=== PATIENT | female | born 1955 | race Asian ===

== ENCOUNTER 2016-12-22 18:27 | Inpatient (IN) | payer OTHER ==
[~2016-12-22] VITALS: Ht 160 cm; Wt 63.5 kg
[2016-12-22 19:30] VITALS: BP 118/65
[2016-12-22] MEDS ORDERED: PIP/TAZO PER PHARMACY MC PRN (20:45)
[2016-12-22] MEDS: IV NORMAL SALINE 1000ML BAG 1,000 ML IV SCH (20:45)
[2016-12-22] MEDS ORDERED: ONDANSETRON PF 4 MG/2 ML VIAL. IV PRN (20:45)
--- NOTE | 2016-12-22 22:56 | PDOC1 ---
History and Physical Date of Admission Date of Admission DATE: 12/22/16 TIME: 22:51 Identification/Chief Complaint Chief Complaint abdominal pain Problems: Source Source: Chart review, Patient History of Present Illness History of Present Illness pt was transferred from [facility]. presented there with acute abdominal pain and malaise. She is traveling here from [place] to visit her son, speaks Ma[place], and the son was avail to translate. Acute pain and nausea, mid epigastric pain, he reports pain to have been 10.10 at other hospital, but she is calm and relaxed now and was trying to sleep when I discussed her care. Past Medical History Cardiovascular: HTN GI: No pertinent hx Hepatobiliary: No pertinent hx Psych: No pertinent hx Rheumatologic: No pertinent hx Family History Family History: Family History Unknown Social History Smoke: No ALCOHOL: none Drugs: None Current Medications Current Medications Current Medications Sodium Chloride 1,000 ml @ 100 mls/hr Q10H IV ; Start 12/22/16 at 20:45 Morphine Sulfate 4 mg PRN Q2HR PRN IV PAIN; Start 12/22/16 at 20:45 Ondansetron HCl (Zofran) 4 mg PRN Q8HRS PRN IV NAUSEA/VOMITING; Start at 20:45 Piperacillin Sod/ Tazobactam Sod (Zosyn Per Pharmacy) 1 each PRN DAILY PRN MC SEE COMMENTS; Start 12/22/16 at 20:45 Piperacillin Sod/ Tazobactam Sod (Zosyn) 3.375 gm Q6HRS IVP ; Start 12/23/16 at 00:00 Simvastatin (Zocor) 20 mg HS PO ; Start 12/23/16 at 21:00 Hydrochlorothiazide (Hydrodiuril) 25 mg DAILY PO ; Start 12/23/16 at 09:00 Amlodipine Besylate (Norvasc) 10 mg DAILY PO ; Start 12/23/16 at 09:00 Carvedilol (Coreg) 12.5 mg BIDWMEALS PO ; Start 12/23/16 at 08:00 Allergies Allergies: Coded Allergies: No Known Drug Allergies (Unverified , 12/22/16) ROS Review of System unable due to language barrier Physical Exam General: Alert, Cooperative, mild distress HEENT: EOMI, Mucous membr. moist/pink Lungs: Normal air movement Heart: no gallops, no murmurs Abdomen: Soft, Other (tender epigastrum) Extremities: No edema, Normal pulses Skin: No rashes, No breakdown Neuro: Sensation intact Psych/Mental Status: Mood NL Vitals Vitals Vital Signs Date Time Temp Pulse Resp B/P (MAP) Pulse Ox O2 Delivery O2 Flow Rate FiO2 12/22/16 19:30 99.7 74 16 118/65 (82) 98 Nasal Cannula 2.0 99.7 VTE Prophylaxis Ordered VTE Prophylaxis Devices: Yes VTE Pharmacological Prophylaxi: No Assessment/Plan Assessment/Plan acute abd pain, acute cholecystitis with choledochalithiasis seen on CT scan at outside hospital, IV zosyn started, will contine and make NPO and consult Surgery acute transaminitis, AST 894, ALT 1313, will repeat in AM, consult GI Bili 2.3 WBC 12. 6, leukocytosis only, no other sign of sepsis here. htn at baseline, mult agents, cont as able, hold for hypotension IV fluid 100/jht hypokalemia 3.1, treated at [facility], repeat in AM admit ORIN FINE MD Dec 22, 2016 22:56
[2016-12-22 22:58] VITALS: BP 124/66
[2016-12-23] VITALS (10 sets, daily range): BP systolic 101–120; BP diastolic 36–70
[2016-12-23] MEDS: PIPERACILLIN/TAZO IV Push 3.375 GM VIAL. IVP SCH ×5 (00:03→23:47)
[2016-12-23 05:37] LABS: INR 1.1 (0.8-1.1); PROTHROMBIN TIME PATIENT 13.3 SEC (11.7-14.0)
[2016-12-23 05:44] LABS: BASO % 0 % (0-3); EOS % 0 % (0-3); HEMATOCRIT 35.2 % (36.0-47.0); HEMOGLOBIN 12.2 g/dL (12.0-15.5); LYMPH # 0.6 x10^3/uL (1.0-4.8); LYMPH % 5 % (24-48); MEAN CORPUSCULAR HEMOGLOBIN 32 pg (25-35); MEAN CORPUSCULAR HGB CONC 35 g/dL (31-37); MEAN CORPUSCULAR VOLUME 91 fL (79-100); MONO % 5 % (0-9); NEUT % 90 % (31-73); PLATELET COUNT 178 x10^3/uL (140-400); RED BLOOD COUNT 3.86 x10^6/uL (3.50-5.40); RED CELL DISTRIBUTION WIDTH 12.9 % (11.5-14.5)
[2016-12-23 06:02] LABS: ALBUMIN 2.9 g/dL (3.4-5.0); ALBUMIN/GLOBULIN RATIO 0.7 (1.0-1.7); CALCIUM 8.7 mg/dL (8.5-10.1); CREATININE 0.7 mg/dL (0.6-1.0); GFR 84.5; TOTAL BILIRUBIN 3.8 mg/dL (0.2-1.0); TOTAL PROTEIN 6.9 g/dL (6.4-8.2)
[2016-12-23 06:05] LABS: POTASSIUM 2.6 mmol/L (3.5-5.1)
[2016-12-23] MEDS: IV NORMAL SALINE 1000ML BAG 1,000 ML IV SCH (06:45)
[2016-12-23] MEDS: CARVEDILOL 12.5 MG TABLET. PO SCH ×2 (08:00→18:36)
--- NOTE | 2016-12-23 08:39 | PDOC2 ---
GI CONSULT Reason For Consult: Choledocholithiasis HPI: HPI: 61 y/o female transferred from [facility]. History from chart and via phone w/ son who translates. 4-5 epigastric pain radiating to back, worse yesterday. Denies n/v, diarrhea, fever. Found w/ elevated LFTs and abnormal imaging w/ distended GB w/ sludge and probable calculi, intrahepatic and extra hepatic bile dilatation, and choledocholithiasis (CBD 14mm w/ 9mm density, probable stone). Labs below, bili worse. Lipase WNL @ [facility]. PMH: PMH: HTN, HLD FH: Family History: No pertinent hx Social History: Smoke: No ALCOHOL: none Drugs: None ROS: GEN: Denies fevers, chills, sweats HEENT: Denies blurred vision, sore throat CV: Denies chest pain RESP: Denies shortness of air, cough GI: Per HPI : Denies hematuria, dysuria ENDO: Denies weight changes NEURO: Denies confusion, dizziness MSK: Denies weakness, joint pain/swelling SKIN: Denies jaundice, pruritus Vitals: Vitals: Vital Signs Date Time Temp Pulse Resp B/P (MAP) Pulse Ox O2 Delivery O2 Flow Rate FiO2 12/23/16 03:08 98.5 74 18 120/60 (80) 98 Nasal Cannula 2.0 98.5 Labs: Labs: Laboratory Tests Test 12/23/16 04:04 White Blood Count 13.0 x10^3/uL (4.0-11.0) Red Blood Count 3.86 x10^6/uL (3.50-5.40) Hemoglobin 12.2 g/dL (12.0-15.5) Hematocrit 35.2 % (36.0-47.0) Mean Corpuscular Volume 91 fL (79-100) Mean Corpuscular Hemoglobin 32 pg (25-35) Mean Corpuscular Hemoglobin Concent 35 g/dL (31-37) Red Cell Distribution Width 12.9 % (11.5-14.5) Platelet Count 178 x10^3/uL (140-400) Neutrophils (%) (Auto) 90 % (31-73) Lymphocytes (%) (Auto) 5 % (24-48) Monocytes (%) (Auto) 5 % (0-9) Eosinophils (%) (Auto) 0 % (0-3) Basophils (%) (Auto) 0 % (0-3) Neutrophils # (Auto) 11.7 x10^3uL (1.8-7.7) Lymphocytes # (Auto) 0.6 x10^3/uL (1.0-4.8) Monocytes # (Auto) 0.6 x10^3/uL (0.0-1.1) Eosinophils # (Auto) 0.0 x10^3/uL (0.0-0.7) Basophils # (Auto) 0.0 x10^3/uL (0.0-0.2) Prothrombin Time 13.3 SEC (11.7-14.0) Prothromb Time International Ratio 1.1 (0.8-1.1) Sodium Level 140 mmol/L (136-145) Potassium Level 2.6 mmol/L (3.5-5.1) Chloride Level 102 mmol/L (98-107) Carbon Dioxide Level 29 mmol/L (21-32) Anion Gap 9 (6-14) Blood Urea Nitrogen 14 mg/dL (7-20) Creatinine 0.7 mg/dL (0.6-1.0) Estimated GFR (Cockcroft-Gault) 84.5 BUN/Creatinine Ratio 20 (6-20) Glucose Level 132 mg/dL (70-99) Calcium Level 8.7 mg/dL (8.5-10.1) Magnesium Level 2.0 mg/dL (1.8-2.4) Total Bilirubin 3.8 mg/dL (0.2-1.0) Aspartate Amino Transf (AST/SGOT) 652 U/L (15-37) Alanine Aminotransferase (ALT/SGPT) 1226 U/L (14-59) Alkaline Phosphatase 366 U/L (46-116) Total Protein 6.9 g/dL (6.4-8.2) Albumin 2.9 g/dL (3.4-5.0) Albumin/Globulin Ratio 0.7 (1.0-1.7) Allergies: Coded Allergies: No Known Drug Allergies (Unverified , 12/22/16) Medications: Current Medications Medications (Trade) Dose Ordered Sig/Justin Route PRN Reason Start Time Stop Time Status Last Admin Dose Admin Sodium Chloride 1,000 ml @ 100 mls/hr Q10H IV 12/22/16 20:45 12/22/16 20:45 Piperacillin Sod/ Tazobactam Sod (Zosyn) 3.375 gm Q6HRS IVP 12/23/16 00:00 12/23/16 06:26 Potassium Chloride/Dextrose/ Sod Cl 1,000 ml @ 100 mls/hr BID IV 12/23/16 09:00 12/23/16 06:26 Imaging: Imaging: Per [facility] recs PE: GEN: NAD HEENT: Atraumatic, PERRL LUNGS: CTAB HEART: RRR ABD: NABS, epigastric tenderness EXTREMITY: No edema SKIN: ?jaundice NEURO/PSYCH: A & O 3 A/P: A/P: Upper abd pain, n/v Elevated LFTs Dilated CBD, probable choledocholithiasis GB sludge/stones Leukocytosis - on IV atbx Hypokalemia - has replacement ordered -- Need to correct K+ before ERCP - ?increase rate, defer to primary/anesthesia. D/w primary, RN, and GI lab. Discussed procedure w/ son via phone. JAIME WARREN Dec 23, 2016 08:39
[2016-12-23] MEDS ORDERED: amLODIPine BESYLATE 10 MG TABLET PO SCH (09:00)
[2016-12-23] MEDS ORDERED: POTASSIUM CL 40MEQ D5-0.45NACL 1,000 ML IV PRN (09:00)
[2016-12-23] MEDS ORDERED: hydroCHLOROthiazide 25 MG TABLET PO SCH (09:00)
[2016-12-23] MEDS ORDERED: POTASSIUM CL 40MEQ D5-0.45NACL 1,000 ML IV SCH (09:00)
[2016-12-23 09:05] LABS: PLT ESTIMATE ADEQUATE (ADEQUATE)
[2016-12-23] MEDS ORDERED: POTASSIUM CHLORIDE 40 MEQ in IV NORMAL SALINE 500ML BAG 500 ML IV ONE (11:00)
--- NOTE | 2016-12-23 11:09 | PDOC2 ---
KEVINJEROME Sunshine NURSE LEADER 12/23/16 1109: CONSULT Date of Consult Date of Consult DATE: 12/23/16 TIME: 11:04 Reason for Consult Reason for Consult: cholecystitis Referring Physician Referring Physician: Dr Romo Identification/Chief Complaint Chief Complaint abdominal pain Problems: Source Source: Caregiver, Chart review, Patient History of Present Illness Reason for Visit: Patient son interprets for patient. 4 day history of upper abdominal pain. Tried some Vicky Conner---did not help. yesterday worsening pain with radiation to back. Seen in ER at , choledocholithiasis--GI evaluated, plans for ERCP today Past Medical History Cardiovascular: HTN GI: No pertinent hx Hepatobiliary: No pertinent hx Psych: No pertinent hx Rheumatologic: No pertinent hx Past Surgical History Past Surgical History: No pertinent history Family History Family History: Family History Unknown Social History No ALCOHOL: none Drugs: None Current Medications Current Medications Current Medications Sodium Chloride 1,000 ml @ 100 mls/hr Q10H IV Last administered on 12/22/16 20:45; Start 12/22/16 at 20:45; Stop 12/23/16 at 08:51; Status DC Morphine Sulfate 4 mg PRN Q2HR PRN IV PAIN; Start 12/22/16 at 20:45 Ondansetron HCl (Zofran) 4 mg PRN Q8HRS PRN IV NAUSEA/VOMITING; Start at 20:45 Piperacillin Sod/ Tazobactam Sod (Zosyn Per Pharmacy) 1 each PRN DAILY PRN MC SEE COMMENTS; Start 12/22/16 at 20:45 Piperacillin Sod/ Tazobactam Sod (Zosyn) 3.375 gm Q6HRS IVP Last administered on 12/23/16 06:26; Start 12/23/16 at 00:00 Simvastatin (Zocor) 20 mg HS PO ; Start 12/23/16 at 21:00 Hydrochlorothiazide (Hydrodiuril) 25 mg DAILY PO ; Start 12/23/16 at 09:00 Amlodipine Besylate (Norvasc) 10 mg DAILY PO ; Start 12/23/16 at 09:00 Carvedilol (Coreg) 12.5 mg BIDWMEALS PO ; Start 12/23/16 at 08:00 Potassium Chloride/Dextrose/ Sod Cl 1,000 ml @ 100 mls/hr BID IV Last administered on 12/23/16t 06:26; Start 12/23/16 at 09:00; Stop 12/23/16 at 09 :00; Status DC Potassium Chloride/Dextrose/ Sod Cl 1,000 ml @ 250 mls/hr CONT PRN IV SEE I/O RECORD; Start 12/23/16 at 09:00 Potassium Chloride 40 meq/ Sodium Chloride 520 ml @ 130 mls/hr 1X ONCE IV ; Start 12/23/16 at 11:00; Stop 12/23/16 at 14:59 Allergies Allergies: Coded Allergies: No Known Drug Allergies (Unverified , 12/22/16) ROS General: No: Chills, Other (fevers) PSYCHOLOGICAL ROS: No: Anxiety, Depression Eyes: No Blurry vision, No Double vision Hematological and Lymphatic: No: Bleeding Problems, Blood Clots Respiratory: No: Cough, Shortness of breath Cardiovascular: No Chest Pain, No Palpitations Gastrointestinal: Yes Other (see hpi) Genitourinary: No Dysuria, No Hematuria Musculoskeletal: Yes Muscle Pain (back), No Joint Pain Neurological: No Impaired Coord/balance, No Seizures Skin: No Pruritus, No Rash Physical Exam General: Alert, Oriented X3, Cooperative, No acute distress HEENT: PERRLA, Mucous membr. moist/pink, Other (jaundice) Lungs: Clear to auscultation, Normal air movement Heart: Regular rate, Normal S1, Normal S2, No murmurs Abdomen: Soft, Other (ND, upper abdominal TTP) Extremities: No clubbing, No cyanosis Skin: No rashes, No breakdown Neuro: Normal gait, Normal speech Psych/Mental Status: Mental status NL, Mood NL MUSCULOSKELETAL: No deformity, No swelling Vitals VITALS Vital Signs Date Time Temp Pulse Resp B/P (MAP) Pulse Ox O2 Delivery O2 Flow Rate FiO2 12/23/16 09:43 Nasal Cannula 2.0 12/23/16 07:00 98.8 66 18 119/66 (83) 98 98.8 Labs Labs Laboratory Tests Test 12/23/16 04:04 White Blood Count 13.0 x10^3/uL (4.0-11.0) Red Blood Count 3.86 x10^6/uL (3.50-5.40) Hemoglobin 12.2 g/dL (12.0-15.5) Hematocrit 35.2 % (36.0-47.0) Mean Corpuscular Volume 91 fL (79-100) Mean Corpuscular Hemoglobin 32 pg (25-35) Mean Corpuscular Hemoglobin Concent 35 g/dL (31-37) Red Cell Distribution Width 12.9 % (11.5-14.5) Platelet Count 178 x10^3/uL (140-400) Neutrophils (%) (Auto) 90 % (31-73) Lymphocytes (%) (Auto) 5 % (24-48) Monocytes (%) (Auto) 5 % (0-9) Eosinophils (%) (Auto) 0 % (0-3) Basophils (%) (Auto) 0 % (0-3) Neutrophils # (Auto) 11.7 x10^3uL (1.8-7.7) Lymphocytes # (Auto) 0.6 x10^3/uL (1.0-4.8) Monocytes # (Auto) 0.6 x10^3/uL (0.0-1.1) Eosinophils # (Auto) 0.0 x10^3/uL (0.0-0.7) Basophils # (Auto) 0.0 x10^3/uL (0.0-0.2) Segmented Neutrophils % 86 % (35-66) Band Neutrophils % 11 % (0-9) Lymphocytes % 2 % (24-48) Monocytes % 1 % (0-10) Platelet Estimate Adequate (ADEQUATE) Prothrombin Time 13.3 SEC (11.7-14.0) Prothromb Time International Ratio 1.1 (0.8-1.1) Sodium Level 140 mmol/L (136-145) Potassium Level 2.6 mmol/L (3.5-5.1) Chloride Level 102 mmol/L (98-107) Carbon Dioxide Level 29 mmol/L (21-32) Anion Gap 9 (6-14) Blood Urea Nitrogen 14 mg/dL (7-20) Creatinine 0.7 mg/dL (0.6-1.0) Estimated GFR (Cockcroft-Gault) 84.5 BUN/Creatinine Ratio 20 (6-20) Glucose Level 132 mg/dL (70-99) Calcium Level 8.7 mg/dL (8.5-10.1) Magnesium Level 2.0 mg/dL (1.8-2.4) Total Bilirubin 3.8 mg/dL (0.2-1.0) Aspartate Amino Transf (AST/SGOT) 652 U/L (15-37) Alanine Aminotransferase (ALT/SGPT) 1226 U/L (14-59) Alkaline Phosphatase 366 U/L (46-116) Total Protein 6.9 g/dL (6.4-8.2) Albumin 2.9 g/dL (3.4-5.0) Albumin/Globulin Ratio 0.7 (1.0-1.7) Laboratory Tests Test 12/23/16 04:04 White Blood Count 13.0 x10^3/uL (4.0-11.0) Red Blood Count 3.86 x10^6/uL (3.50-5.40) Hemoglobin 12.2 g/dL (12.0-15.5) Hematocrit 35.2 % (36.0-47.0) Mean Corpuscular Volume 91 fL (79-100) Mean Corpuscular Hemoglobin 32 pg (25-35) Mean Corpuscular Hemoglobin Concent 35 g/dL (31-37) Red Cell Distribution Width 12.9 % (11.5-14.5) Platelet Count 178 x10^3/uL (140-400) Neutrophils (%) (Auto) 90 % (31-73) Lymphocytes (%) (Auto) 5 % (24-48) Monocytes (%) (Auto) 5 % (0-9) Eosinophils (%) (Auto) 0 % (0-3) Basophils (%) (Auto) 0 % (0-3) Neutrophils # (Auto) 11.7 x10^3uL (1.8-7.7) Lymphocytes # (Auto) 0.6 x10^3/uL (1.0-4.8) Monocytes # (Auto) 0.6 x10^3/uL (0.0-1.1) Eosinophils # (Auto) 0.0 x10^3/uL (0.0-0.7) Basophils # (Auto) 0.0 x10^3/uL (0.0-0.2) Segmented Neutrophils % 86 % (35-66) Band Neutrophils % 11 % (0-9) Lymphocytes % 2 % (24-48) Monocytes % 1 % (0-10) Platelet Estimate Adequate (ADEQUATE) Prothrombin Time 13.3 SEC (11.7-14.0) Prothromb Time International Ratio 1.1 (0.8-1.1) Sodium Level 140 mmol/L (136-145) Potassium Level 2.6 mmol/L (3.5-5.1) Chloride Level 102 mmol/L (98-107) Carbon Dioxide Level 29 mmol/L (21-32) Anion Gap 9 (6-14) Blood Urea Nitrogen 14 mg/dL (7-20) Creatinine 0.7 mg/dL (0.6-1.0) Estimated GFR (Cockcroft-Gault) 84.5 BUN/Creatinine Ratio 20 (6-20) Glucose Level 132 mg/dL (70-99) Calcium Level 8.7 mg/dL (8.5-10.1) Magnesium Level 2.0 mg/dL (1.8-2.4) Total Bilirubin 3.8 mg/dL (0.2-1.0) Aspartate Amino Transf (AST/SGOT) 652 U/L (15-37) Alanine Aminotransferase (ALT/SGPT) 1226 U/L (14-59) Alkaline Phosphatase 366 U/L (46-116) Total Protein 6.9 g/dL (6.4-8.2) Albumin 2.9 g/dL (3.4-5.0) Albumin/Globulin Ratio 0.7 (1.0-1.7) Assessment/Plan Assessment/Plan choledocholithiasis hypokalemia--replacement per [facility] plans for ERCP on abx will follow, will need lap lexii at some point YOLANDE MEDELLIN MD 12/23/16 1207: CONSULT Allergies Allergies: Coded Allergies: No Known Drug Allergies (Unverified , 12/22/16) Assessment/Plan Assessment/Plan Patient seen and examined by me. Resting comfortably in bed. Mild TTP RUQ. U/S reviewed. Planned for ERCP today will need L/S Lexii after. Agree with Kevin's assessment and plan. JEROME PACHECO APRN Dec 23, 2016 11:09 YOLANDE MEDELLIN MD Dec 23, 2016 12:07
--- NOTE | 2016-12-23 14:53 | PDOC ---
PROGRESS NOTES Chief Complaint Chief Complaint acute abd pain, acute cholecystitis with choledochalithiasis seen on CT scan at outside hospital acute transaminitis, AST 894, ALT 1313 , Bili 2.3 sepsis HTN hypoKalemia plan: fu with sx, gi, zosyn cover for possible cholangitis ERCP today need sx chyna sometime pain control npo cont only coreg for HTN dvt, gi ppx labs tmr replete k History of Present Illness History of Present Illness ROS: no fever, chills, sob, chest pain Worsening LFT pain is slightly better WBC higher too Vitals Vitals Vital Signs Date Time Temp Pulse Resp B/P (MAP) Pulse Ox O2 Delivery O2 Flow Rate FiO2 12/23/16 11:00 100.2 71 18 120/56 (77) 97 Nasal Cannula 2.0 100.2 Physical Exam General: Alert, Oriented X3, Cooperative, No acute distress Heart: Regular rate, Normal S1, Normal S2, No murmurs Lungs: Clear Abdomen: Normal bowel sounds, Soft, Other (ND, upper abdominal TTP) Extremities: No clubbing, No cyanosis Skin: No rashes, No breakdown Labs LABS Laboratory Tests Test 12/23/16 04:04 12/23/16 13:05 White Blood Count 13.0 x10^3/uL (4.0-11.0) Red Blood Count 3.86 x10^6/uL (3.50-5.40) Hemoglobin 12.2 g/dL (12.0-15.5) Hematocrit 35.2 % (36.0-47.0) Mean Corpuscular Volume 91 fL (79-100) Mean Corpuscular Hemoglobin 32 pg (25-35) Mean Corpuscular Hemoglobin Concent 35 g/dL (31-37) Red Cell Distribution Width 12.9 % (11.5-14.5) Platelet Count 178 x10^3/uL (140-400) Neutrophils (%) (Auto) 90 % (31-73) Lymphocytes (%) (Auto) 5 % (24-48) Monocytes (%) (Auto) 5 % (0-9) Eosinophils (%) (Auto) 0 % (0-3) Basophils (%) (Auto) 0 % (0-3) Neutrophils # (Auto) 11.7 x10^3uL (1.8-7.7) Lymphocytes # (Auto) 0.6 x10^3/uL (1.0-4.8) Monocytes # (Auto) 0.6 x10^3/uL (0.0-1.1) Eosinophils # (Auto) 0.0 x10^3/uL (0.0-0.7) Basophils # (Auto) 0.0 x10^3/uL (0.0-0.2) Segmented Neutrophils % 86 % (35-66) Band Neutrophils % 11 % (0-9) Lymphocytes % 2 % (24-48) Monocytes % 1 % (0-10) Platelet Estimate Adequate (ADEQUATE) Prothrombin Time 13.3 SEC (11.7-14.0) Prothromb Time International Ratio 1.1 (0.8-1.1) Sodium Level 140 mmol/L (136-145) Potassium Level 2.6 mmol/L (3.5-5.1) 3.5 mmol/L (3.5-5.1) Chloride Level 102 mmol/L (98-107) Carbon Dioxide Level 29 mmol/L (21-32) Anion Gap 9 (6-14) Blood Urea Nitrogen 14 mg/dL (7-20) Creatinine 0.7 mg/dL (0.6-1.0) Estimated GFR (Cockcroft-Gault) 84.5 BUN/Creatinine Ratio 20 (6-20) Glucose Level 132 mg/dL (70-99) Calcium Level 8.7 mg/dL (8.5-10.1) Magnesium Level 2.0 mg/dL (1.8-2.4) Total Bilirubin 3.8 mg/dL (0.2-1.0) Aspartate Amino Transf (AST/SGOT) 652 U/L (15-37) Alanine Aminotransferase (ALT/SGPT) 1226 U/L (14-59) Alkaline Phosphatase 366 U/L (46-116) Total Protein 6.9 g/dL (6.4-8.2) Albumin 2.9 g/dL (3.4-5.0) Albumin/Globulin Ratio 0.7 (1.0-1.7) Comment Review of Relevant I have reviewed the following items les (where applicable) has been applied. Labs Laboratory Tests Test 12/23/16 04:04 12/23/16 13:05 White Blood Count 13.0 x10^3/uL (4.0-11.0) Red Blood Count 3.86 x10^6/uL (3.50-5.40) Hemoglobin 12.2 g/dL (12.0-15.5) Hematocrit 35.2 % (36.0-47.0) Mean Corpuscular Volume 91 fL (79-100) Mean Corpuscular Hemoglobin 32 pg (25-35) Mean Corpuscular Hemoglobin Concent 35 g/dL (31-37) Red Cell Distribution Width 12.9 % (11.5-14.5) Platelet Count 178 x10^3/uL (140-400) Neutrophils (%) (Auto) 90 % (31-73) Lymphocytes (%) (Auto) 5 % (24-48) Monocytes (%) (Auto) 5 % (0-9) Eosinophils (%) (Auto) 0 % (0-3) Basophils (%) (Auto) 0 % (0-3) Neutrophils # (Auto) 11.7 x10^3uL (1.8-7.7) Lymphocytes # (Auto) 0.6 x10^3/uL (1.0-4.8) Monocytes # (Auto) 0.6 x10^3/uL (0.0-1.1) Eosinophils # (Auto) 0.0 x10^3/uL (0.0-0.7) Basophils # (Auto) 0.0 x10^3/uL (0.0-0.2) Segmented Neutrophils % 86 % (35-66) Band Neutrophils % 11 % (0-9) Lymphocytes % 2 % (24-48) Monocytes % 1 % (0-10) Platelet Estimate Adequate (ADEQUATE) Prothrombin Time 13.3 SEC (11.7-14.0) Prothromb Time International Ratio 1.1 (0.8-1.1) Sodium Level 140 mmol/L (136-145) Potassium Level 2.6 mmol/L (3.5-5.1) 3.5 mmol/L (3.5-5.1) Chloride Level 102 mmol/L (98-107) Carbon Dioxide Level 29 mmol/L (21-32) Anion Gap 9 (6-14) Blood Urea Nitrogen 14 mg/dL (7-20) Creatinine 0.7 mg/dL (0.6-1.0) Estimated GFR (Cockcroft-Gault) 84.5 BUN/Creatinine Ratio 20 (6-20) Glucose Level 132 mg/dL (70-99) Calcium Level 8.7 mg/dL (8.5-10.1) Magnesium Level 2.0 mg/dL (1.8-2.4) Total Bilirubin 3.8 mg/dL (0.2-1.0) Aspartate Amino Transf (AST/SGOT) 652 U/L (15-37) Alanine Aminotransferase (ALT/SGPT) 1226 U/L (14-59) Alkaline Phosphatase 366 U/L (46-116) Total Protein 6.9 g/dL (6.4-8.2) Albumin 2.9 g/dL (3.4-5.0) Albumin/Globulin Ratio 0.7 (1.0-1.7) Laboratory Tests Test 12/23/16 04:04 12/23/16 13:05 White Blood Count 13.0 x10^3/uL (4.0-11.0) Red Blood Count 3.86 x10^6/uL (3.50-5.40) Hemoglobin 12.2 g/dL (12.0-15.5) Hematocrit 35.2 % (36.0-47.0) Mean Corpuscular Volume 91 fL (79-100) Mean Corpuscular Hemoglobin 32 pg (25-35) Mean Corpuscular Hemoglobin Concent 35 g/dL (31-37) Red Cell Distribution Width 12.9 % (11.5-14.5) Platelet Count 178 x10^3/uL (140-400) Neutrophils (%) (Auto) 90 % (31-73) Lymphocytes (%) (Auto) 5 % (24-48) Monocytes (%) (Auto) 5 % (0-9) Eosinophils (%) (Auto) 0 % (0-3) Basophils (%) (Auto) 0 % (0-3) Neutrophils # (Auto) 11.7 x10^3uL (1.8-7.7) Lymphocytes # (Auto) 0.6 x10^3/uL (1.0-4.8) Monocytes # (Auto) 0.6 x10^3/uL (0.0-1.1) Eosinophils # (Auto) 0.0 x10^3/uL (0.0-0.7) Basophils # (Auto) 0.0 x10^3/uL (0.0-0.2) Segmented Neutrophils % 86 % (35-66) Band Neutrophils % 11 % (0-9) Lymphocytes % 2 % (24-48) Monocytes % 1 % (0-10) Platelet Estimate Adequate (ADEQUATE) Prothrombin Time 13.3 SEC (11.7-14.0) Prothromb Time International Ratio 1.1 (0.8-1.1) Sodium Level 140 mmol/L (136-145) Potassium Level 2.6 mmol/L (3.5-5.1) 3.5 mmol/L (3.5-5.1) Chloride Level 102 mmol/L (98-107) Carbon Dioxide Level 29 mmol/L (21-32) Anion Gap 9 (6-14) Blood Urea Nitrogen 14 mg/dL (7-20) Creatinine 0.7 mg/dL (0.6-1.0) Estimated GFR (Cockcroft-Gault) 84.5 BUN/Creatinine Ratio 20 (6-20) Glucose Level 132 mg/dL (70-99) Calcium Level 8.7 mg/dL (8.5-10.1) Magnesium Level 2.0 mg/dL (1.8-2.4) Total Bilirubin 3.8 mg/dL (0.2-1.0) Aspartate Amino Transf (AST/SGOT) 652 U/L (15-37) Alanine Aminotransferase (ALT/SGPT) 1226 U/L (14-59) Alkaline Phosphatase 366 U/L (46-116) Total Protein 6.9 g/dL (6.4-8.2) Albumin 2.9 g/dL (3.4-5.0) Albumin/Globulin Ratio 0.7 (1.0-1.7) Medications Current Medications Sodium Chloride 1,000 ml @ 100 mls/hr Q10H IV Last administered on 12/22/16t 20:45; Start 12/22/16 at 20:45; Stop 12/23/16 at 08:51; Status DC Morphine Sulfate 4 mg PRN Q2HR PRN IV PAIN; Start 12/22/16 at 20:45 Ondansetron HCl (Zofran) 4 mg PRN Q8HRS PRN IV NAUSEA/VOMITING; Start at 20:45 Piperacillin Sod/ Tazobactam Sod (Zosyn Per Pharmacy) 1 each PRN DAILY PRN MC SEE COMMENTS; Start 12/22/16 at 20:45 Piperacillin Sod/ Tazobactam Sod (Zosyn) 3.375 gm Q6HRS IVP Last administered on 12/23/16 11:20; Start 12/23/16 at 00:00 Simvastatin (Zocor) 20 mg HS PO ; Start 12/23/16 at 21:00 Hydrochlorothiazide (Hydrodiuril) 25 mg DAILY PO ; Start 12/23/16 at 09:00 Amlodipine Besylate (Norvasc) 10 mg DAILY PO ; Start 12/23/16 at 09:00 Carvedilol (Coreg) 12.5 mg BIDWMEALS PO ; Start 12/23/16 at 08:00 Potassium Chloride/Dextrose/ Sod Cl 1,000 ml @ 100 mls/hr BID IV Last administered on 12/23/16 06:26; Start 12/23/16 at 09:00; Stop 12/23/16 at 09 :00; Status DC Potassium Chloride/Dextrose/ Sod Cl 1,000 ml @ 250 mls/hr CONT PRN IV SEE I/O RECORD; Start 12/23/16 at 09:00 Potassium Chloride 40 meq/ Sodium Chloride 520 ml @ 130 mls/hr 1X ONCE IV Last administered on 12/23/16 11:19; Start 12/23/16 at 11:00; Stop 12/23/16 at 14:59 Vitals/I & O Vital Sign - Last 24 Hours 12/22/16 12/22/16 12/22/16 12/23/16 19:30 19:35 22:58 03:08 Temp 99.7 98.6 98.5 99.7 98.6 98.5 Pulse 74 76 74 Resp 16 18 18 B/P (MAP) 118/65 (82) 124/66 (85) 120/60 (80) Pulse Ox 98 98 98 O2 Delivery Nasal Cannula Nasal Cannula Nasal Cannula Nasal Cannula O2 Flow Rate 2.0 2.0 2.0 2.0 12/23/16 12/23/16 12/23/16 07:00 09:43 11:00 Temp 98.8 100.2 98.8 100.2 Pulse 66 71 Resp 18 18 B/P (MAP) 119/66 (83) 120/56 (77) Pulse Ox 98 97 O2 Delivery Nasal Cannula Nasal Cannula Nasal Cannula O2 Flow Rate 2.0 2.0 2.0 Intake and Output 12/22/16 12/22/16 12/23/16 14:59 22:59 06:59 Intake Total 0 ml Balance 0 ml JAMIE LEMUS MD Dec 23, 2016 14:53
[2016-12-23] MEDS ORDERED: ONDANSETRON PF 4 MG/2 ML VIAL. IV PRN (15:00)
[2016-12-23] MEDS ORDERED: ACETAMINOPHEN 325 MG TABLET. PO PRN (15:00)
[2016-12-23] MEDS ORDERED: DOCUSATE SODIUM 100 MG CAPSULE. PO PRN (15:00)
[2016-12-23] MEDS ORDERED: hydrALAZINE 20 MG/ML VIAL. IVP PRN (15:00)
[2016-12-23] MEDS ORDERED: MORPHINE SULFATE 2 MG/ML DISP.SYRIN. IV PRN (15:00)
[2016-12-23] MEDS ORDERED: traMADol 50 MG TABLET PO PRN (15:00)
[2016-12-23] MEDS ORDERED: IOHEXOL 300 MG/ML 100ML VIAL. ONE (16:19)
[2016-12-23] MEDS ORDERED: LIDOCAINE 2% PF Vial for OR 5 ML VIAL. ONE (16:37)
--- NOTE | 2016-12-23 17:22 | PDOC4 ---
PROCEDURE Procedure ERCP/ES/balloon stone extraction. Indication: choledocholithiasis Meds: GETA per anesthesia. Findings: E not seen. G and D normal. Bulging papilla with purulent drainage. Small periampulary tic. Cannulated, on cholangiogram to bifurcation, 2 8-10 mm stones. ES done, generous. --One stone exited spontaneously. -second stone extracted with balloon. Occlusion cholangiogram after with no further stones seen. Tiana. well. IMP: choledocholithiasis, resolved. cholangitis REC; Clears ok tonight. Continue antibiotics. chyna when feasible. Thanks. MANUELITO PENDLETON MD Dec 23, 2016 17:22
--- NOTE | 2016-12-23 17:55 | RAD ---
Indication: Status post ERCP. TECHNIQUE: Fluoroscopy images of the biliary tree and CBD status post and removal of 2 stones. Total fluoroscopy time of 2 minutes 7 seconds with 3 images. COMPARISON: None FINDINGS: CBD is diffusely dilated . The central intrahepatic biliary ducts show no abnormality. There is claw sign as suggested by contrast around the focal lucency in the distal CBD. This likely represents air. However distal CBD stone is not ruled out. Correlate with ERCP report. IMPRESSION: As above. Electronically signed by: Wade Winston DO (12/23/2016 5:52 PM) [facility]
[2016-12-23] MEDS: FAMOTIDINE 20 MG/2 ML VIAL IVP SCH (20:42)
[2016-12-23] MEDS: SIMVASTATIN 20 MG TABLET PO SCH (20:42)
[2016-12-24] VITALS (10 sets, daily range): BP systolic 99–126; BP diastolic 47–68
[2016-12-24] MEDS: POTASSIUM CL 40MEQ D5-0.45NACL 1,000 ML IV SCH ×3 (01:53→23:52)
[2016-12-24] MEDS: PIPERACILLIN/TAZO IV Push 3.375 GM VIAL. IVP SCH ×4 (05:37→23:51)
[2016-12-24 05:58] LABS: BASO % 0 % (0-3); EOS % 1 % (0-3); HEMATOCRIT 33.3 % (36.0-47.0); HEMOGLOBIN 11.6 g/dL (12.0-15.5); LYMPH # 0.8 x10^3/uL (1.0-4.8); LYMPH % 9 % (24-48); MEAN CORPUSCULAR HEMOGLOBIN 32 pg (25-35); MEAN CORPUSCULAR HGB CONC 35 g/dL (31-37); MEAN CORPUSCULAR VOLUME 91 fL (79-100); MONO % 5 % (0-9); NEUT % 85 % (31-73); PLATELET COUNT 143 x10^3/uL (140-400); RED BLOOD COUNT 3.67 x10^6/uL (3.50-5.40); WHITE BLOOD COUNT 8.5 x10^3/uL (4.0-11.0)
[2016-12-24 06:22] LABS: ALBUMIN 2.4 g/dL (3.4-5.0); ALBUMIN/GLOBULIN RATIO 0.6 (1.0-1.7); CALCIUM 8.4 mg/dL (8.5-10.1); CREATININE 0.7 mg/dL (0.6-1.0); GFR 84.5; POTASSIUM 3.4 mmol/L (3.5-5.1); TOTAL BILIRUBIN 4.7 mg/dL (0.2-1.0); TOTAL PROTEIN 6.4 g/dL (6.4-8.2)
[2016-12-24] MEDS ORDERED: IV RINGERS,LACTATED 1000ML 1,000 ML IV SCH (07:29)
[2016-12-24] MEDS ORDERED: MORPHINE SULFATE 2 MG/ML DISP.SYRIN. IV PRN (07:30)
[2016-12-24] MEDS ORDERED: LIDOCAINE 1% PF 2 ML VIAL. ID PRN (07:30)
[2016-12-24] MEDS ORDERED: HYDROmorphone 2 MG/ML VIAL IV PRN (07:30)
[2016-12-24] MEDS ORDERED: fentaNYL PF VIAL 100 MCG/2 ML VIAL IV PRN ×2 (07:30)
[2016-12-24] MEDS ORDERED: PROCHLORPERAZINE 10 MG/2 ML VIAL. IV PRN (07:30)
--- NOTE | 2016-12-24 08:15 | PDOC ---
JEROME PACHECO [employer] 12/24/16 0815: SURGICAL PROGRESS NOTE Subjective some RUQ pain still no emesis Vital Signs Vital Signs Date Time Temp Pulse Resp B/P (MAP) Pulse Ox O2 Delivery O2 Flow Rate FiO2 12/24/16 03:35 99.3 70 16 103/59 (74) 97 Room Air 99.3 12/23/16 23:16 2.0 I&O Intake and Output 12/24/16 07:00 Intake Total 200 ml Balance 200 ml Intake Oral 200 ml # Voids 2 General: Alert, Oriented X3, Cooperative, No acute distress HEENT: Other (jaundice) Abdomen: Soft, Other (RUQ TTP) Labs Laboratory Tests Test 12/23/16 04:04 12/23/16 13:05 12/24/16 05:00 White Blood Count 13.0 x10^3/uL (4.0-11.0) 8.5 x10^3/uL (4.0-11.0) Red Blood Count 3.86 x10^6/uL (3.50-5.40) 3.67 x10^6/uL (3.50-5.40) Hemoglobin 12.2 g/dL (12.0-15.5) 11.6 g/dL (12.0-15.5) Hematocrit 35.2 % (36.0-47.0) 33.3 % (36.0-47.0) Mean Corpuscular Volume 91 fL (79-100) 91 fL (79-100) Mean Corpuscular Hemoglobin 32 pg (25-35) 32 pg (25-35) Mean Corpuscular Hemoglobin Concent 35 g/dL (31-37) 35 g/dL (31-37) Red Cell Distribution Width 12.9 % (11.5-14.5) 13.0 % (11.5-14.5) Platelet Count 178 x10^3/uL (140-400) 143 x10^3/uL (140-400) Neutrophils (%) (Auto) 90 % (31-73) 85 % (31-73) Lymphocytes (%) (Auto) 5 % (24-48) 9 % (24-48) Monocytes (%) (Auto) 5 % (0-9) 5 % (0-9) Eosinophils (%) (Auto) 0 % (0-3) 1 % (0-3) Basophils (%) (Auto) 0 % (0-3) 0 % (0-3) Neutrophils # (Auto) 11.7 x10^3uL (1.8-7.7) 7.2 x10^3uL (1.8-7.7) Lymphocytes # (Auto) 0.6 x10^3/uL (1.0-4.8) 0.8 x10^3/uL (1.0-4.8) Monocytes # (Auto) 0.6 x10^3/uL (0.0-1.1) 0.4 x10^3/uL (0.0-1.1) Eosinophils # (Auto) 0.0 x10^3/uL (0.0-0.7) 0.1 x10^3/uL (0.0-0.7) Basophils # (Auto) 0.0 x10^3/uL (0.0-0.2) 0.0 x10^3/uL (0.0-0.2) Segmented Neutrophils % 86 % (35-66) Band Neutrophils % 11 % (0-9) Lymphocytes % 2 % (24-48) Monocytes % 1 % (0-10) Platelet Estimate Adequate (ADEQUATE) Prothrombin Time 13.3 SEC (11.7-14.0) Prothromb Time International Ratio 1.1 (0.8-1.1) Sodium Level 140 mmol/L (136-145) 139 mmol/L (136-145) Potassium Level 2.6 mmol/L (3.5-5.1) 3.5 mmol/L (3.5-5.1) 3.4 mmol/L (3.5-5.1) Chloride Level 102 mmol/L (98-107) 104 mmol/L (98-107) Carbon Dioxide Level 29 mmol/L (21-32) 28 mmol/L (21-32) Anion Gap 9 (6-14) 7 (6-14) Blood Urea Nitrogen 14 mg/dL (7-20) 12 mg/dL (7-20) Creatinine 0.7 mg/dL (0.6-1.0) 0.7 mg/dL (0.6-1.0) Estimated GFR (Cockcroft-Gault) 84.5 84.5 BUN/Creatinine Ratio 20 (6-20) 17 (6-20) Glucose Level 132 mg/dL (70-99) 117 mg/dL (70-99) Calcium Level 8.7 mg/dL (8.5-10.1) 8.4 mg/dL (8.5-10.1) Magnesium Level 2.0 mg/dL (1.8-2.4) Total Bilirubin 3.8 mg/dL (0.2-1.0) 4.7 mg/dL (0.2-1.0) Aspartate Amino Transf (AST/SGOT) 652 U/L (15-37) 215 U/L (15-37) Alanine Aminotransferase (ALT/SGPT) 1226 U/L (14-59) 691 U/L (14-59) Alkaline Phosphatase 366 U/L (46-116) 381 U/L (46-116) Total Protein 6.9 g/dL (6.4-8.2) 6.4 g/dL (6.4-8.2) Albumin 2.9 g/dL (3.4-5.0) 2.4 g/dL (3.4-5.0) Albumin/Globulin Ratio 0.7 (1.0-1.7) 0.6 (1.0-1.7) Laboratory Tests Test 12/23/16 13:05 12/24/16 05:00 Potassium Level 3.5 mmol/L (3.5-5.1) 3.4 mmol/L (3.5-5.1) White Blood Count 8.5 x10^3/uL (4.0-11.0) Red Blood Count 3.67 x10^6/uL (3.50-5.40) Hemoglobin 11.6 g/dL (12.0-15.5) Hematocrit 33.3 % (36.0-47.0) Mean Corpuscular Volume 91 fL (79-100) Mean Corpuscular Hemoglobin 32 pg (25-35) Mean Corpuscular Hemoglobin Concent 35 g/dL (31-37) Red Cell Distribution Width 13.0 % (11.5-14.5) Platelet Count 143 x10^3/uL (140-400) Neutrophils (%) (Auto) 85 % (31-73) Lymphocytes (%) (Auto) 9 % (24-48) Monocytes (%) (Auto) 5 % (0-9) Eosinophils (%) (Auto) 1 % (0-3) Basophils (%) (Auto) 0 % (0-3) Neutrophils # (Auto) 7.2 x10^3uL (1.8-7.7) Lymphocytes # (Auto) 0.8 x10^3/uL (1.0-4.8) Monocytes # (Auto) 0.4 x10^3/uL (0.0-1.1) Eosinophils # (Auto) 0.1 x10^3/uL (0.0-0.7) Basophils # (Auto) 0.0 x10^3/uL (0.0-0.2) Sodium Level 139 mmol/L (136-145) Chloride Level 104 mmol/L (98-107) Carbon Dioxide Level 28 mmol/L (21-32) Anion Gap 7 (6-14) Blood Urea Nitrogen 12 mg/dL (7-20) Creatinine 0.7 mg/dL (0.6-1.0) Estimated GFR (Cockcroft-Gault) 84.5 BUN/Creatinine Ratio 17 (6-20) Glucose Level 117 mg/dL (70-99) Calcium Level 8.4 mg/dL (8.5-10.1) Total Bilirubin 4.7 mg/dL (0.2-1.0) Aspartate Amino Transf (AST/SGOT) 215 U/L (15-37) Alanine Aminotransferase (ALT/SGPT) 691 U/L (14-59) Alkaline Phosphatase 381 U/L (46-116) Total Protein 6.4 g/dL (6.4-8.2) Albumin 2.4 g/dL (3.4-5.0) Albumin/Globulin Ratio 0.6 (1.0-1.7) Assessment/Plan cholecystitis, cholangitis, choledocholithiasis s/p ERCP plans for lap chyna today continue abx Problems: TYRELL LUKE MD 12/24/16 1101: SURGICAL PROGRESS NOTE Assessment/Plan Pt seen and examined. Agree with Ms. Kevin's note Pt with c/o RUQ pain, but otherwise improved TTP RUQ d/w pt and pt's son WBC improved and duct has been cleared. LFTS still up TO OR for lap chyna with grams R/B/A d/w pt and pt's son. Risks, including, but not limited to: bleeding, infection, damage to surrounding structures, risk of anesthesia, risk of open Will proceed today, as opposed to waiting, as earlier cholecystectomy associated with fewer complications. They appear to understand, their questions are answered and they agree to proceed. Problems: JEROME PACHECO APRN Dec 24, 2016 08:15 TYRELL LUKE MD Dec 24, 2016 11:01
[2016-12-24] MEDS: CARVEDILOL 12.5 MG TABLET. PO SCH ×2 (08:39→16:26)
[2016-12-24] MEDS ORDERED: ENOXAPARIN 40 MG/0.4 ML SYRINGE. SQ SCH (09:00)
[2016-12-24] MEDS ORDERED: SURGICEL HEMOSTAT 2X3 EACH. ONE (10:26)
[2016-12-24] MEDS ORDERED: BISACODYL 10 MG SUPP.RECT. ONE (10:26)
[2016-12-24] MEDS ORDERED: HEPARIN for IV BOLUS 10,000 UNIT/10 ML VIAL. ONE (10:26)
[2016-12-24] MEDS ORDERED: BUPIVAC MPF-EPI 0.5%-1:200000 30 ML VIAL. ONE (10:26)
[2016-12-24] MEDS ORDERED: IOHEXOL 300 MG/ML 50 ML VIAL. ONE (10:26)
--- NOTE | 2016-12-24 11:16 | PDOC ---
PROGRESS NOTES Chief Complaint Chief Complaint acute abd pain, acute cholecystitis with choledochalithiasis seen on CT scan at outside hospital acute transaminitis, AST and ALT both elevated, bili up a litte sepsis, zosyn to cover for possible cholangitis HTN hypoKalemia History of Present Illness History of Present Illness ROS: no fever, chills, sob, chest pain Worsening LFT to chyna today Vitals Vitals Vital Signs Date Time Temp Pulse Resp B/P (MAP) Pulse Ox O2 Delivery O2 Flow Rate FiO2 12/24/16 08:39 62 110/62 12/24/16 07:00 99.9 16 95 Nasal Cannula 2.0 99.9 Physical Exam General: Alert, Oriented X3, Cooperative, No acute distress Heart: Regular rate, Normal S1, Normal S2, No murmurs Lungs: Clear Abdomen: Soft, Other (RUQ TTP) Extremities: No clubbing, No cyanosis Skin: No rashes, No breakdown Labs LABS Laboratory Tests Test 12/23/16 13:05 12/24/16 05:00 Potassium Level 3.5 mmol/L (3.5-5.1) 3.4 mmol/L (3.5-5.1) White Blood Count 8.5 x10^3/uL (4.0-11.0) Red Blood Count 3.67 x10^6/uL (3.50-5.40) Hemoglobin 11.6 g/dL (12.0-15.5) Hematocrit 33.3 % (36.0-47.0) Mean Corpuscular Volume 91 fL (79-100) Mean Corpuscular Hemoglobin 32 pg (25-35) Mean Corpuscular Hemoglobin Concent 35 g/dL (31-37) Red Cell Distribution Width 13.0 % (11.5-14.5) Platelet Count 143 x10^3/uL (140-400) Neutrophils (%) (Auto) 85 % (31-73) Lymphocytes (%) (Auto) 9 % (24-48) Monocytes (%) (Auto) 5 % (0-9) Eosinophils (%) (Auto) 1 % (0-3) Basophils (%) (Auto) 0 % (0-3) Neutrophils # (Auto) 7.2 x10^3uL (1.8-7.7) Lymphocytes # (Auto) 0.8 x10^3/uL (1.0-4.8) Monocytes # (Auto) 0.4 x10^3/uL (0.0-1.1) Eosinophils # (Auto) 0.1 x10^3/uL (0.0-0.7) Basophils # (Auto) 0.0 x10^3/uL (0.0-0.2) Sodium Level 139 mmol/L (136-145) Chloride Level 104 mmol/L (98-107) Carbon Dioxide Level 28 mmol/L (21-32) Anion Gap 7 (6-14) Blood Urea Nitrogen 12 mg/dL (7-20) Creatinine 0.7 mg/dL (0.6-1.0) Estimated GFR (Cockcroft-Gault) 84.5 BUN/Creatinine Ratio 17 (6-20) Glucose Level 117 mg/dL (70-99) Calcium Level 8.4 mg/dL (8.5-10.1) Total Bilirubin 4.7 mg/dL (0.2-1.0) Aspartate Amino Transf (AST/SGOT) 215 U/L (15-37) Alanine Aminotransferase (ALT/SGPT) 691 U/L (14-59) Alkaline Phosphatase 381 U/L (46-116) Total Protein 6.4 g/dL (6.4-8.2) Albumin 2.4 g/dL (3.4-5.0) Albumin/Globulin Ratio 0.6 (1.0-1.7) Assessment and Plan Assessmemt and Plan to OR today, brenda clemente Problems: Comment Review of Relevant I have reviewed the following items les (where applicable) has been applied. Labs Laboratory Tests Test 12/23/16 04:04 12/23/16 13:05 12/24/16 05:00 White Blood Count 13.0 x10^3/uL (4.0-11.0) 8.5 x10^3/uL (4.0-11.0) Red Blood Count 3.86 x10^6/uL (3.50-5.40) 3.67 x10^6/uL (3.50-5.40) Hemoglobin 12.2 g/dL (12.0-15.5) 11.6 g/dL (12.0-15.5) Hematocrit 35.2 % (36.0-47.0) 33.3 % (36.0-47.0) Mean Corpuscular Volume 91 fL (79-100) 91 fL (79-100) Mean Corpuscular Hemoglobin 32 pg (25-35) 32 pg (25-35) Mean Corpuscular Hemoglobin Concent 35 g/dL (31-37) 35 g/dL (31-37) Red Cell Distribution Width 12.9 % (11.5-14.5) 13.0 % (11.5-14.5) Platelet Count 178 x10^3/uL (140-400) 143 x10^3/uL (140-400) Neutrophils (%) (Auto) 90 % (31-73) 85 % (31-73) Lymphocytes (%) (Auto) 5 % (24-48) 9 % (24-48) Monocytes (%) (Auto) 5 % (0-9) 5 % (0-9) Eosinophils (%) (Auto) 0 % (0-3) 1 % (0-3) Basophils (%) (Auto) 0 % (0-3) 0 % (0-3) Neutrophils # (Auto) 11.7 x10^3uL (1.8-7.7) 7.2 x10^3uL (1.8-7.7) Lymphocytes # (Auto) 0.6 x10^3/uL (1.0-4.8) 0.8 x10^3/uL (1.0-4.8) Monocytes # (Auto) 0.6 x10^3/uL (0.0-1.1) 0.4 x10^3/uL (0.0-1.1) Eosinophils # (Auto) 0.0 x10^3/uL (0.0-0.7) 0.1 x10^3/uL (0.0-0.7) Basophils # (Auto) 0.0 x10^3/uL (0.0-0.2) 0.0 x10^3/uL (0.0-0.2) Segmented Neutrophils % 86 % (35-66) Band Neutrophils % 11 % (0-9) Lymphocytes % 2 % (24-48) Monocytes % 1 % (0-10) Platelet Estimate Adequate (ADEQUATE) Prothrombin Time 13.3 SEC (11.7-14.0) Prothromb Time International Ratio 1.1 (0.8-1.1) Sodium Level 140 mmol/L (136-145) 139 mmol/L (136-145) Potassium Level 2.6 mmol/L (3.5-5.1) 3.5 mmol/L (3.5-5.1) 3.4 mmol/L (3.5-5.1) Chloride Level 102 mmol/L (98-107) 104 mmol/L (98-107) Carbon Dioxide Level 29 mmol/L (21-32) 28 mmol/L (21-32) Anion Gap 9 (6-14) 7 (6-14) Blood Urea Nitrogen 14 mg/dL (7-20) 12 mg/dL (7-20) Creatinine 0.7 mg/dL (0.6-1.0) 0.7 mg/dL (0.6-1.0) Estimated GFR (Cockcroft-Gault) 84.5 84.5 BUN/Creatinine Ratio 20 (6-20) 17 (6-20) Glucose Level 132 mg/dL (70-99) 117 mg/dL (70-99) Calcium Level 8.7 mg/dL (8.5-10.1) 8.4 mg/dL (8.5-10.1) Magnesium Level 2.0 mg/dL (1.8-2.4) Total Bilirubin 3.8 mg/dL (0.2-1.0) 4.7 mg/dL (0.2-1.0) Aspartate Amino Transf (AST/SGOT) 652 U/L (15-37) 215 U/L (15-37) Alanine Aminotransferase (ALT/SGPT) 1226 U/L (14-59) 691 U/L (14-59) Alkaline Phosphatase 366 U/L (46-116) 381 U/L (46-116) Total Protein 6.9 g/dL (6.4-8.2) 6.4 g/dL (6.4-8.2) Albumin 2.9 g/dL (3.4-5.0) 2.4 g/dL (3.4-5.0) Albumin/Globulin Ratio 0.7 (1.0-1.7) 0.6 (1.0-1.7) Laboratory Tests Test 11/17/17 13:05 12/24/16 05:00 Potassium Level 3.5 mmol/L (3.5-5.1) 3.4 mmol/L (3.5-5.1) White Blood Count 8.5 x10^3/uL (4.0-11.0) Red Blood Count 3.67 x10^6/uL (3.50-5.40) Hemoglobin 11.6 g/dL (12.0-15.5) Hematocrit 33.3 % (36.0-47.0) Mean Corpuscular Volume 91 fL (79-100) Mean Corpuscular Hemoglobin 32 pg (25-35) Mean Corpuscular Hemoglobin Concent 35 g/dL (31-37) Red Cell Distribution Width 13.0 % (11.5-14.5) Platelet Count 143 x10^3/uL (140-400) Neutrophils (%) (Auto) 85 % (31-73) Lymphocytes (%) (Auto) 9 % (24-48) Monocytes (%) (Auto) 5 % (0-9) Eosinophils (%) (Auto) 1 % (0-3) Basophils (%) (Auto) 0 % (0-3) Neutrophils # (Auto) 7.2 x10^3uL (1.8-7.7) Lymphocytes # (Auto) 0.8 x10^3/uL (1.0-4.8) Monocytes # (Auto) 0.4 x10^3/uL (0.0-1.1) Eosinophils # (Auto) 0.1 x10^3/uL (0.0-0.7) Basophils # (Auto) 0.0 x10^3/uL (0.0-0.2) Sodium Level 139 mmol/L (136-145) Chloride Level 104 mmol/L (98-107) Carbon Dioxide Level 28 mmol/L (21-32) Anion Gap 7 (6-14) Blood Urea Nitrogen 12 mg/dL (7-20) Creatinine 0.7 mg/dL (0.6-1.0) Estimated GFR (Cockcroft-Gault) 84.5 BUN/Creatinine Ratio 17 (6-20) Glucose Level 117 mg/dL (70-99) Calcium Level 8.4 mg/dL (8.5-10.1) Total Bilirubin 4.7 mg/dL (0.2-1.0) Aspartate Amino Transf (AST/SGOT) 215 U/L (15-37) Alanine Aminotransferase (ALT/SGPT) 691 U/L (14-59) Alkaline Phosphatase 381 U/L (46-116) Total Protein 6.4 g/dL (6.4-8.2) Albumin 2.4 g/dL (3.4-5.0) Albumin/Globulin Ratio 0.6 (1.0-1.7) Medications Current Medications Sodium Chloride 1,000 ml @ 100 mls/hr Q10H IV Last administered on 12/22/16 20:45; Start 12/22/16 at 20:45; Stop 12/23/16 at 08:51; Status DC Morphine Sulfate 4 mg PRN Q2HR PRN IV PAIN; Start 12/22/16 at 20:45 Ondansetron HCl (Zofran) 4 mg PRN Q8HRS PRN IV NAUSEA/VOMITING; Start at 20:45 Piperacillin Sod/ Tazobactam Sod (Zosyn Per Pharmacy) 1 each PRN DAILY PRN MC SEE COMMENTS; Start 12/22/16 at 20:45 Piperacillin Sod/ Tazobactam Sod (Zosyn) 3.375 gm Q6HRS IVP Last administered on 12/24/16 05:37; Start 12/23/16 at 00:00 Simvastatin (Zocor) 20 mg HS PO Last administered on 12/23/16 20:42; Start 12/23/16 at 21:00 Hydrochlorothiazide (Hydrodiuril) 25 mg DAILY PO ; Start 12/23/16 at 09:00; Stop 12/23/16 at 14:51; Status DC Amlodipine Besylate (Norvasc) 10 mg DAILY PO ; Start 12/23/16 at 09:00; Stop 12/23/16 at 14:51; Status DC Carvedilol (Coreg) 12.5 mg BIDWMEALS PO Last administered on 12/23/16 18:36; Start 12/23/16 at 08:00 Potassium Chloride/Dextrose/ Sod Cl 1,000 ml @ 100 mls/hr BID IV Last administered on 12/23/16 06:26; Start 12/23/16 at 09:00; Stop 12/23/16 at 09 :00; Status DC Potassium Chloride/Dextrose/ Sod Cl 1,000 ml @ 250 mls/hr CONT PRN IV SEE I/O RECORD; Start 12/23/16 at 09:00; Status Cancel Potassium Chloride 40 meq/ Sodium Chloride 520 ml @ 130 mls/hr 1X ONCE IV Last administered on 12/23/16 11:19; Start 12/23/16 at 11:00; Stop 12/23/16 at 14:59; Status DC Acetaminophen (Tylenol) 650 mg PRN Q6HRS PRN PO FEVER Last administered on 18:00; Start 12/23/16 at 15:00 Ondansetron HCl (Zofran) 4 mg PRN Q6HRS PRN IV NAUSEA/VOMITING; Start at 15:00; Status UNV Morphine Sulfate 2 mg PRN Q2HR PRN IV PAIN; Start 12/23/16 at 15:00; Status UNV Tramadol HCl (Ultram) 50 mg PRN Q6HRS PRN PO PAIN; Start 12/23/16 at 15:00 Hydralazine HCl (Apresoline Inj) 10 mg PRN Q4HRS PRN IVP ELEVATED BP, SEE COMMENTS; Start 12/23/16 at 15:00 Docusate Sodium (Colace) 100 mg PRN DAILY PRN PO CONSTIPATION; Start 12/23/16 at 15:00 Famotidine (Pepcid Vial) 20 mg QHS IVP Last administered on 12/23/16 20:42; Start 12/23/16 at 21:00 Enoxaparin Sodium (Lovenox 40mg Syringe) 40 mg DAILY SQ ; Start 12/24/16 at 09: 00 Iohexol (Omnipaque 300 Mg/ml) 100 ml STK-MED ONCE .ROUTE ; Start 12/23/16 at 16 :19; Stop 12/23/16 at 16:20; Status DC Lidocaine HCl (Lidocaine Pf 2% Vial) 5 ml STK-MED ONCE .ROUTE ; Start 12/23/16 at 16:37; Stop 12/23/16 at 16:38; Status DC Potassium Chloride/Dextrose/ Sod Cl 1,000 ml @ 50 mls/hr Q20H IV Last administered on 11/18/17at 01:53; Start 12/24/16 at 01:45 Ondansetron HCl (Zofran) 4 mg PRN Q6HRS PRN IV NAUSEA/VOMITING; Start at 07:30; Stop 12/25/16 at 07:29 Fentanyl Citrate (Fentanyl 2ml Vial) 25 mcg PRN Q5MIN PRN IV MILD PAIN; Start 12/24/16 at 07:30; Stop 12/25/16 at 07:29 Fentanyl Citrate (Fentanyl 2ml Vial) 50 mcg PRN Q5MIN PRN IV MODERATE PAIN; Start 12/24/16 at 07:30; Stop 12/25/16 at 07:29 Morphine Sulfate 1 mg PRN Q10MIN PRN IV SEVERE PAIN; Start 12/24/16 at 07:30; Stop 12/25/16 at 07:29 Ringer's Solution 1,000 ml @ 30 mls/hr Q24H IV ; Start 12/24/16 at 07:29; Stop 12/24/16 at 19:28 Lidocaine HCl (Xylocaine-Mpf 1% Vial) 2 ml 1X PRN PRN ID IV START; Start 12/24 at 07:30; Stop 12/25/16 at 07:29 Hydromorphone HCl (Dilaudid) 0.5 mg PRN Q10MIN PRN IV SEV PAIN, Second choice; Start 12/24/16 at 07:30; Stop 12/25/16 at 07:29 Prochlorperazine Edisylate (Compazine) 5 mg PACU PRN PRN IV NAUSEA, MRX1; Start 12/24/16 at 07:30; Stop 12/25/16 at 07:29 Iohexol (Omnipaque 300 Mg/ml) 50 ml STK-MED ONCE .ROUTE ; Start 12/24/16 at 10: 26; Stop 12/24/16 at 10:27; Status DC Bupivacaine HCl/ Epinephrine Bitart (Sensorcain-Mpf Epi 0.5%-[id number]) 30 ml STK -MED ONCE .ROUTE ; Start 12/24/16 at 10:26; Stop 12/24/16 at 10:27; Status DC Cellulose 1 each STK-MED ONCE .ROUTE ; Start 12/24/16 at 10:26; Stop 12/24/16 at 10:27; Status DC Heparin Sodium (Porcine) (Heparin Sodium) 10,000 unit STK-MED ONCE .ROUTE ; Start 12/24/16 at 10:26; Stop 12/24/16 at 10:27; Status DC Bisacodyl (Dulcolax Supp) 10 mg STK-MED ONCE .ROUTE ; Start 12/24/16 at 10:26; Stop 12/24/16 at 10:27; Status DC Vitals/I & O Vital Sign - Last 24 Hours 12/23/16 12/23/16 12/23/16 12/23/16 15:00 15:30 16:30 16:34 Temp 99.4 101 99.4 101.0 Pulse 73 87 84 Resp 20 B/P (MAP) 115/70 (85) 106/36 (59) Pulse Ox 98 97 98 O2 Delivery Nasal Cannula Nasal Cannula Nasal Cannula O2 Flow Rate 2.0 2.0 2.0 12/23/16 12/23/16 12/23/16 12/23/16 17:27 17:42 17:57 18:12 Temp 101.3 101.3 Pulse 85 86 89 88 Resp 18 24 24 24 B/P (MAP) 104/60 158/97 189/90 157/78 Pulse Ox 100 97 94 97 O2 Delivery Nasal Cannula Nasal Cannula Nasal Cannula O2 Flow Rate 2 2 2 12/23/16 12/23/16 12/23/16 12/23/16 18:36 18:43 18:45 19:40 Temp 99.5 99.5 Pulse 88 81 82 76 Resp 18 B/P (MAP) 157/78 101/59 (73) 101/54 (70) 108/58 (75) Pulse Ox 95 95 95 O2 Delivery Nasal Cannula Nasal Cannula Nasal Cannula O2 Flow Rate 2.0 2.0 2.0 12/23/16 12/23/16 12/23/16 12/24/16 20:00 20:11 23:16 03:35 Temp 98.9 99.3 98.9 99.3 Pulse 74 70 70 Resp 14 16 B/P (MAP) 106/58 (74) 106/64 (78) 103/59 (74) Pulse Ox 96 97 97 O2 Delivery Nasal Cannula Nasal Cannula Nasal Cannula Room Air O2 Flow Rate 2.0 2.0 2.0 12/24/16 12/24/16 07:00 08:39 Temp 99.9 99.9 Pulse 71 62 Resp 16 B/P (MAP) 99/47 (64) 110/62 Pulse Ox 95 O2 Delivery Nasal Cannula O2 Flow Rate 2.0 Intake and Output 12/23/16 12/23/16 12/24/16 15:00 23:00 07:00 Intake Total 200 ml Balance 200 ml ORIN FINE MD Dec 24, 2016 11:16
[2016-12-24] MEDS ORDERED: ROCURONIUM 50 MG/5 ML VIAL. ONE (12:06)
[2016-12-24] MEDS ORDERED: MIDAZOLAM HCL/PF 2 MG/2 ML VIAL. ONE (12:06)
[2016-12-24] MEDS ORDERED: NEOSTIGMINE 10 MG/10 ML VIAL. ONE (12:06)
[2016-12-24] MEDS ORDERED: fentaNYL PF VIAL 100 MCG/2 ML VIAL ONE ×3 (12:06→15:42)
[2016-12-24] MEDS ORDERED: GLYCOPYRROLATE 1 MG/5 ML VIAL. ONE (12:07)
[2016-12-24] MEDS ORDERED: DEXAMETHASONE SOD PHOS 20 MG/5 ML VIAL. ONE (12:07)
[2016-12-24] MEDS ORDERED: LIDOCAINE 2% PF Vial for OR 5 ML VIAL. ONE (12:07)
[2016-12-24] MEDS ORDERED: PROPOFOL 20 ML IV ONE ×2 (12:07)
[2016-12-24] MEDS ORDERED: ONDANSETRON PF 4 MG/2 ML VIAL. ONE (12:07)
[2016-12-24] MEDS ORDERED: PHENYLEPHRINE in 0.9% NACL PF 1 MG/10 ML DISP.SYRIN. IV ONE (13:54)
--- NOTE | 2016-12-24 14:57 | PDOC4 ---
OPERATIVE NOTE Date: Date: Dec 24, 2016 Pre-Op Diagnosis: Cholangitis Post-Op Diagnosis: same, cholecystitis Procedure Performed: Laparoscopic cholecystectomy with cholangiogram Surgeon: Francis Luke Anesthesia Type: GETA plus 0.5% marcaine Blood Loss: 50 Specimans Obtained: gallbladder Findings: severe cholecystitis, ratty appearance of CBD on IOC, c/w cholangitis Complications: none Operative Note: After obtaining informed consent, patient was taken to the OR, induced under GETA, and prepped in the usual fashion. [address] supraumbilical and right upper quadrant, with a 12 port placed epigastric, all under laparoscopic guidance. Abdominal cavity explored. Liver grossly normal in appearance. No evidence of other pathology. Extensive adhesions to the gallbladder. Adhesions taken down carefully, including the duodenum. Cystic artery identified and divided between clips. Critical view was obtained which demonstrated cystic duct as only structure going into the gallbladder. Cholangiogram was obtained, which was ratty in nature, c/w cholangitis. Cystic duct ligated with clips and hemolok. Gallbladder taken off fossa using cautery. It was friable and noted to contain purulent material. Gallbladder placed in bag and delivered and sent to pathology. Copious irrigation. Hemostasis obtained using cautery. 19 ADAN drain placed and secured with 3 0 nylon. Ports removed without bleeding. Fascia repaired with 0 vicryl. Skin repaired with 4 0 monocryl. Dressings applied. All counts were correct. Patient stable to PACU. No immediate complications. Wound class is 4, dirty. FRANCIS LUKE MD Dec 24, 2016 14:57
[2016-12-24] MEDS ORDERED: 0.9 % SODIUM CHLORIDE 10 ML DISP.SYRIN. IV PRN (15:00)
[2016-12-24] MEDS ORDERED: DEXTROSE 50% 25 GM / 50ML DISP.SYRIN. IV PRN (15:00)
[2016-12-24] MEDS ORDERED: ONDANSETRON PF 4 MG/2 ML VIAL. IV PRN (15:00)
[2016-12-24] MEDS ORDERED: MORPHINE SULFATE 4 MG/ML DISP.SYRIN. IV PRN (15:00)
--- NOTE | 2016-12-24 15:41 | RAD ---
CHOLANGIOGRAM INTRAOPERATIVE Clinical Indication: CHOLANGIOGRAMS IN OR WITH C-ARM. Comparison: ERCP, prior day. CT abdomen and pelvis with contrast, 2 days ago. Findings: Total fluoroscopy time 16.7 seconds. 2 fluoroscopic spot images. Contrast injected in biliary tree. There is significant irregularity of the lumen of dilated common bile duct. A filling defect similar to the choledocholith noted on CT is not seen. There is spillage of contrast into the duodenum. IMPRESSION: Intraoperative cholangiogram.
[2016-12-24] MEDS: IV RINGERS,LACTATED 1000ML 1,000 ML IV SCH (16:25)
[2016-12-24] MEDS: ENOXAPARIN 40 MG/0.4 ML SYRINGE. SQ SCH (16:27)
[2016-12-24] MEDS: ONDANSETRON PF 4 MG/2 ML VIAL. IV PRN (17:37)
[2016-12-24] MEDS: MORPHINE SULFATE 4 MG/ML DISP.SYRIN. IV PRN ×2 (17:37→21:11)
[2016-12-24] MEDS: FAMOTIDINE 20 MG/2 ML VIAL IVP SCH (21:02)
[2016-12-24] MEDS: DOCUSATE SODIUM 100 MG CAPSULE. PO SCH (21:03)
[2016-12-24] MEDS: SIMVASTATIN 20 MG TABLET PO SCH (21:03)
[2016-12-25] MEDS: IV RINGERS,LACTATED 1000ML 1,000 ML IV SCH (00:47)
[2016-12-25 02:57] VITALS: BP 133/75
[2016-12-25] MEDS: PIPERACILLIN/TAZO IV Push 3.375 GM VIAL. IVP SCH ×3 (05:11→17:29)
[2016-12-25] MEDS: MORPHINE SULFATE 4 MG/ML DISP.SYRIN. IV PRN (05:11)
[2016-12-25] MEDS: ONDANSETRON PF 4 MG/2 ML VIAL. IV PRN (05:11)
[2016-12-25 06:16] LABS: BASO % 0 % (0-3); EOS % 0 % (0-3); HEMATOCRIT 35.2 % (36.0-47.0); HEMOGLOBIN 12.2 g/dL (12.0-15.5); LYMPH # 0.6 x10^3/uL (1.0-4.8); LYMPH % 6 % (24-48); MEAN CORPUSCULAR HEMOGLOBIN 32 pg (25-35); MEAN CORPUSCULAR HGB CONC 35 g/dL (31-37); MEAN CORPUSCULAR VOLUME 91 fL (79-100); MONO % 3 % (0-9); NEUT % 91 % (31-73); PLATELET COUNT 179 x10^3/uL (140-400); RED BLOOD COUNT 3.86 x10^6/uL (3.50-5.40)
[2016-12-25 06:26] LABS: ALBUMIN 2.5 g/dL (3.4-5.0); ALBUMIN/GLOBULIN RATIO 0.6 (1.0-1.7); CALCIUM 8.8 mg/dL (8.5-10.1); CREATININE 0.8 mg/dL (0.6-1.0); GFR 72.4; POTASSIUM 4.6 mmol/L (3.5-5.1); TOTAL BILIRUBIN 3.6 mg/dL (0.2-1.0); TOTAL PROTEIN 6.5 g/dL (6.4-8.2)
[2016-12-25 07:08] VITALS: BP 137/80
[2016-12-25] MEDS: DOCUSATE SODIUM 100 MG CAPSULE. PO SCH ×2 (08:38→20:31)
[2016-12-25] MEDS: CARVEDILOL 12.5 MG TABLET. PO SCH ×2 (08:38→17:38)
[2016-12-25] MEDS: HYDROcodone/APAP 5/325MG 1 TAB TABLET PO PRN ×3 (08:39→20:32)
--- NOTE | 2016-12-25 08:54 | PDOC ---
SURGICAL PROGRESS NOTE Subjective pain better this AM no emesis Vital Signs Vital Signs Date Time Temp Pulse Resp B/P (MAP) Pulse Ox O2 Delivery O2 Flow Rate FiO2 12/25/16 08:39 Room Air 12/25/16 08:38 66 133/80 12/25/16 05:41 20 95 12/25/16 02:57 98.1 2.0 98.1 I&O Intake and Output 12/25/16 07:00 Intake Total 1105 ml Output Total 500 ml Balance 605 ml Intake Oral 180 ml IV Total 925 ml Output Urine Total 350 ml Drainage Total 140 ml Estimated Blood Loss 10 ml # Voids 2 General: Alert, Oriented X3, Cooperative, No acute distress HEENT: Other (jaundice) Abdomen: Soft, Other (drain serosang, lap sites dry) Labs Laboratory Tests Test 12/23/16 13:05 12/24/16 05:00 12/25/16 05:20 Potassium Level 3.5 mmol/L (3.5-5.1) 3.4 mmol/L (3.5-5.1) 4.6 mmol/L (3.5-5.1) White Blood Count 8.5 x10^3/uL (4.0-11.0) 11.0 x10^3/uL (4.0-11.0) Red Blood Count 3.67 x10^6/uL (3.50-5.40) 3.86 x10^6/uL (3.50-5.40) Hemoglobin 11.6 g/dL (12.0-15.5) 12.2 g/dL (12.0-15.5) Hematocrit 33.3 % (36.0-47.0) 35.2 % (36.0-47.0) Mean Corpuscular Volume 91 fL (79-100) 91 fL (79-100) Mean Corpuscular Hemoglobin 32 pg (25-35) 32 pg (25-35) Mean Corpuscular Hemoglobin Concent 35 g/dL (31-37) 35 g/dL (31-37) Red Cell Distribution Width 13.0 % (11.5-14.5) 13.0 % (11.5-14.5) Platelet Count 143 x10^3/uL (140-400) 179 x10^3/uL (140-400) Neutrophils (%) (Auto) 85 % (31-73) 91 % (31-73) Lymphocytes (%) (Auto) 9 % (24-48) 6 % (24-48) Monocytes (%) (Auto) 5 % (0-9) 3 % (0-9) Eosinophils (%) (Auto) 1 % (0-3) 0 % (0-3) Basophils (%) (Auto) 0 % (0-3) 0 % (0-3) Neutrophils # (Auto) 7.2 x10^3uL (1.8-7.7) 10.0 x10^3uL (1.8-7.7) Lymphocytes # (Auto) 0.8 x10^3/uL (1.0-4.8) 0.6 x10^3/uL (1.0-4.8) Monocytes # (Auto) 0.4 x10^3/uL (0.0-1.1) 0.4 x10^3/uL (0.0-1.1) Eosinophils # (Auto) 0.1 x10^3/uL (0.0-0.7) 0.0 x10^3/uL (0.0-0.7) Basophils # (Auto) 0.0 x10^3/uL (0.0-0.2) 0.0 x10^3/uL (0.0-0.2) Sodium Level 139 mmol/L (136-145) 139 mmol/L (136-145) Chloride Level 104 mmol/L (98-107) 104 mmol/L (98-107) Carbon Dioxide Level 28 mmol/L (21-32) 26 mmol/L (21-32) Anion Gap 7 (6-14) 9 (6-14) Blood Urea Nitrogen 12 mg/dL (7-20) 9 mg/dL (7-20) Creatinine 0.7 mg/dL (0.6-1.0) 0.8 mg/dL (0.6-1.0) Estimated GFR (Cockcroft-Gault) 84.5 72.4 BUN/Creatinine Ratio 17 (6-20) 11 (6-20) Glucose Level 117 mg/dL (70-99) 157 mg/dL (70-99) Calcium Level 8.4 mg/dL (8.5-10.1) 8.8 mg/dL (8.5-10.1) Total Bilirubin 4.7 mg/dL (0.2-1.0) 3.6 mg/dL (0.2-1.0) Aspartate Amino Transf (AST/SGOT) 215 U/L (15-37) 614 U/L (15-37) Alanine Aminotransferase (ALT/SGPT) 691 U/L (14-59) 892 U/L (14-59) Alkaline Phosphatase 381 U/L (46-116) 652 U/L (46-116) Total Protein 6.4 g/dL (6.4-8.2) 6.5 g/dL (6.4-8.2) Albumin 2.4 g/dL (3.4-5.0) 2.5 g/dL (3.4-5.0) Albumin/Globulin Ratio 0.6 (1.0-1.7) 0.6 (1.0-1.7) Direct Bilirubin 3.1 mg/dL (0.0-0.2) Laboratory Tests Test 12/25/16 05:20 White Blood Count 11.0 x10^3/uL (4.0-11.0) Red Blood Count 3.86 x10^6/uL (3.50-5.40) Hemoglobin 12.2 g/dL (12.0-15.5) Hematocrit 35.2 % (36.0-47.0) Mean Corpuscular Volume 91 fL (79-100) Mean Corpuscular Hemoglobin 32 pg (25-35) Mean Corpuscular Hemoglobin Concent 35 g/dL (31-37) Red Cell Distribution Width 13.0 % (11.5-14.5) Platelet Count 179 x10^3/uL (140-400) Neutrophils (%) (Auto) 91 % (31-73) Lymphocytes (%) (Auto) 6 % (24-48) Monocytes (%) (Auto) 3 % (0-9) Eosinophils (%) (Auto) 0 % (0-3) Basophils (%) (Auto) 0 % (0-3) Neutrophils # (Auto) 10.0 x10^3uL (1.8-7.7) Lymphocytes # (Auto) 0.6 x10^3/uL (1.0-4.8) Monocytes # (Auto) 0.4 x10^3/uL (0.0-1.1) Eosinophils # (Auto) 0.0 x10^3/uL (0.0-0.7) Basophils # (Auto) 0.0 x10^3/uL (0.0-0.2) Sodium Level 139 mmol/L (136-145) Potassium Level 4.6 mmol/L (3.5-5.1) Chloride Level 104 mmol/L (98-107) Carbon Dioxide Level 26 mmol/L (21-32) Anion Gap 9 (6-14) Blood Urea Nitrogen 9 mg/dL (7-20) Creatinine 0.8 mg/dL (0.6-1.0) Estimated GFR (Cockcroft-Gault) 72.4 BUN/Creatinine Ratio 11 (6-20) Glucose Level 157 mg/dL (70-99) Calcium Level 8.8 mg/dL (8.5-10.1) Total Bilirubin 3.6 mg/dL (0.2-1.0) Direct Bilirubin 3.1 mg/dL (0.0-0.2) Aspartate Amino Transf (AST/SGOT) 614 U/L (15-37) Alanine Aminotransferase (ALT/SGPT) 892 U/L (14-59) Alkaline Phosphatase 652 U/L (46-116) Total Protein 6.5 g/dL (6.4-8.2) Albumin 2.5 g/dL (3.4-5.0) Albumin/Globulin Ratio 0.6 (1.0-1.7) Assessment/Plan s/p lap chyna severe cholecystitis, cholangitis continue abx, drain follow labs Problems: JEROME PACHECO [employer] Dec 25, 2016 08:54
[2016-12-25 11:00] VITALS: BP 133/71
[2016-12-25] MEDS ORDERED: ROCURONIUM 50 MG/5 ML VIAL. ONE (12:00)
[2016-12-25] MEDS ORDERED: PROPOFOL 10 MG/ML (20ML) VIAL. IV ONE (12:00)
--- NOTE | 2016-12-25 13:30 | PDOC ---
G I PROGRESS NOTE Reason for Follow-up Jaundice/abd pain Subjective Feeling better s/p lap chyna Physical Exam Lungs clear CV S1 S2 ABD +BS, soft, incisions intact Review of Relevant I have reviewed the following items les (where applicable) has been applied. Labs Laboratory Tests Test 12/24/16 05:00 12/25/16 05:20 White Blood Count 8.5 x10^3/uL (4.0-11.0) 11.0 x10^3/uL (4.0-11.0) Red Blood Count 3.67 x10^6/uL (3.50-5.40) 3.86 x10^6/uL (3.50-5.40) Hemoglobin 11.6 g/dL (12.0-15.5) 12.2 g/dL (12.0-15.5) Hematocrit 33.3 % (36.0-47.0) 35.2 % (36.0-47.0) Mean Corpuscular Volume 91 fL (79-100) 91 fL (79-100) Mean Corpuscular Hemoglobin 32 pg (25-35) 32 pg (25-35) Mean Corpuscular Hemoglobin Concent 35 g/dL (31-37) 35 g/dL (31-37) Red Cell Distribution Width 13.0 % (11.5-14.5) 13.0 % (11.5-14.5) Platelet Count 143 x10^3/uL (140-400) 179 x10^3/uL (140-400) Neutrophils (%) (Auto) 85 % (31-73) 91 % (31-73) Lymphocytes (%) (Auto) 9 % (24-48) 6 % (24-48) Monocytes (%) (Auto) 5 % (0-9) 3 % (0-9) Eosinophils (%) (Auto) 1 % (0-3) 0 % (0-3) Basophils (%) (Auto) 0 % (0-3) 0 % (0-3) Neutrophils # (Auto) 7.2 x10^3uL (1.8-7.7) 10.0 x10^3uL (1.8-7.7) Lymphocytes # (Auto) 0.8 x10^3/uL (1.0-4.8) 0.6 x10^3/uL (1.0-4.8) Monocytes # (Auto) 0.4 x10^3/uL (0.0-1.1) 0.4 x10^3/uL (0.0-1.1) Eosinophils # (Auto) 0.1 x10^3/uL (0.0-0.7) 0.0 x10^3/uL (0.0-0.7) Basophils # (Auto) 0.0 x10^3/uL (0.0-0.2) 0.0 x10^3/uL (0.0-0.2) Sodium Level 139 mmol/L (136-145) 139 mmol/L (136-145) Potassium Level 3.4 mmol/L (3.5-5.1) 4.6 mmol/L (3.5-5.1) Chloride Level 104 mmol/L (98-107) 104 mmol/L (98-107) Carbon Dioxide Level 28 mmol/L (21-32) 26 mmol/L (21-32) Anion Gap 7 (6-14) 9 (6-14) Blood Urea Nitrogen 12 mg/dL (7-20) 9 mg/dL (7-20) Creatinine 0.7 mg/dL (0.6-1.0) 0.8 mg/dL (0.6-1.0) Estimated GFR (Cockcroft-Gault) 84.5 72.4 BUN/Creatinine Ratio 17 (6-20) 11 (6-20) Glucose Level 117 mg/dL (70-99) 157 mg/dL (70-99) Calcium Level 8.4 mg/dL (8.5-10.1) 8.8 mg/dL (8.5-10.1) Total Bilirubin 4.7 mg/dL (0.2-1.0) 3.6 mg/dL (0.2-1.0) Aspartate Amino Transf (AST/SGOT) 215 U/L (15-37) 614 U/L (15-37) Alanine Aminotransferase (ALT/SGPT) 691 U/L (14-59) 892 U/L (14-59) Alkaline Phosphatase 381 U/L (46-116) 652 U/L (46-116) Total Protein 6.4 g/dL (6.4-8.2) 6.5 g/dL (6.4-8.2) Albumin 2.4 g/dL (3.4-5.0) 2.5 g/dL (3.4-5.0) Albumin/Globulin Ratio 0.6 (1.0-1.7) 0.6 (1.0-1.7) Direct Bilirubin 3.1 mg/dL (0.0-0.2) Laboratory Tests Test 12/25/16 05:20 White Blood Count 11.0 x10^3/uL (4.0-11.0) Red Blood Count 3.86 x10^6/uL (3.50-5.40) Hemoglobin 12.2 g/dL (12.0-15.5) Hematocrit 35.2 % (36.0-47.0) Mean Corpuscular Volume 91 fL (79-100) Mean Corpuscular Hemoglobin 32 pg (25-35) Mean Corpuscular Hemoglobin Concent 35 g/dL (31-37) Red Cell Distribution Width 13.0 % (11.5-14.5) Platelet Count 179 x10^3/uL (140-400) Neutrophils (%) (Auto) 91 % (31-73) Lymphocytes (%) (Auto) 6 % (24-48) Monocytes (%) (Auto) 3 % (0-9) Eosinophils (%) (Auto) 0 % (0-3) Basophils (%) (Auto) 0 % (0-3) Neutrophils # (Auto) 10.0 x10^3uL (1.8-7.7) Lymphocytes # (Auto) 0.6 x10^3/uL (1.0-4.8) Monocytes # (Auto) 0.4 x10^3/uL (0.0-1.1) Eosinophils # (Auto) 0.0 x10^3/uL (0.0-0.7) Basophils # (Auto) 0.0 x10^3/uL (0.0-0.2) Sodium Level 139 mmol/L (136-145) Potassium Level 4.6 mmol/L (3.5-5.1) Chloride Level 104 mmol/L (98-107) Carbon Dioxide Level 26 mmol/L (21-32) Anion Gap 9 (6-14) Blood Urea Nitrogen 9 mg/dL (7-20) Creatinine 0.8 mg/dL (0.6-1.0) Estimated GFR (Cockcroft-Gault) 72.4 BUN/Creatinine Ratio 11 (6-20) Glucose Level 157 mg/dL (70-99) Calcium Level 8.8 mg/dL (8.5-10.1) Total Bilirubin 3.6 mg/dL (0.2-1.0) Direct Bilirubin 3.1 mg/dL (0.0-0.2) Aspartate Amino Transf (AST/SGOT) 614 U/L (15-37) Alanine Aminotransferase (ALT/SGPT) 892 U/L (14-59) Alkaline Phosphatase 652 U/L (46-116) Total Protein 6.5 g/dL (6.4-8.2) Albumin 2.5 g/dL (3.4-5.0) Albumin/Globulin Ratio 0.6 (1.0-1.7) Medications Current Medications Sodium Chloride 1,000 ml @ 100 mls/hr Q10H IV Last administered on 12/22/16 20:45; Start 12/22/16 at 20:45; Stop 12/23/16 at 08:51; Status DC Morphine Sulfate 4 mg PRN Q2HR PRN IV PAIN Last administered on 12/25/16 05: 11; Start 12/22/16 at 20:45 Ondansetron HCl (Zofran) 4 mg PRN Q8HRS PRN IV NAUSEA/VOMITING; Start at 20:45 Piperacillin Sod/ Tazobactam Sod (Zosyn Per Pharmacy) 1 each PRN DAILY PRN MC SEE COMMENTS; Start 12/22/16 at 20:45 Piperacillin Sod/ Tazobactam Sod (Zosyn) 3.375 gm Q6HRS IVP Last administered on 12/25/16 11:23; Start 12/23/16 at 00:00 Simvastatin (Zocor) 20 mg HS PO Last administered on 12/24/16 21:03; Start 12/23/16 at 21:00 Hydrochlorothiazide (Hydrodiuril) 25 mg DAILY PO ; Start 12/23/16 at 09:00; Stop 12/23/16 at 14:51; Status DC Amlodipine Besylate (Norvasc) 10 mg DAILY PO ; Start 12/23/16 at 09:00; Stop 12/23/16 at 14:51; Status DC Carvedilol (Coreg) 12.5 mg BIDWMEALS PO Last administered on 12/25/16 08:38; Start 12/23/16 at 08:00 Potassium Chloride/Dextrose/ Sod Cl 1,000 ml @ 100 mls/hr BID IV Last administered on 12/23/16 06:26; Start 12/23/16 at 09:00; Stop 12/23/16 at 09 :00; Status DC Potassium Chloride/Dextrose/ Sod Cl 1,000 ml @ 250 mls/hr CONT PRN IV SEE I/O RECORD; Start 12/23/16 at 09:00; Status Cancel Potassium Chloride 40 meq/ Sodium Chloride 520 ml @ 130 mls/hr 1X ONCE IV Last administered on 12/23/16 11:19; Start 12/23/16 at 11:00; Stop 12/23/16 at 14:59; Status DC Acetaminophen (Tylenol) 650 mg PRN Q6HRS PRN PO FEVER Last administered on 18:00; Start 12/23/16 at 15:00 Ondansetron HCl (Zofran) 4 mg PRN Q6HRS PRN IV NAUSEA/VOMITING; Start at 15:00; Status UNV Morphine Sulfate 2 mg PRN Q2HR PRN IV PAIN; Start 12/23/16 at 15:00; Status UNV Tramadol HCl (Ultram) 50 mg PRN Q6HRS PRN PO PAIN; Start 12/23/16 at 15:00 Hydralazine HCl (Apresoline Inj) 10 mg PRN Q4HRS PRN IVP ELEVATED BP, SEE COMMENTS; Start 12/23/16 at 15:00 Docusate Sodium (Colace) 100 mg PRN DAILY PRN PO CONSTIPATION; Start 12/23/16 at 15:00 Famotidine (Pepcid Vial) 20 mg QHS IVP Last administered on 12/24/16 21:02; Start 12/23/16 at 21:00 Enoxaparin Sodium (Lovenox 40mg Syringe) 40 mg DAILY SQ ; Start 12/24/16 at 09: 00; Stop 12/24/16 at 14:57; Status DC Iohexol (Omnipaque 300 Mg/ml) 100 ml STK-MED ONCE .ROUTE ; Start 12/23/16 at 16 :19; Stop 12/23/16 at 16:20; Status DC Lidocaine HCl (Lidocaine Pf 2% Vial) 5 ml STK-MED ONCE .ROUTE ; Start 12/23/16 at 16:37; Stop 12/23/16 at 16:38; Status DC Potassium Chloride/Dextrose/ Sod Cl 1,000 ml @ 70 mls/hr [id number] IV Last administered on 12/24/16 23:52; Start 12/24/16 at 01:45 Ondansetron HCl (Zofran) 4 mg PRN Q6HRS PRN IV NAUSEA/VOMITING Last administered on 12/25/16 05:11; Start 12/24/16 at 07:30; Stop 12/25/16 at 07 :29; Status DC Fentanyl Citrate (Fentanyl 2ml Vial) 25 mcg PRN Q5MIN PRN IV MILD PAIN Last administered on 12/24/16 15:44; Start 12/24/16 at 07:30; Stop 12/25/16 at 04 :42; Status DC Fentanyl Citrate (Fentanyl 2ml Vial) 50 mcg PRN Q5MIN PRN IV MODERATE PAIN Last administered on 12/24/16 15:56; Start 12/24/16 at 07:30; Stop 12/25/16 at 04:42; Status DC Morphine Sulfate 1 mg PRN Q10MIN PRN IV SEVERE PAIN; Start 12/24/16 at 07:30; Stop 12/25/16 at 04:42; Status DC Ringer's Solution 1,000 ml @ 30 mls/hr Q24H IV Last administered on 11:30; Start 12/24/16 at 07:29; Stop 12/24/16 at 19:28; Status DC Lidocaine HCl (Xylocaine-Mpf 1% Vial) 2 ml 1X PRN PRN ID IV START; Start 12/24 at 07:30; Stop 12/25/16 at 04:42; Status DC Hydromorphone HCl (Dilaudid) 0.5 mg PRN Q10MIN PRN IV SEV PAIN, Second choice; Start 12/24/16 at 07:30; Stop 12/25/16 at 04:42; Status DC Prochlorperazine Edisylate (Compazine) 5 mg PACU PRN PRN IV NAUSEA, MRX1; Start 12/24/16 at 07:30; Stop 12/25/16 at 04:42; Status DC Iohexol (Omnipaque 300 Mg/ml) 50 ml STK-MED ONCE .ROUTE Last administered on 14:01; Start 12/24/16 at 10:26; Stop 12/24/16 at 10:27; Status DC Bupivacaine HCl/ Epinephrine Bitart (Sensorcain-Mpf Epi 0.5%-1:[id number]) 30 ml STK -MED ONCE .ROUTE Last administered on 12/24/16 14:01; Start 12/24/16 at 10: 26; Stop 12/24/16 at 10:27; Status DC Cellulose 1 each STK-MED ONCE .ROUTE ; Start 12/24/16 at 10:26; Stop 12/24/16 at 10:27; Status DC Heparin Sodium (Porcine) (Heparin Sodium) 10,000 unit STK-MED ONCE .ROUTE Last administered on 12/24/16 14:01; Start 12/24/16 at 10:26; Stop 12/24/16 at 10 :27; Status DC Bisacodyl (Dulcolax Supp) 10 mg STK-MED ONCE .ROUTE Last administered on 14:01; Start 12/24/16 at 10:26; Stop 12/24/16 at 10:27; Status DC Neostigmine Methylsulfate (Bloxiverz) 10 mg STK-MED ONCE .ROUTE ; Start at 12:06; Stop 12/24/16 at 12:07; Status DC Rocuronium [place] (Zemuron) 50 mg STK-MED ONCE .ROUTE ; Start 12/24/16 at 12: 06; Stop 12/24/16 at 12:07; Status DC Fentanyl Citrate (Fentanyl 2ml Vial) 100 mcg STK-MED ONCE .ROUTE ; Start at 12:06; Stop 12/24/16 at 12:07; Status DC Midazolam HCl (Versed) 2 mg STK-MED ONCE .ROUTE ; Start 12/24/16 at 12:06; Stop 12/24/16 at 12:07; Status DC Glycopyrrolate (Robinul) 1 mg STK-MED ONCE .ROUTE ; Start 12/24/16 at 12:07; Stop 12/24/16 at 12:08; Status DC Propofol 20 ml @ As Directed STK-MED ONCE IV ; Start 12/24/16 at 12:07; Stop 12/24/16 at 12:08; Status DC Propofol 20 ml @ As Directed STK-MED ONCE IV ; Start 12/24/16 at 12:07; Stop 12/24/16 at 12:08; Status DC Lidocaine HCl (Lidocaine Pf 2% Vial) 5 ml STK-MED ONCE .ROUTE ; Start 12/24/16 at 12:07; Stop 12/24/16 at 12:08; Status DC Ondansetron HCl (Zofran) 4 mg STK-MED ONCE .ROUTE ; Start 12/24/16 at 12:07; Stop 12/24/16 at 12:08; Status DC Dexamethasone Sodium Phosphate (Decadron) 20 mg STK-MED ONCE .ROUTE ; Start at 12:07; Stop 12/24/16 at 12:08; Status DC Phenylephrine HCl 1 mg STK-MED ONCE IV ; Start 12/24/16 at 13:54; Stop at 13:55; Status DC Fentanyl Citrate (Fentanyl 2ml Vial) 100 mcg STK-MED ONCE .ROUTE ; Start at 14:11; Stop 12/24/16 at 14:12; Status DC Enoxaparin Sodium (Lovenox 40mg Syringe) 40 mg Q24H SQ ; Start 12/24/16 at 18: 00 Sodium Chloride (Normal Saline Flush) 3 ml QSHIFT PRN IV AFTER MEDS AND BLOOD DRAWS; Start 12/24/16 at 15:00 Ringer's Solution 1,000 ml @ 100 mls/hr Q10H IV ; Start 12/24/16 at 14:47; Stop 12/25/16 at 04:42; Status DC Dextrose (Dextrose 50%-Water Syringe) 12.5 gm PRN Q15MIN PRN IV SEE COMMENTS; Start 12/24/16 at 15:00 Acetaminophen/ Hydrocodone Bitart (Lortab 5/325) 1 tab PRN Q4HRS PRN PO MILD PAIN Last administered on 12/25/16t 08:39; Start 12/24/16 at 15:00 Morphine Sulfate 1 mg PRN Q1HR PRN IV PAIN; Start 12/24/16 at 15:00 Docusate Sodium (Colace) 100 mg BID PO Last administered on 12/25/16t 08:38; Start 12/24/16 at 21:00 Ondansetron HCl (Zofran) 4 mg PRN Q6HRS PRN IV NAUESA, 1ST CHOICE; Start 12/24 at 15:00 Fentanyl Citrate (Fentanyl 2ml Vial) 100 mcg STK-MED ONCE .ROUTE ; Start at 15:42; Stop 12/24/16 at 15:43; Status DC Vitals/I & O Vital Sign - Last 24 Hours 12/24/16 12/24/16 12/24/16 12/24/16 13:59 15:00 15:14 15:29 Temp 101.5 99.7 101.5 99.7 Pulse 72 64 65 Resp 16 20 22 B/P (MAP) 111/57 101/55 111/56 Pulse Ox 99 99 95 O2 Delivery Simple Mask Mask Simple Mask Nasal Cannula O2 Flow Rate 6 6 6 2 12/24/16 12/24/16 12/24/16 12/24/16 15:44 15:44 15:56 15:59 Temp 99.7 99.7 99.7 99.7 Pulse 64 66 Resp 21 21 18 20 B/P (MAP) 112/58 98/55 Pulse Ox 95 95 95 94 O2 Delivery Nasal Cannula Nasal Cannula Nasal Cannula Nasal Cannula O2 Flow Rate 2.0 2.0 2.0 2.0 12/24/16 12/24/16 12/24/16 12/24/16 16:15 16:25 16:25 16:30 Temp 98.1 98.6 98.1 98.6 Pulse 65 67 Resp 16 16 B/P (MAP) 118/62 (80) 115/60 (78) Pulse Ox 94 92 O2 Delivery Nasal Cannula Nasal Cannula Nasal Cannula Nasal Cannula O2 Flow Rate 2.0 2.0 12/24/16 12/24/16 12/24/16 12/24/16 16:45 17:00 17:30 17:37 Temp 97.7 98.8 98.7 97.7 98.8 98.7 Pulse 68 75 74 Resp 16 16 16 B/P (MAP) 126/68 (87) 123/64 (83) 124/61 (82) Pulse Ox 92 93 93 92 O2 Delivery Nasal Cannula Nasal Cannula Nasal Cannula Nasal Cannula O2 Flow Rate 2.0 2.0 2.0 2.0 12/24/16 12/24/16 12/24/16 12/24/16 18:00 19:15 20:00 21:11 Temp 98.7 98.2 98.7 98.2 Pulse 74 72 Resp 16 18 20 B/P (MAP) 125/63 (83) 125/65 (85) Pulse Ox 93 94 95 O2 Delivery Nasal Cannula Nasal Cannula Nasal Cannula Room Air O2 Flow Rate 2.0 2.0 2.0 2.0 12/24/16 12/24/16 12/25/16 12/25/16 21:41 23:10 02:57 05:11 Temp 98.5 98.1 98.5 98.1 Pulse 71 62 Resp 18 18 20 B/P (MAP) 121/67 (85) 133/75 (94) Pulse Ox 93 95 95 O2 Delivery Nasal Cannula Nasal Cannula Room Air O2 Flow Rate 2.0 2.0 2.0 12/25/16 12/25/16 12/25/16 12/25/16 05:41 07:08 08:30 08:38 Temp 98.5 98.5 Pulse 66 66 Resp 20 16 B/P (MAP) 137/80 (99) 133/80 Pulse Ox 95 92 O2 Delivery Room Air Room Air Room Air 12/25/16 12/25/16 12/25/16 08:39 11:00 11:23 Temp 98.3 98.3 Pulse 68 Resp 16 B/P (MAP) 133/71 (91) Pulse Ox 93 O2 Delivery Room Air Nasal Cannula Nasal Cannula O2 Flow Rate 1.0 Intake and Output 12/24/16 12/24/16 12/25/16 15:00 23:00 07:00 Intake Total 925 ml 180 ml Output Total 210 ml 80 ml 210 ml Balance -210 ml 845 ml -30 ml Problem List Obstructive jaundice- S/P chyna/ERCP with stone extractions, LFTS slowly normalizing, CPM PROPMATT ROQUE MD Dec 25, 2016 13:29
--- NOTE | 2016-12-25 14:11 | PDOC ---
PROGRESS NOTES Chief Complaint Chief Complaint acute abd pain, acute cholecystitis with choledochalithiasis seen on CT scan at outside hospital acute transaminitis, AST 614, ALT 892 , Bili 3.6 sepsis on admit, possible cholangitis HTN hypoKalemia History of Present Illness History of Present Illness zosyn cover for possible cholangitis ERCP done POD #1 chyna pain control is good, cont only coreg for HTN dvt, gi ppx follow labs, liver enzymes still a bit high replete k ROS: no fever, chills, sob, chest pain Vitals Vitals Vital Signs Date Time Temp Pulse Resp B/P (MAP) Pulse Ox O2 Delivery O2 Flow Rate FiO2 12/25/16 11:23 Nasal Cannula 12/25/16 11:00 98.3 68 16 133/71 (91) 93 1.0 98.3 Physical Exam General: Alert, Oriented X3, Cooperative, No acute distress Heart: Regular rate, Normal S1, Normal S2, No murmurs Lungs: Clear Abdomen: Soft, Other (drain serosang, lap sites dry) Extremities: No clubbing, No cyanosis Skin: No rashes, No breakdown Labs LABS Laboratory Tests Test 12/25/16 05:20 White Blood Count 11.0 x10^3/uL (4.0-11.0) Red Blood Count 3.86 x10^6/uL (3.50-5.40) Hemoglobin 12.2 g/dL (12.0-15.5) Hematocrit 35.2 % (36.0-47.0) Mean Corpuscular Volume 91 fL (79-100) Mean Corpuscular Hemoglobin 32 pg (25-35) Mean Corpuscular Hemoglobin Concent 35 g/dL (31-37) Red Cell Distribution Width 13.0 % (11.5-14.5) Platelet Count 179 x10^3/uL (140-400) Neutrophils (%) (Auto) 91 % (31-73) Lymphocytes (%) (Auto) 6 % (24-48) Monocytes (%) (Auto) 3 % (0-9) Eosinophils (%) (Auto) 0 % (0-3) Basophils (%) (Auto) 0 % (0-3) Neutrophils # (Auto) 10.0 x10^3uL (1.8-7.7) Lymphocytes # (Auto) 0.6 x10^3/uL (1.0-4.8) Monocytes # (Auto) 0.4 x10^3/uL (0.0-1.1) Eosinophils # (Auto) 0.0 x10^3/uL (0.0-0.7) Basophils # (Auto) 0.0 x10^3/uL (0.0-0.2) Sodium Level 139 mmol/L (136-145) Potassium Level 4.6 mmol/L (3.5-5.1) Chloride Level 104 mmol/L (98-107) Carbon Dioxide Level 26 mmol/L (21-32) Anion Gap 9 (6-14) Blood Urea Nitrogen 9 mg/dL (7-20) Creatinine 0.8 mg/dL (0.6-1.0) Estimated GFR (Cockcroft-Gault) 72.4 BUN/Creatinine Ratio 11 (6-20) Glucose Level 157 mg/dL (70-99) Calcium Level 8.8 mg/dL (8.5-10.1) Total Bilirubin 3.6 mg/dL (0.2-1.0) Direct Bilirubin 3.1 mg/dL (0.0-0.2) Aspartate Amino Transf (AST/SGOT) 614 U/L (15-37) Alanine Aminotransferase (ALT/SGPT) 892 U/L (14-59) Alkaline Phosphatase 652 U/L (46-116) Total Protein 6.5 g/dL (6.4-8.2) Albumin 2.5 g/dL (3.4-5.0) Albumin/Globulin Ratio 0.6 (1.0-1.7) Review of Systems Review of Systems no change Assessment and Plan Assessmemt and Plan cont abx, gen surg and GI following, Problems: Comment Review of Relevant I have reviewed the following items les (where applicable) has been applied. Labs Laboratory Tests Test 12/24/16 05:00 12/25/16 05:20 White Blood Count 8.5 x10^3/uL (4.0-11.0) 11.0 x10^3/uL (4.0-11.0) Red Blood Count 3.67 x10^6/uL (3.50-5.40) 3.86 x10^6/uL (3.50-5.40) Hemoglobin 11.6 g/dL (12.0-15.5) 12.2 g/dL (12.0-15.5) Hematocrit 33.3 % (36.0-47.0) 35.2 % (36.0-47.0) Mean Corpuscular Volume 91 fL (79-100) 91 fL (79-100) Mean Corpuscular Hemoglobin 32 pg (25-35) 32 pg (25-35) Mean Corpuscular Hemoglobin Concent 35 g/dL (31-37) 35 g/dL (31-37) Red Cell Distribution Width 13.0 % (11.5-14.5) 13.0 % (11.5-14.5) Platelet Count 143 x10^3/uL (140-400) 179 x10^3/uL (140-400) Neutrophils (%) (Auto) 85 % (31-73) 91 % (31-73) Lymphocytes (%) (Auto) 9 % (24-48) 6 % (24-48) Monocytes (%) (Auto) 5 % (0-9) 3 % (0-9) Eosinophils (%) (Auto) 1 % (0-3) 0 % (0-3) Basophils (%) (Auto) 0 % (0-3) 0 % (0-3) Neutrophils # (Auto) 7.2 x10^3uL (1.8-7.7) 10.0 x10^3uL (1.8-7.7) Lymphocytes # (Auto) 0.8 x10^3/uL (1.0-4.8) 0.6 x10^3/uL (1.0-4.8) Monocytes # (Auto) 0.4 x10^3/uL (0.0-1.1) 0.4 x10^3/uL (0.0-1.1) Eosinophils # (Auto) 0.1 x10^3/uL (0.0-0.7) 0.0 x10^3/uL (0.0-0.7) Basophils # (Auto) 0.0 x10^3/uL (0.0-0.2) 0.0 x10^3/uL (0.0-0.2) Sodium Level 139 mmol/L (136-145) 139 mmol/L (136-145) Potassium Level 3.4 mmol/L (3.5-5.1) 4.6 mmol/L (3.5-5.1) Chloride Level 104 mmol/L (98-107) 104 mmol/L (98-107) Carbon Dioxide Level 28 mmol/L (21-32) 26 mmol/L (21-32) Anion Gap 7 (6-14) 9 (6-14) Blood Urea Nitrogen 12 mg/dL (7-20) 9 mg/dL (7-20) Creatinine 0.7 mg/dL (0.6-1.0) 0.8 mg/dL (0.6-1.0) Estimated GFR (Cockcroft-Gault) 84.5 72.4 BUN/Creatinine Ratio 17 (6-20) 11 (6-20) Glucose Level 117 mg/dL (70-99) 157 mg/dL (70-99) Calcium Level 8.4 mg/dL (8.5-10.1) 8.8 mg/dL (8.5-10.1) Total Bilirubin 4.7 mg/dL (0.2-1.0) 3.6 mg/dL (0.2-1.0) Aspartate Amino Transf (AST/SGOT) 215 U/L (15-37) 614 U/L (15-37) Alanine Aminotransferase (ALT/SGPT) 691 U/L (14-59) 892 U/L (14-59) Alkaline Phosphatase 381 U/L (46-116) 652 U/L (46-116) Total Protein 6.4 g/dL (6.4-8.2) 6.5 g/dL (6.4-8.2) Albumin 2.4 g/dL (3.4-5.0) 2.5 g/dL (3.4-5.0) Albumin/Globulin Ratio 0.6 (1.0-1.7) 0.6 (1.0-1.7) Direct Bilirubin 3.1 mg/dL (0.0-0.2) Laboratory Tests Test 12/25/16 05:20 White Blood Count 11.0 x10^3/uL (4.0-11.0) Red Blood Count 3.86 x10^6/uL (3.50-5.40) Hemoglobin 12.2 g/dL (12.0-15.5) Hematocrit 35.2 % (36.0-47.0) Mean Corpuscular Volume 91 fL (79-100) Mean Corpuscular Hemoglobin 32 pg (25-35) Mean Corpuscular Hemoglobin Concent 35 g/dL (31-37) Red Cell Distribution Width 13.0 % (11.5-14.5) Platelet Count 179 x10^3/uL (140-400) Neutrophils (%) (Auto) 91 % (31-73) Lymphocytes (%) (Auto) 6 % (24-48) Monocytes (%) (Auto) 3 % (0-9) Eosinophils (%) (Auto) 0 % (0-3) Basophils (%) (Auto) 0 % (0-3) Neutrophils # (Auto) 10.0 x10^3uL (1.8-7.7) Lymphocytes # (Auto) 0.6 x10^3/uL (1.0-4.8) Monocytes # (Auto) 0.4 x10^3/uL (0.0-1.1) Eosinophils # (Auto) 0.0 x10^3/uL (0.0-0.7) Basophils # (Auto) 0.0 x10^3/uL (0.0-0.2) Sodium Level 139 mmol/L (136-145) Potassium Level 4.6 mmol/L (3.5-5.1) Chloride Level 104 mmol/L (98-107) Carbon Dioxide Level 26 mmol/L (21-32) Anion Gap 9 (6-14) Blood Urea Nitrogen 9 mg/dL (7-20) Creatinine 0.8 mg/dL (0.6-1.0) Estimated GFR (Cockcroft-Gault) 72.4 BUN/Creatinine Ratio 11 (6-20) Glucose Level 157 mg/dL (70-99) Calcium Level 8.8 mg/dL (8.5-10.1) Total Bilirubin 3.6 mg/dL (0.2-1.0) Direct Bilirubin 3.1 mg/dL (0.0-0.2) Aspartate Amino Transf (AST/SGOT) 614 U/L (15-37) Alanine Aminotransferase (ALT/SGPT) 892 U/L (14-59) Alkaline Phosphatase 652 U/L (46-116) Total Protein 6.5 g/dL (6.4-8.2) Albumin 2.5 g/dL (3.4-5.0) Albumin/Globulin Ratio 0.6 (1.0-1.7) Medications Current Medications Sodium Chloride 1,000 ml @ 100 mls/hr Q10H IV Last administered on 12/22/16 20:45; Start 12/22/16 at 20:45; Stop 12/23/16 at 08:51; Status DC Morphine Sulfate 4 mg PRN Q2HR PRN IV PAIN Last administered on 12/25/16 05: 11; Start 12/22/16 at 20:45 Ondansetron HCl (Zofran) 4 mg PRN Q8HRS PRN IV NAUSEA/VOMITING; Start at 20:45 Piperacillin Sod/ Tazobactam Sod (Zosyn Per Pharmacy) 1 each PRN DAILY PRN MC SEE COMMENTS; Start 12/22/16 at 20:45 Piperacillin Sod/ Tazobactam Sod (Zosyn) 3.375 gm Q6HRS IVP Last administered on 12/25/16 11:23; Start 12/23/16 at 00:00 Simvastatin (Zocor) 20 mg HS PO Last administered on 12/24/16 21:03; Start 12/23/16 at 21:00 Hydrochlorothiazide (Hydrodiuril) 25 mg DAILY PO ; Start 12/23/16 at 09:00; Stop 12/23/16 at 14:51; Status DC Amlodipine Besylate (Norvasc) 10 mg DAILY PO ; Start 12/23/16 at 09:00; Stop 12/23/16 at 14:51; Status DC Carvedilol (Coreg) 12.5 mg BIDWMEALS PO Last administered on 12/25/16 08:38; Start 12/23/16 at 08:00 Potassium Chloride/Dextrose/ Sod Cl 1,000 ml @ 100 mls/hr BID IV Last administered on 12/23/16 06:26; Start 12/23/16 at 09:00; Stop 12/23/16 at 09 :00; Status DC Potassium Chloride/Dextrose/ Sod Cl 1,000 ml @ 250 mls/hr CONT PRN IV SEE I/O RECORD; Start 12/23/16 at 09:00; Status Cancel Potassium Chloride 40 meq/ Sodium Chloride 520 ml @ 130 mls/hr 1X ONCE IV Last administered on 12/23/16 11:19; Start 12/23/16 at 11:00; Stop 12/23/16 at 14:59; Status DC Acetaminophen (Tylenol) 650 mg PRN Q6HRS PRN PO FEVER Last administered on 18:00; Start 12/23/16 at 15:00 Ondansetron HCl (Zofran) 4 mg PRN Q6HRS PRN IV NAUSEA/VOMITING; Start at 15:00; Status UNV Morphine Sulfate 2 mg PRN Q2HR PRN IV PAIN; Start 12/23/16 at 15:00; Status UNV Tramadol HCl (Ultram) 50 mg PRN Q6HRS PRN PO PAIN; Start 12/23/16 at 15:00 Hydralazine HCl (Apresoline Inj) 10 mg PRN Q4HRS PRN IVP ELEVATED BP, SEE COMMENTS; Start 12/23/16 at 15:00 Docusate Sodium (Colace) 100 mg PRN DAILY PRN PO CONSTIPATION; Start 12/23/16 at 15:00 Famotidine (Pepcid Vial) 20 mg QHS IVP Last administered on 12/24/16 21:02; Start 12/23/16 at 21:00 Enoxaparin Sodium (Lovenox 40mg Syringe) 40 mg DAILY SQ ; Start 12/24/16 at 09: 00; Stop 12/24/16 at 14:57; Status DC Iohexol (Omnipaque 300 Mg/ml) 100 ml STK-MED ONCE .ROUTE ; Start 12/23/16 at 16 :19; Stop 12/23/16 at 16:20; Status DC Lidocaine HCl (Lidocaine Pf 2% Vial) 5 ml STK-MED ONCE .ROUTE ; Start 12/23/16 at 16:37; Stop 12/23/16 at 16:38; Status DC Potassium Chloride/Dextrose/ Sod Cl 1,000 ml @ 70 mls/hr [id number] IV Last administered on 12/24/16 23:52; Start 12/24/16 at 01:45 Ondansetron HCl (Zofran) 4 mg PRN Q6HRS PRN IV NAUSEA/VOMITING Last administered on 12/25/16 05:11; Start 12/24/16 at 07:30; Stop 12/25/16 at 07 :29; Status DC Fentanyl Citrate (Fentanyl 2ml Vial) 25 mcg PRN Q5MIN PRN IV MILD PAIN Last administered on 12/24/16 15:44; Start 12/24/16 at 07:30; Stop 12/25/16 at 04 :42; Status DC Fentanyl Citrate (Fentanyl 2ml Vial) 50 mcg PRN Q5MIN PRN IV MODERATE PAIN Last administered on 12/24/16 15:56; Start 12/24/16 at 07:30; Stop 12/25/16 at 04:42; Status DC Morphine Sulfate 1 mg PRN Q10MIN PRN IV SEVERE PAIN; Start 12/24/16 at 07:30; Stop 12/25/16 at 04:42; Status DC Ringer's Solution 1,000 ml @ 30 mls/hr Q24H IV Last administered on 11:30; Start 12/24/16 at 07:29; Stop 12/24/16 at 19:28; Status DC Lidocaine HCl (Xylocaine-Mpf 1% Vial) 2 ml 1X PRN PRN ID IV START; Start 12/24 at 07:30; Stop 12/25/16 at 04:42; Status DC Hydromorphone HCl (Dilaudid) 0.5 mg PRN Q10MIN PRN IV SEV PAIN, Second choice; Start 12/24/16 at 07:30; Stop 12/25/16 at 04:42; Status DC Prochlorperazine Edisylate (Compazine) 5 mg PACU PRN PRN IV NAUSEA, MRX1; Start 12/24/16 at 07:30; Stop 12/25/16 at 04:42; Status DC Iohexol (Omnipaque 300 Mg/ml) 50 ml STK-MED ONCE .ROUTE Last administered on 14:01; Start 12/24/16 at 10:26; Stop 12/24/16 at 10:27; Status DC Bupivacaine HCl/ Epinephrine Bitart (Sensorcain-Mpf Epi 0.5%-[id number]) 30 ml STK -MED ONCE .ROUTE Last administered on 12/24/16 14:01; Start 12/24/16 at 10: 26; Stop 12/24/16 at 10:27; Status DC Cellulose 1 each STK-MED ONCE .ROUTE ; Start 12/24/16 at 10:26; Stop 12/24/16 at 10:27; Status DC Heparin Sodium (Porcine) (Heparin Sodium) 10,000 unit STK-MED ONCE .ROUTE Last administered on 12/24/16 14:01; Start 12/24/16 at 10:26; Stop 12/24/16 at 10 :27; Status DC Bisacodyl (Dulcolax Supp) 10 mg STK-MED ONCE .ROUTE Last administered on 14:01; Start 12/24/16 at 10:26; Stop 12/24/16 at 10:27; Status DC Neostigmine Methylsulfate (Bloxiverz) 10 mg STK-MED ONCE .ROUTE ; Start at 12:06; Stop 12/24/16 at 12:07; Status DC Rocuronium [place] (Zemuron) 50 mg STK-MED ONCE .ROUTE ; Start 12/24/16 at 12: 06; Stop 12/24/16 at 12:07; Status DC Fentanyl Citrate (Fentanyl 2ml Vial) 100 mcg STK-MED ONCE .ROUTE ; Start at 12:06; Stop 12/24/16 at 12:07; Status DC Midazolam HCl (Versed) 2 mg STK-MED ONCE .ROUTE ; Start 12/24/16 at 12:06; Stop 12/24/16 at 12:07; Status DC Glycopyrrolate (Robinul) 1 mg STK-MED ONCE .ROUTE ; Start 12/24/16 at 12:07; Stop 12/24/16 at 12:08; Status DC Propofol 20 ml @ As Directed STK-MED ONCE IV ; Start 12/24/16 at 12:07; Stop 12/24/16 at 12:08; Status DC Propofol 20 ml @ As Directed STK-MED ONCE IV ; Start 12/24/16 at 12:07; Stop 12/24/16 at 12:08; Status DC Lidocaine HCl (Lidocaine Pf 2% Vial) 5 ml STK-MED ONCE .ROUTE ; Start 12/24/16 at 12:07; Stop 12/24/16 at 12:08; Status DC Ondansetron HCl (Zofran) 4 mg STK-MED ONCE .ROUTE ; Start 12/24/16 at 12:07; Stop 12/24/16 at 12:08; Status DC Dexamethasone Sodium Phosphate (Decadron) 20 mg STK-MED ONCE .ROUTE ; Start at 12:07; Stop 12/24/16 at 12:08; Status DC Phenylephrine HCl 1 mg STK-MED ONCE IV ; Start 12/24/16 at 13:54; Stop at 13:55; Status DC Fentanyl Citrate (Fentanyl 2ml Vial) 100 mcg STK-MED ONCE .ROUTE ; Start at 14:11; Stop 12/24/16 at 14:12; Status DC Enoxaparin Sodium (Lovenox 40mg Syringe) 40 mg Q24H SQ ; Start 12/24/16 at 18: 00 Sodium Chloride (Normal Saline Flush) 3 ml QSHIFT PRN IV AFTER MEDS AND BLOOD DRAWS; Start 12/24/16 at 15:00 Ringer's Solution 1,000 ml @ 100 mls/hr Q10H IV ; Start 12/24/16 at 14:47; Stop 12/25/16 at 04:42; Status DC Dextrose (Dextrose 50%-Water Syringe) 12.5 gm PRN Q15MIN PRN IV SEE COMMENTS; Start 12/24/16 at 15:00 Acetaminophen/ Hydrocodone Bitart (Lortab 5/325) 1 tab PRN Q4HRS PRN PO MILD PAIN Last administered on 12/25/16 08:39; Start 12/24/16 at 15:00 Morphine Sulfate 1 mg PRN Q1HR PRN IV PAIN; Start 12/24/16 at 15:00 Docusate Sodium (Colace) 100 mg BID PO Last administered on 12/25/16 08:38; Start 12/24/16 at 21:00 Ondansetron HCl (Zofran) 4 mg PRN Q6HRS PRN IV NAUESA, 1ST CHOICE; Start 12/24 at 15:00 Fentanyl Citrate (Fentanyl 2ml Vial) 100 mcg STK-MED ONCE .ROUTE ; Start at 15:42; Stop 12/24/16 at 15:43; Status DC Vitals/I & O Vital Sign - Last 24 Hours 12/24/16 12/24/16 12/24/16 12/24/16 15:00 15:14 15:29 15:44 Temp 99.7 99.7 Pulse 64 65 Resp 20 22 21 B/P (MAP) 101/55 111/56 Pulse Ox 99 95 95 O2 Delivery Mask Simple Mask Nasal Cannula Nasal Cannula O2 Flow Rate 6 6 2 2.0 12/24/16 12/24/16 12/24/16 12/24/16 15:44 15:56 15:59 16:15 Temp 99.7 99.7 98.1 99.7 99.7 98.1 Pulse 64 66 65 Resp 21 18 20 16 B/P (MAP) 112/58 98/55 118/62 (80) Pulse Ox 95 95 94 94 O2 Delivery Nasal Cannula Nasal Cannula Nasal Cannula Nasal Cannula O2 Flow Rate 2.0 2.0 2.0 2.0 12/24/16 12/24/16 12/24/16 12/24/16 16:25 16:25 16:30 16:45 Temp 98.6 97.7 98.6 97.7 Pulse 67 68 Resp 16 16 B/P (MAP) 115/60 (78) 126/68 (87) Pulse Ox 92 92 O2 Delivery Nasal Cannula Nasal Cannula Nasal Cannula Nasal Cannula O2 Flow Rate 2.0 2.0 12/24/16 12/24/16 12/24/16 12/24/16 17:00 17:30 17:37 18:00 Temp 98.8 98.7 98.7 98.8 98.7 98.7 Pulse 75 74 74 Resp 16 16 16 B/P (MAP) 123/64 (83) 124/61 (82) 125/63 (83) Pulse Ox 93 93 92 93 O2 Delivery Nasal Cannula Nasal Cannula Nasal Cannula Nasal Cannula O2 Flow Rate 2.0 2.0 2.0 2.0 12/24/16 12/24/16 12/24/16 12/24/16 19:15 20:00 21:11 21:41 Temp 98.2 98.2 Pulse 72 Resp 18 20 B/P (MAP) 125/65 (85) Pulse Ox 94 95 O2 Delivery Nasal Cannula Nasal Cannula Room Air O2 Flow Rate 2.0 2.0 2.0 2.0 12/24/16 12/25/16 12/25/16 12/25/16 23:10 02:57 05:11 05:41 Temp 98.5 98.1 98.5 98.1 Pulse 71 62 Resp 18 18 20 20 B/P (MAP) 121/67 (85) 133/75 (94) Pulse Ox 93 95 95 95 O2 Delivery Nasal Cannula Nasal Cannula Room Air Room Air O2 Flow Rate 2.0 2.0 12/25/16 12/25/16 12/25/16 12/25/16 07:08 08:30 08:38 08:39 Temp 98.5 98.5 Pulse 66 66 Resp 16 B/P (MAP) 137/80 (99) 133/80 Pulse Ox 92 O2 Delivery Room Air Room Air Room Air 12/25/16 12/25/16 11:00 11:23 Temp 98.3 98.3 Pulse 68 Resp 16 B/P (MAP) 133/71 (91) Pulse Ox 93 O2 Delivery Nasal Cannula Nasal Cannula O2 Flow Rate 1.0 Intake and Output 12/24/16 12/24/16 12/25/16 15:00 23:00 07:00 Intake Total 925 ml 180 ml Output Total 210 ml 80 ml 210 ml Balance -210 ml 845 ml -30 ml ORIN FINE MD Dec 25, 2016 14:11
[2016-12-25 15:00] VITALS: BP 121/62
[2016-12-25] MEDS: ENOXAPARIN 40 MG/0.4 ML SYRINGE. SQ SCH (17:30)
[2016-12-25 19:00] VITALS: BP 123/54
[2016-12-25] MEDS: LACTOBACILLUS RHAMNOSUS GG 1 CAPSULE. PO SCH (20:31)
[2016-12-25] MEDS: SIMVASTATIN 20 MG TABLET PO SCH (20:31)
[2016-12-25] MEDS: FAMOTIDINE 20 MG/2 ML VIAL IVP SCH (20:32)
[2016-12-25 23:00] VITALS: BP 131/54
[2016-12-26] MEDS: PIPERACILLIN/TAZO IV Push 3.375 GM VIAL. IVP SCH ×5 (00:08→18:00)
[2016-12-26] MEDS: HYDROcodone/APAP 5/325MG 1 TAB TABLET PO PRN ×4 (00:12→17:32)
[2016-12-26 03:00] VITALS: BP 164/77
[2016-12-26 05:21] LABS: BASO % 0 % (0-3); EOS % 0 % (0-3); HEMATOCRIT 32.2 % (36.0-47.0); HEMOGLOBIN 11.2 g/dL (12.0-15.5); LYMPH # 1.3 x10^3/uL (1.0-4.8); LYMPH % 13 % (24-48); MEAN CORPUSCULAR HEMOGLOBIN 32 pg (25-35); MEAN CORPUSCULAR HGB CONC 35 g/dL (31-37); MEAN CORPUSCULAR VOLUME 91 fL (79-100); MONO % 8 % (0-9); NEUT % 79 % (31-73); PLATELET COUNT 182 x10^3/uL (140-400); RED BLOOD COUNT 3.54 x10^6/uL (3.50-5.40); RED CELL DISTRIBUTION WIDTH 12.8 % (11.5-14.5); WHITE BLOOD COUNT 9.3 x10^3/uL (4.0-11.0)
[2016-12-26 05:28] LABS: ALBUMIN/GLOBULIN RATIO 0.5 (1.0-1.7); CALCIUM 8.4 mg/dL (8.5-10.1); CREATININE 0.7 mg/dL (0.6-1.0); GFR 84.5; POTASSIUM 4.1 mmol/L (3.5-5.1); TOTAL BILIRUBIN 1.8 mg/dL (0.2-1.0); TOTAL PROTEIN 6.3 g/dL (6.4-8.2)
[2016-12-26 07:00] VITALS: BP 150/77
[2016-12-26] MEDS: LACTOBACILLUS RHAMNOSUS GG 1 CAPSULE. PO SCH ×2 (08:16→22:37)
[2016-12-26] MEDS: CARVEDILOL 12.5 MG TABLET. PO SCH ×2 (08:16→17:32)
[2016-12-26] MEDS: DOCUSATE SODIUM 100 MG CAPSULE. PO SCH ×2 (08:17→22:37)
--- NOTE | 2016-12-26 09:30 | PDOC ---
SURGICAL PROGRESS NOTE Subjective tolerating diet feeling better Vital Signs Vital Signs Date Time Temp Pulse Resp B/P (MAP) Pulse Ox O2 Delivery O2 Flow Rate FiO2 12/26/16 09:07 92 Nasal Cannula 1.0 12/26/16 08:16 65 164/77 12/26/16 07:00 98.4 18 98.4 I&O Intake and Output 12/26/16 06:59 Intake Total 1150 ml Output Total 120 ml Balance 1030 ml Intake Oral 200 ml IV Total 950 ml Drainage Total 120 ml # Voids 5 General: Alert, Oriented X3, Cooperative, No acute distress Abdomen: Soft, Other (ADAN serosang, lap sites c/d/i, no erythema ) Labs Laboratory Tests Test 12/25/16 05:20 12/26/16 03:45 White Blood Count 11.0 x10^3/uL (4.0-11.0) 9.3 x10^3/uL (4.0-11.0) Red Blood Count 3.86 x10^6/uL (3.50-5.40) 3.54 x10^6/uL (3.50-5.40) Hemoglobin 12.2 g/dL (12.0-15.5) 11.2 g/dL (12.0-15.5) Hematocrit 35.2 % (36.0-47.0) 32.2 % (36.0-47.0) Mean Corpuscular Volume 91 fL (79-100) 91 fL (79-100) Mean Corpuscular Hemoglobin 32 pg (25-35) 32 pg (25-35) Mean Corpuscular Hemoglobin Concent 35 g/dL (31-37) 35 g/dL (31-37) Red Cell Distribution Width 13.0 % (11.5-14.5) 12.8 % (11.5-14.5) Platelet Count 179 x10^3/uL (140-400) 182 x10^3/uL (140-400) Neutrophils (%) (Auto) 91 % (31-73) 79 % (31-73) Lymphocytes (%) (Auto) 6 % (24-48) 13 % (24-48) Monocytes (%) (Auto) 3 % (0-9) 8 % (0-9) Eosinophils (%) (Auto) 0 % (0-3) 0 % (0-3) Basophils (%) (Auto) 0 % (0-3) 0 % (0-3) Neutrophils # (Auto) 10.0 x10^3uL (1.8-7.7) 7.3 x10^3uL (1.8-7.7) Lymphocytes # (Auto) 0.6 x10^3/uL (1.0-4.8) 1.3 x10^3/uL (1.0-4.8) Monocytes # (Auto) 0.4 x10^3/uL (0.0-1.1) 0.7 x10^3/uL (0.0-1.1) Eosinophils # (Auto) 0.0 x10^3/uL (0.0-0.7) 0.0 x10^3/uL (0.0-0.7) Basophils # (Auto) 0.0 x10^3/uL (0.0-0.2) 0.0 x10^3/uL (0.0-0.2) Sodium Level 139 mmol/L (136-145) 139 mmol/L (136-145) Potassium Level 4.6 mmol/L (3.5-5.1) 4.1 mmol/L (3.5-5.1) Chloride Level 104 mmol/L (98-107) 106 mmol/L (98-107) Carbon Dioxide Level 26 mmol/L (21-32) 27 mmol/L (21-32) Anion Gap 9 (6-14) 6 (6-14) Blood Urea Nitrogen 9 mg/dL (7-20) 14 mg/dL (7-20) Creatinine 0.8 mg/dL (0.6-1.0) 0.7 mg/dL (0.6-1.0) Estimated GFR (Cockcroft-Gault) 72.4 84.5 BUN/Creatinine Ratio 11 (6-20) 20 (6-20) Glucose Level 157 mg/dL (70-99) 121 mg/dL (70-99) Calcium Level 8.8 mg/dL (8.5-10.1) 8.4 mg/dL (8.5-10.1) Total Bilirubin 3.6 mg/dL (0.2-1.0) 1.8 mg/dL (0.2-1.0) Direct Bilirubin 3.1 mg/dL (0.0-0.2) Aspartate Amino Transf (AST/SGOT) 614 U/L (15-37) 660 U/L (15-37) Alanine Aminotransferase (ALT/SGPT) 892 U/L (14-59) 998 U/L (14-59) Alkaline Phosphatase 652 U/L (46-116) 557 U/L (46-116) Total Protein 6.5 g/dL (6.4-8.2) 6.3 g/dL (6.4-8.2) Albumin 2.5 g/dL (3.4-5.0) 2.0 g/dL (3.4-5.0) Albumin/Globulin Ratio 0.6 (1.0-1.7) 0.5 (1.0-1.7) Laboratory Tests Test 12/26/16 03:45 White Blood Count 9.3 x10^3/uL (4.0-11.0) Red Blood Count 3.54 x10^6/uL (3.50-5.40) Hemoglobin 11.2 g/dL (12.0-15.5) Hematocrit 32.2 % (36.0-47.0) Mean Corpuscular Volume 91 fL (79-100) Mean Corpuscular Hemoglobin 32 pg (25-35) Mean Corpuscular Hemoglobin Concent 35 g/dL (31-37) Red Cell Distribution Width 12.8 % (11.5-14.5) Platelet Count 182 x10^3/uL (140-400) Neutrophils (%) (Auto) 79 % (31-73) Lymphocytes (%) (Auto) 13 % (24-48) Monocytes (%) (Auto) 8 % (0-9) Eosinophils (%) (Auto) 0 % (0-3) Basophils (%) (Auto) 0 % (0-3) Neutrophils # (Auto) 7.3 x10^3uL (1.8-7.7) Lymphocytes # (Auto) 1.3 x10^3/uL (1.0-4.8) Monocytes # (Auto) 0.7 x10^3/uL (0.0-1.1) Eosinophils # (Auto) 0.0 x10^3/uL (0.0-0.7) Basophils # (Auto) 0.0 x10^3/uL (0.0-0.2) Sodium Level 139 mmol/L (136-145) Potassium Level 4.1 mmol/L (3.5-5.1) Chloride Level 106 mmol/L (98-107) Carbon Dioxide Level 27 mmol/L (21-32) Anion Gap 6 (6-14) Blood Urea Nitrogen 14 mg/dL (7-20) Creatinine 0.7 mg/dL (0.6-1.0) Estimated GFR (Cockcroft-Gault) 84.5 BUN/Creatinine Ratio 20 (6-20) Glucose Level 121 mg/dL (70-99) Calcium Level 8.4 mg/dL (8.5-10.1) Total Bilirubin 1.8 mg/dL (0.2-1.0) Aspartate Amino Transf (AST/SGOT) 660 U/L (15-37) Alanine Aminotransferase (ALT/SGPT) 998 U/L (14-59) Alkaline Phosphatase 557 U/L (46-116) Total Protein 6.3 g/dL (6.4-8.2) Albumin 2.0 g/dL (3.4-5.0) Albumin/Globulin Ratio 0.5 (1.0-1.7) Assessment/Plan s/p lap chyna bili trending down, follow labs Problems: JEROME PACHECO CLINICAL THERAPIST Dec 26, 2016 09:30
--- NOTE | 2016-12-26 10:09 | PDOC ---
Subjective: Subjective: Family present to translate. Feeling better, just a little pain. Wants to go home. Objective: Vital Signs: Vital Signs Date Time Temp Pulse Resp B/P (MAP) Pulse Ox O2 Delivery O2 Flow Rate FiO2 12/26/16 09:07 92 Nasal Cannula 1.0 12/26/16 08:16 65 164/77 12/26/16 07:00 98.4 18 98.4 Labs: Laboratory Tests Test 12/26/16 03:45 White Blood Count 9.3 x10^3/uL Red Blood Count 3.54 x10^6/uL Hemoglobin 11.2 g/dL Hematocrit 32.2 % Mean Corpuscular Volume 91 fL Mean Corpuscular Hemoglobin 32 pg Mean Corpuscular Hemoglobin Concent 35 g/dL Red Cell Distribution Width 12.8 % Platelet Count 182 x10^3/uL Neutrophils (%) (Auto) 79 % Lymphocytes (%) (Auto) 13 % Monocytes (%) (Auto) 8 % Eosinophils (%) (Auto) 0 % Basophils (%) (Auto) 0 % Neutrophils # (Auto) 7.3 x10^3uL Lymphocytes # (Auto) 1.3 x10^3/uL Monocytes # (Auto) 0.7 x10^3/uL Eosinophils # (Auto) 0.0 x10^3/uL Basophils # (Auto) 0.0 x10^3/uL Sodium Level 139 mmol/L Potassium Level 4.1 mmol/L Chloride Level 106 mmol/L Carbon Dioxide Level 27 mmol/L Anion Gap 6 Blood Urea Nitrogen 14 mg/dL Creatinine 0.7 mg/dL Estimated GFR (Cockcroft-Gault) 84.5 BUN/Creatinine Ratio 20 Glucose Level 121 mg/dL Calcium Level 8.4 mg/dL Total Bilirubin 1.8 mg/dL Aspartate Amino Transf (AST/SGOT) 660 U/L Alanine Aminotransferase (ALT/SGPT) 998 U/L Alkaline Phosphatase 557 U/L Total Protein 6.3 g/dL Albumin 2.0 g/dL Albumin/Globulin Ratio 0.5 PE: GEN: NAD LUNGS: CTAB HEART: RRR ABD: mild RUQ discomfort, drain serosang, soft NEURO/PSYCH: A & O 3, smiling A/P: Obstructive jaundice S/p ERCP (choledocholithiasis, cholangitis) S/p cholecystectomy (severe cholecystitis, cholangitis) -- Bili improving. DC per primary/surgery. Needs outpt screening colonoscopy. JAIME WARREN Dec 26, 2016 10:09
[2016-12-26 11:00] VITALS: BP 162/75
--- NOTE | 2016-12-26 14:04 | PDOC ---
PROGRESS NOTES Chief Complaint Chief Complaint Post op lap chyna acute abd pain, acute cholecystitis with choledochalithiasis seen on CT scan at outside hospital acute transaminitis, AST and ALT both elevated, bili up a litte sepsis, zosyn to cover for possible cholangitis HTN hypoKalemia History of Present Illness History of Present Illness Spoke with pt brother, acting as screen cleaner Pt is hoping to discharge today Alert, no acute distress Incision CDI Vitals Vitals Vital Signs Date Time Temp Pulse Resp B/P (MAP) Pulse Ox O2 Delivery O2 Flow Rate FiO2 12/26/16 11:00 98.5 64 18 162/75 (104) 92 Nasal Cannula 1.0 98.5 Physical Exam General: Alert, Cooperative, No acute distress Heart: Regular rate, Normal S1, Normal S2, No murmurs Lungs: Clear Abdomen: Soft, No tenderness Extremities: No clubbing, No cyanosis, No edema Skin: No rashes, No breakdown Labs LABS Laboratory Tests Test 12/26/16 03:45 White Blood Count 9.3 x10^3/uL (4.0-11.0) Red Blood Count 3.54 x10^6/uL (3.50-5.40) Hemoglobin 11.2 g/dL (12.0-15.5) Hematocrit 32.2 % (36.0-47.0) Mean Corpuscular Volume 91 fL (79-100) Mean Corpuscular Hemoglobin 32 pg (25-35) Mean Corpuscular Hemoglobin Concent 35 g/dL (31-37) Red Cell Distribution Width 12.8 % (11.5-14.5) Platelet Count 182 x10^3/uL (140-400) Neutrophils (%) (Auto) 79 % (31-73) Lymphocytes (%) (Auto) 13 % (24-48) Monocytes (%) (Auto) 8 % (0-9) Eosinophils (%) (Auto) 0 % (0-3) Basophils (%) (Auto) 0 % (0-3) Neutrophils # (Auto) 7.3 x10^3uL (1.8-7.7) Lymphocytes # (Auto) 1.3 x10^3/uL (1.0-4.8) Monocytes # (Auto) 0.7 x10^3/uL (0.0-1.1) Eosinophils # (Auto) 0.0 x10^3/uL (0.0-0.7) Basophils # (Auto) 0.0 x10^3/uL (0.0-0.2) Sodium Level 139 mmol/L (136-145) Potassium Level 4.1 mmol/L (3.5-5.1) Chloride Level 106 mmol/L (98-107) Carbon Dioxide Level 27 mmol/L (21-32) Anion Gap 6 (6-14) Blood Urea Nitrogen 14 mg/dL (7-20) Creatinine 0.7 mg/dL (0.6-1.0) Estimated GFR (Cockcroft-Gault) 84.5 BUN/Creatinine Ratio 20 (6-20) Glucose Level 121 mg/dL (70-99) Calcium Level 8.4 mg/dL (8.5-10.1) Total Bilirubin 1.8 mg/dL (0.2-1.0) Aspartate Amino Transf (AST/SGOT) 660 U/L (15-37) Alanine Aminotransferase (ALT/SGPT) 998 U/L (14-59) Alkaline Phosphatase 557 U/L (46-116) Total Protein 6.3 g/dL (6.4-8.2) Albumin 2.0 g/dL (3.4-5.0) Albumin/Globulin Ratio 0.5 (1.0-1.7) Review of Systems Review of Systems General: No fever, chills, night sweats, fatigue CV: No palpitations, chest pain Pulm: No soa, dyspnea, hemoptysis Assessment and Plan Assessmemt and Plan Assessment: Post op lap chyna acute abd pain, acute cholecystitis with choledochalithiasis seen on CT scan at outside hospital acute transaminitis, AST and ALT both elevated, bili up a litte sepsis, zosyn to cover for possible cholangitis HTN hypoKalemia [place]: Probably discharge today if agreeable with surgery Continue Home meds Follow up PCP Activity as Tolerated Problems: Comment Review of Relevant I have reviewed the following items les (where applicable) has been applied. Labs Laboratory Tests Test 12/25/16 05:20 12/26/16 03:45 White Blood Count 11.0 x10^3/uL (4.0-11.0) 9.3 x10^3/uL (4.0-11.0) Red Blood Count 3.86 x10^6/uL (3.50-5.40) 3.54 x10^6/uL (3.50-5.40) Hemoglobin 12.2 g/dL (12.0-15.5) 11.2 g/dL (12.0-15.5) Hematocrit 35.2 % (36.0-47.0) 32.2 % (36.0-47.0) Mean Corpuscular Volume 91 fL (79-100) 91 fL (79-100) Mean Corpuscular Hemoglobin 32 pg (25-35) 32 pg (25-35) Mean Corpuscular Hemoglobin Concent 35 g/dL (31-37) 35 g/dL (31-37) Red Cell Distribution Width 13.0 % (11.5-14.5) 12.8 % (11.5-14.5) Platelet Count 179 x10^3/uL (140-400) 182 x10^3/uL (140-400) Neutrophils (%) (Auto) 91 % (31-73) 79 % (31-73) Lymphocytes (%) (Auto) 6 % (24-48) 13 % (24-48) Monocytes (%) (Auto) 3 % (0-9) 8 % (0-9) Eosinophils (%) (Auto) 0 % (0-3) 0 % (0-3) Basophils (%) (Auto) 0 % (0-3) 0 % (0-3) Neutrophils # (Auto) 10.0 x10^3uL (1.8-7.7) 7.3 x10^3uL (1.8-7.7) Lymphocytes # (Auto) 0.6 x10^3/uL (1.0-4.8) 1.3 x10^3/uL (1.0-4.8) Monocytes # (Auto) 0.4 x10^3/uL (0.0-1.1) 0.7 x10^3/uL (0.0-1.1) Eosinophils # (Auto) 0.0 x10^3/uL (0.0-0.7) 0.0 x10^3/uL (0.0-0.7) Basophils # (Auto) 0.0 x10^3/uL (0.0-0.2) 0.0 x10^3/uL (0.0-0.2) Sodium Level 139 mmol/L (136-145) 139 mmol/L (136-145) Potassium Level 4.6 mmol/L (3.5-5.1) 4.1 mmol/L (3.5-5.1) Chloride Level 104 mmol/L (98-107) 106 mmol/L (98-107) Carbon Dioxide Level 26 mmol/L (21-32) 27 mmol/L (21-32) Anion Gap 9 (6-14) 6 (6-14) Blood Urea Nitrogen 9 mg/dL (7-20) 14 mg/dL (7-20) Creatinine 0.8 mg/dL (0.6-1.0) 0.7 mg/dL (0.6-1.0) Estimated GFR (Cockcroft-Gault) 72.4 84.5 BUN/Creatinine Ratio 11 (6-20) 20 (6-20) Glucose Level 157 mg/dL (70-99) 121 mg/dL (70-99) Calcium Level 8.8 mg/dL (8.5-10.1) 8.4 mg/dL (8.5-10.1) Total Bilirubin 3.6 mg/dL (0.2-1.0) 1.8 mg/dL (0.2-1.0) Direct Bilirubin 3.1 mg/dL (0.0-0.2) Aspartate Amino Transf (AST/SGOT) 614 U/L (15-37) 660 U/L (15-37) Alanine Aminotransferase (ALT/SGPT) 892 U/L (14-59) 998 U/L (14-59) Alkaline Phosphatase 652 U/L (46-116) 557 U/L (46-116) Total Protein 6.5 g/dL (6.4-8.2) 6.3 g/dL (6.4-8.2) Albumin 2.5 g/dL (3.4-5.0) 2.0 g/dL (3.4-5.0) Albumin/Globulin Ratio 0.6 (1.0-1.7) 0.5 (1.0-1.7) Laboratory Tests Test 12/26/16 03:45 White Blood Count 9.3 x10^3/uL (4.0-11.0) Red Blood Count 3.54 x10^6/uL (3.50-5.40) Hemoglobin 11.2 g/dL (12.0-15.5) Hematocrit 32.2 % (36.0-47.0) Mean Corpuscular Volume 91 fL (79-100) Mean Corpuscular Hemoglobin 32 pg (25-35) Mean Corpuscular Hemoglobin Concent 35 g/dL (31-37) Red Cell Distribution Width 12.8 % (11.5-14.5) Platelet Count 182 x10^3/uL (140-400) Neutrophils (%) (Auto) 79 % (31-73) Lymphocytes (%) (Auto) 13 % (24-48) Monocytes (%) (Auto) 8 % (0-9) Eosinophils (%) (Auto) 0 % (0-3) Basophils (%) (Auto) 0 % (0-3) Neutrophils # (Auto) 7.3 x10^3uL (1.8-7.7) Lymphocytes # (Auto) 1.3 x10^3/uL (1.0-4.8) Monocytes # (Auto) 0.7 x10^3/uL (0.0-1.1) Eosinophils # (Auto) 0.0 x10^3/uL (0.0-0.7) Basophils # (Auto) 0.0 x10^3/uL (0.0-0.2) Sodium Level 139 mmol/L (136-145) Potassium Level 4.1 mmol/L (3.5-5.1) Chloride Level 106 mmol/L (98-107) Carbon Dioxide Level 27 mmol/L (21-32) Anion Gap 6 (6-14) Blood Urea Nitrogen 14 mg/dL (7-20) Creatinine 0.7 mg/dL (0.6-1.0) Estimated GFR (Cockcroft-Gault) 84.5 BUN/Creatinine Ratio 20 (6-20) Glucose Level 121 mg/dL (70-99) Calcium Level 8.4 mg/dL (8.5-10.1) Total Bilirubin 1.8 mg/dL (0.2-1.0) Aspartate Amino Transf (AST/SGOT) 660 U/L (15-37) Alanine Aminotransferase (ALT/SGPT) 998 U/L (14-59) Alkaline Phosphatase 557 U/L (46-116) Total Protein 6.3 g/dL (6.4-8.2) Albumin 2.0 g/dL (3.4-5.0) Albumin/Globulin Ratio 0.5 (1.0-1.7) Medications Current Medications Sodium Chloride 1,000 ml @ 100 mls/hr Q10H IV Last administered on 12/22/16 20:45; Start 12/22/16 at 20:45; Stop 12/23/16 at 08:51; Status DC Morphine Sulfate 4 mg PRN Q2HR PRN IV PAIN Last administered on 12/25/16 05: 11; Start 12/22/16 at 20:45 Ondansetron HCl (Zofran) 4 mg PRN Q8HRS PRN IV NAUSEA/VOMITING; Start at 20:45; Stop 12/25/16 at 14:41; Status DC Piperacillin Sod/ Tazobactam Sod (Zosyn Per Pharmacy) 1 each PRN DAILY PRN MC SEE COMMENTS; Start 12/22/16 at 20:45 Piperacillin Sod/ Tazobactam Sod (Zosyn) 3.375 gm Q6HRS IVP Last administered on 12/26/16 12:28; Start 12/23/16 at 00:00 Simvastatin (Zocor) 20 mg HS PO Last administered on 12/25/16 20:31; Start 12/23/16 at 21:00 Hydrochlorothiazide (Hydrodiuril) 25 mg DAILY PO ; Start 12/23/16 at 09:00; Stop 12/23/16 at 14:51; Status DC Amlodipine Besylate (Norvasc) 10 mg DAILY PO ; Start 12/23/16 at 09:00; Stop 12/23/16 at 14:51; Status DC Carvedilol (Coreg) 12.5 mg BIDWMEALS PO Last administered on 12/26/16 08:16; Start 12/23/16 at 08:00 Potassium Chloride/Dextrose/ Sod Cl 1,000 ml @ 100 mls/hr BID IV Last administered on 12/23/16 06:26; Start 12/23/16 at 09:00; Stop 12/23/16 at 09 :00; Status DC Potassium Chloride/Dextrose/ Sod Cl 1,000 ml @ 250 mls/hr CONT PRN IV SEE I/O RECORD; Start 12/23/16 at 09:00; Status Cancel Potassium Chloride 40 meq/ Sodium Chloride 520 ml @ 130 mls/hr 1X ONCE IV Last administered on 12/23/16t 11:19; Start 12/23/16 at 11:00; Stop 12/23/16 at 14:59; Status DC Acetaminophen (Tylenol) 650 mg PRN Q6HRS PRN PO FEVER Last administered on 18:00; Start 12/23/16 at 15:00 Ondansetron HCl (Zofran) 4 mg PRN Q6HRS PRN IV NAUSEA/VOMITING; Start at 15:00; Status UNV Morphine Sulfate 2 mg PRN Q2HR PRN IV PAIN; Start 12/23/16 at 15:00; Status UNV Tramadol HCl (Ultram) 50 mg PRN Q6HRS PRN PO PAIN; Start 12/23/16 at 15:00 Hydralazine HCl (Apresoline Inj) 10 mg PRN Q4HRS PRN IVP ELEVATED BP, SEE COMMENTS; Start 12/23/16 at 15:00 Docusate Sodium (Colace) 100 mg PRN DAILY PRN PO CONSTIPATION; Start 12/23/16 at 15:00 Famotidine (Pepcid Vial) 20 mg QHS IVP Last administered on 12/25/16t 20:32; Start 12/23/16 at 21:00 Enoxaparin Sodium (Lovenox 40mg Syringe) 40 mg DAILY SQ ; Start 12/24/16 at 09: 00; Stop 12/24/16 at 14:57; Status DC Iohexol (Omnipaque 300 Mg/ml) 100 ml STK-MED ONCE .ROUTE ; Start 12/23/16 at 16 :19; Stop 12/23/16 at 16:20; Status DC Lidocaine HCl (Lidocaine Pf 2% Vial) 5 ml STK-MED ONCE .ROUTE ; Start 12/23/16 at 16:37; Stop 12/23/16 at 16:38; Status DC Potassium Chloride/Dextrose/ Sod Cl 1,000 ml @ 70 mls/hr [id number] IV Last administered on 12/24/16 23:52; Start 12/24/16 at 01:45; Stop 12/25/16 at 22 :08; Status DC Ondansetron HCl (Zofran) 4 mg PRN Q6HRS PRN IV NAUSEA/VOMITING Last administered on 12/25/16 05:11; Start 12/24/16 at 07:30; Stop 12/25/16 at 07 :29; Status DC Fentanyl Citrate (Fentanyl 2ml Vial) 25 mcg PRN Q5MIN PRN IV MILD PAIN Last administered on 12/24/16 15:44; Start 12/24/16 at 07:30; Stop 12/25/16 at 04 :42; Status DC Fentanyl Citrate (Fentanyl 2ml Vial) 50 mcg PRN Q5MIN PRN IV MODERATE PAIN Last administered on 12/24/16 15:56; Start 12/24/16 at 07:30; Stop 12/25/16 at 04:42; Status DC Morphine Sulfate 1 mg PRN Q10MIN PRN IV SEVERE PAIN; Start 12/24/16 at 07:30; Stop 12/25/16 at 04:42; Status DC Ringer's Solution 1,000 ml @ 30 mls/hr Q24H IV Last administered on 11:30; Start 12/24/16 at 07:29; Stop 12/24/16 at 19:28; Status DC Lidocaine HCl (Xylocaine-Mpf 1% Vial) 2 ml 1X PRN PRN ID IV START; Start 12/24 at 07:30; Stop 12/25/16 at 04:42; Status DC Hydromorphone HCl (Dilaudid) 0.5 mg PRN Q10MIN PRN IV SEV PAIN, Second choice; Start 12/24/16 at 07:30; Stop 12/25/16 at 04:42; Status DC Prochlorperazine Edisylate (Compazine) 5 mg PACU PRN PRN IV NAUSEA, MRX1; Start 12/24/16 at 07:30; Stop 12/25/16 at 04:42; Status DC Iohexol (Omnipaque 300 Mg/ml) 50 ml STK-MED ONCE .ROUTE Last administered on 14:01; Start 12/24/16 at 10:26; Stop 12/24/16 at 10:27; Status DC Bupivacaine HCl/ Epinephrine Bitart (Sensorcain-Mpf Epi 0.5%-[id number]) 30 ml STK -MED ONCE .ROUTE Last administered on 12/24/16 14:01; Start 12/24/16 at 10: 26; Stop 12/24/16 at 10:27; Status DC Cellulose 1 each STK-MED ONCE .ROUTE ; Start 12/24/16 at 10:26; Stop 12/24/16 at 10:27; Status DC Heparin Sodium (Porcine) (Heparin Sodium) 10,000 unit STK-MED ONCE .ROUTE Last administered on 12/24/16 14:01; Start 12/24/16 at 10:26; Stop 12/24/16 at 10 :27; Status DC Bisacodyl (Dulcolax Supp) 10 mg STK-MED ONCE .ROUTE Last administered on 14:01; Start 12/24/16 at 10:26; Stop 12/24/16 at 10:27; Status DC Neostigmine Methylsulfate (Bloxiverz) 10 mg STK-MED ONCE .ROUTE ; Start at 12:06; Stop 12/24/16 at 12:07; Status DC Rocuronium [place] (Zemuron) 50 mg STK-MED ONCE .ROUTE ; Start 12/24/16 at 12: 06; Stop 12/24/16 at 12:07; Status DC Fentanyl Citrate (Fentanyl 2ml Vial) 100 mcg STK-MED ONCE .ROUTE ; Start at 12:06; Stop 12/24/16 at 12:07; Status DC Midazolam HCl (Versed) 2 mg STK-MED ONCE .ROUTE ; Start 12/24/16 at 12:06; Stop 12/24/16 at 12:07; Status DC Glycopyrrolate (Robinul) 1 mg STK-MED ONCE .ROUTE ; Start 12/24/16 at 12:07; Stop 12/24/16 at 12:08; Status DC Propofol 20 ml @ As Directed STK-MED ONCE IV ; Start 12/24/16 at 12:07; Stop 12/24/16 at 12:08; Status DC Propofol 20 ml @ As Directed STK-MED ONCE IV ; Start 12/24/16 at 12:07; Stop 12/24/16 at 12:08; Status DC Lidocaine HCl (Lidocaine Pf 2% Vial) 5 ml STK-MED ONCE .ROUTE ; Start 12/24/16 at 12:07; Stop 12/24/16 at 12:08; Status DC Ondansetron HCl (Zofran) 4 mg STK-MED ONCE .ROUTE ; Start 12/24/16 at 12:07; Stop 12/24/16 at 12:08; Status DC Dexamethasone Sodium Phosphate (Decadron) 20 mg STK-MED ONCE .ROUTE ; Start at 12:07; Stop 12/24/16 at 12:08; Status DC Phenylephrine HCl 1 mg STK-MED ONCE IV ; Start 12/24/16 at 13:54; Stop at 13:55; Status DC Fentanyl Citrate (Fentanyl 2ml Vial) 100 mcg STK-MED ONCE .ROUTE ; Start at 14:11; Stop 12/24/16 at 14:12; Status DC Enoxaparin Sodium (Lovenox 40mg Syringe) 40 mg Q24H SQ Last administered on 17:30; Start 12/24/16 at 18:00 Sodium Chloride (Normal Saline Flush) 3 ml QSHIFT PRN IV AFTER MEDS AND BLOOD DRAWS; Start 12/24/16 at 15:00 Ringer's Solution 1,000 ml @ 100 mls/hr Q10H IV ; Start 12/24/16 at 14:47; Stop 12/25/16 at 04:42; Status DC Dextrose (Dextrose 50%-Water Syringe) 12.5 gm PRN Q15MIN PRN IV SEE COMMENTS; Start 12/24/16 at 15:00 Acetaminophen/ Hydrocodone Bitart (Lortab 5/325) 1 tab PRN Q4HRS PRN PO MILD PAIN Last administered on 12/26/16 09:07; Start 12/24/16 at 15:00 Morphine Sulfate 1 mg PRN Q1HR PRN IV PAIN; Start 12/24/16 at 15:00 Docusate Sodium (Colace) 100 mg BID PO Last administered on 12/26/16 08:17; Start 12/24/16 at 21:00 Ondansetron HCl (Zofran) 4 mg PRN Q6HRS PRN IV NAUESA, 1ST CHOICE; Start 12/24 at 15:00 Fentanyl Citrate (Fentanyl 2ml Vial) 100 mcg STK-MED ONCE .ROUTE ; Start at 15:42; Stop 12/24/16 at 15:43; Status DC Lactobacillus Rhamnosus (Culturelle) 1 cap BID PO Last administered on t 08:16; Start 12/25/16 at 21:00 Rocuronium [place] (Zemuron) 50 mg STK-MED ONCE .ROUTE ; Start 12/25/16 at 12: 00; Stop 12/26/16 at 08:35; Status DC Propofol (Diprivan) 200 mg STK-MED ONCE IV ; Start 12/25/16 at 12:00; Stop at 08:35; Status DC Vitals/I & O Vital Sign - Last 24 Hours 12/25/16 12/25/16 12/25/16 12/25/16 15:00 15:05 17:38 19:00 Temp 99.1 97.9 99.1 97.9 Pulse 58 58 53 Resp 18 18 B/P (MAP) 121/62 (81) 121/62 123/54 (77) Pulse Ox 92 91 O2 Delivery Nasal Cannula Nasal Cannula Nasal Cannula O2 Flow Rate 1.0 2.0 12/25/16 12/25/16 12/25/16 12/26/16 19:58 20:32 23:00 00:12 Temp 99.7 99.7 Pulse 64 Resp 20 18 20 B/P (MAP) 131/54 (79) Pulse Ox 92 92 92 O2 Delivery Nasal Cannula Nasal Cannula Nasal Cannula Nasal Cannula O2 Flow Rate 1.0 1.0 2.0 1.0 12/26/16 12/26/16 12/26/16 12/26/16 03:00 05:07 06:07 07:00 Temp 98.1 98.4 98.1 98.4 Pulse 65 60 Resp 18 20 20 18 B/P (MAP) 164/77 (106) 150/77 (101) Pulse Ox 90 92 92 O2 Delivery Nasal Cannula Nasal Cannula Nasal Cannula O2 Flow Rate 2.0 1.0 2.0 12/26/16 12/26/16 12/26/16 12/26/16 07:45 08:16 09:07 10:10 Pulse 65 B/P (MAP) 164/77 Pulse Ox 92 92 O2 Delivery Nasal Cannula Nasal Cannula Nasal Cannula O2 Flow Rate 1.0 1.0 1.0 12/26/16 11:00 Temp 98.5 98.5 Pulse 64 Resp 18 B/P (MAP) 162/75 (104) Pulse Ox 92 O2 Delivery Nasal Cannula O2 Flow Rate 1.0 Intake and Output 12/25/16 12/25/16 12/26/16 15:00 23:00 07:00 Intake Total 950 ml 200 ml Output Total 30 ml 60 ml 30 ml Balance -30 ml 890 ml 170 ml SIENA ALMONTE III DO Dec 26, 2016 14:04
[2016-12-26 15:00] VITALS: BP 166/77
[2016-12-26] MEDS: ENOXAPARIN 40 MG/0.4 ML SYRINGE. SQ SCH (17:33)
[2016-12-26 19:00] VITALS: BP 161/91
[2016-12-26] MEDS ORDERED: FAMOTIDINE 20 MG TABLET. PO SCH (21:00)
[2016-12-26] MEDS: SIMVASTATIN 20 MG TABLET PO SCH (22:37)
[2016-12-26 23:00] VITALS: BP_SYST 161; BP_SYST 163; BP_DIAS 81; BP_DIAS 91
[2016-12-27] MEDS: PIPERACILLIN/TAZO IV Push 3.375 GM VIAL. IVP SCH ×5 (00:24→18:49)
[2016-12-27 03:05] VITALS: BP 176/77
[2016-12-27 05:52] LABS: ALBUMIN 2.3 g/dL (3.4-5.0); ALBUMIN/GLOBULIN RATIO 0.5 (1.0-1.7); CALCIUM 8.9 mg/dL (8.5-10.1); CREATININE 0.8 mg/dL (0.6-1.0); GFR 72.4; POTASSIUM 4.1 mmol/L (3.5-5.1); TOTAL BILIRUBIN 1.6 mg/dL (0.2-1.0); TOTAL PROTEIN 7.1 g/dL (6.4-8.2)
[2016-12-27 07:34] VITALS: BP 160/73
[2016-12-27] MEDS: LACTOBACILLUS RHAMNOSUS GG 1 CAPSULE. PO SCH (08:58)
[2016-12-27] MEDS: CARVEDILOL 12.5 MG TABLET. PO SCH ×2 (08:58→18:39)
[2016-12-27] MEDS: DOCUSATE SODIUM 100 MG CAPSULE. PO SCH (08:58)
[2016-12-27] MEDS: HYDROcodone/APAP 5/325MG 1 TAB TABLET PO PRN ×2 (09:00→15:17)
--- NOTE | 2016-12-27 10:33 | PDOC ---
SURGICAL PROGRESS NOTE Subjective some RUQ pain tolerating diet Vital Signs Vital Signs Date Time Temp Pulse Resp B/P (MAP) Pulse Ox O2 Delivery O2 Flow Rate FiO2 12/27/16 10:02 Room Air 12/27/16 09:00 95 2.0 12/27/16 08:58 60 160/73 12/27/16 07:34 99.5 16 99.5 I&O Intake and Output 12/27/16 07:00 Intake Total 100 ml Balance 100 ml Intake Oral 100 ml # Voids 5 General: Alert, Oriented X3, Cooperative, No acute distress Abdomen: Soft, Other (ADAN serosang, lap sites c/d/i, no erythema) Labs Laboratory Tests Test 12/26/16 03:45 12/27/16 04:25 White Blood Count 9.3 x10^3/uL (4.0-11.0) Red Blood Count 3.54 x10^6/uL (3.50-5.40) Hemoglobin 11.2 g/dL (12.0-15.5) Hematocrit 32.2 % (36.0-47.0) Mean Corpuscular Volume 91 fL (79-100) Mean Corpuscular Hemoglobin 32 pg (25-35) Mean Corpuscular Hemoglobin Concent 35 g/dL (31-37) Red Cell Distribution Width 12.8 % (11.5-14.5) Platelet Count 182 x10^3/uL (140-400) Neutrophils (%) (Auto) 79 % (31-73) Lymphocytes (%) (Auto) 13 % (24-48) Monocytes (%) (Auto) 8 % (0-9) Eosinophils (%) (Auto) 0 % (0-3) Basophils (%) (Auto) 0 % (0-3) Neutrophils # (Auto) 7.3 x10^3uL (1.8-7.7) Lymphocytes # (Auto) 1.3 x10^3/uL (1.0-4.8) Monocytes # (Auto) 0.7 x10^3/uL (0.0-1.1) Eosinophils # (Auto) 0.0 x10^3/uL (0.0-0.7) Basophils # (Auto) 0.0 x10^3/uL (0.0-0.2) Sodium Level 139 mmol/L (136-145) 139 mmol/L (136-145) Potassium Level 4.1 mmol/L (3.5-5.1) 4.1 mmol/L (3.5-5.1) Chloride Level 106 mmol/L (98-107) 103 mmol/L (98-107) Carbon Dioxide Level 27 mmol/L (21-32) 32 mmol/L (21-32) Anion Gap 6 (6-14) 4 (6-14) Blood Urea Nitrogen 14 mg/dL (7-20) 9 mg/dL (7-20) Creatinine 0.7 mg/dL (0.6-1.0) 0.8 mg/dL (0.6-1.0) Estimated GFR (Cockcroft-Gault) 84.5 72.4 BUN/Creatinine Ratio 20 (6-20) 11 (6-20) Glucose Level 121 mg/dL (70-99) 102 mg/dL (70-99) Calcium Level 8.4 mg/dL (8.5-10.1) 8.9 mg/dL (8.5-10.1) Total Bilirubin 1.8 mg/dL (0.2-1.0) 1.6 mg/dL (0.2-1.0) Aspartate Amino Transf (AST/SGOT) 660 U/L (15-37) 372 U/L (15-37) Alanine Aminotransferase (ALT/SGPT) 998 U/L (14-59) 988 U/L (14-59) Alkaline Phosphatase 557 U/L (46-116) 631 U/L (46-116) Total Protein 6.3 g/dL (6.4-8.2) 7.1 g/dL (6.4-8.2) Albumin 2.0 g/dL (3.4-5.0) 2.3 g/dL (3.4-5.0) Albumin/Globulin Ratio 0.5 (1.0-1.7) 0.5 (1.0-1.7) Laboratory Tests Test 12/27/16 04:25 Sodium Level 139 mmol/L (136-145) Potassium Level 4.1 mmol/L (3.5-5.1) Chloride Level 103 mmol/L (98-107) Carbon Dioxide Level 32 mmol/L (21-32) Anion Gap 4 (6-14) Blood Urea Nitrogen 9 mg/dL (7-20) Creatinine 0.8 mg/dL (0.6-1.0) Estimated GFR (Cockcroft-Gault) 72.4 BUN/Creatinine Ratio 11 (6-20) Glucose Level 102 mg/dL (70-99) Calcium Level 8.9 mg/dL (8.5-10.1) Total Bilirubin 1.6 mg/dL (0.2-1.0) Aspartate Amino Transf (AST/SGOT) 372 U/L (15-37) Alanine Aminotransferase (ALT/SGPT) 988 U/L (14-59) Alkaline Phosphatase 631 U/L (46-116) Total Protein 7.1 g/dL (6.4-8.2) Albumin 2.3 g/dL (3.4-5.0) Albumin/Globulin Ratio 0.5 (1.0-1.7) Problem List s/p lap chyna would continue drain and FU next week for removal Script for Augmentin on chart, also script for pain med, script for LTFs in 1 week Lfts unchanged, bili down, repeat lab before FU appt noted still requiring O2--defer this to [facility], home when medically stable Problems: JEROME PACHECO [employer] Dec 27, 2016 10:33
[2016-12-27 10:55] VITALS: BP 152/80
--- NOTE | 2016-12-27 11:27 | PDOC ---
Subjective: Subjective: Family asks when she can leave. Has some RUQ discomfort. Objective: Objective: Tmax 99.5 Plans for CXR, 6 min walk. Vital Signs: Vital Signs Date Time Temp Pulse Resp B/P (MAP) Pulse Ox O2 Delivery O2 Flow Rate FiO2 12/27/16 10:55 98.4 69 16 152/80 (104) 94 Nasal Cannula 2.0 98.4 Labs: Laboratory Tests Test 12/27/16 04:25 Sodium Level 139 mmol/L Potassium Level 4.1 mmol/L Chloride Level 103 mmol/L Carbon Dioxide Level 32 mmol/L Anion Gap 4 Blood Urea Nitrogen 9 mg/dL Creatinine 0.8 mg/dL Estimated GFR (Cockcroft-Gault) 72.4 BUN/Creatinine Ratio 11 Glucose Level 102 mg/dL Calcium Level 8.9 mg/dL Total Bilirubin 1.6 mg/dL Aspartate Amino Transf (AST/SGOT) 372 U/L Alanine Aminotransferase (ALT/SGPT) 988 U/L Alkaline Phosphatase 631 U/L Total Protein 7.1 g/dL Albumin 2.3 g/dL Albumin/Globulin Ratio 0.5 PE: GEN: NAD, up to chair eating LUNGS: clear (no nasal cannula when I saw) HEART: RRR ABD: soft, RUQ tenderness around drain NEURO/PSYCH: A & O 3, smiling A/P: Obstructive jaundice s/p ERCP and cholecystectomy -- Bili improved, other LFTs still elevated. DC per primary/surgery. JAIME WARREN Dec 27, 2016 11:27
[2016-12-27] MEDS ORDERED: IOHEXOL 300 MG/ML 100ML VIAL. IV ONE (13:00)
[2016-12-27] MEDS ORDERED: CONTRAST GIVEN MC PRN (13:15)
--- NOTE | 2016-12-27 13:24 | PDOC ---
PROGRESS NOTES Chief Complaint Chief Complaint Post op lap chyna acute abd pain, acute cholecystitis with choledochalithiasis s acute transaminitis, sepsis, HTN hypoKalemia, corrected Hypoxia History of Present Illness History of Present Illness Cleared from to go home wth ADAN drain BUt reports of desats to 85% NOn smoker, clean living, no COPD NO CXR on admit (did not need one) From another state and did 16 hrs in car, stood up 3-4 times only for fueling, FAmily wants to go home SOme soa initially HR 100s? PLAN: STAT CTA r/o PE; D dimer ordered and 6MW WIll see results CT to decide dispo Vitals Vitals Vital Signs Date Time Temp Pulse Resp B/P (MAP) Pulse Ox O2 Delivery O2 Flow Rate FiO2 12/27/16 12:19 93 Room Air 12/27/16 10:55 98.4 69 16 152/80 (104) 2.0 98.4 Physical Exam General: Alert, Oriented X3, Cooperative, No acute distress Heart: Regular rate, Normal S1, Normal S2, No murmurs Lungs: Clear Abdomen: Soft, Other (ADAN serosang, lap sites c/d/i, no erythema) Extremities: No clubbing, No cyanosis, No edema Skin: No rashes, No breakdown Labs LABS Laboratory Tests Test 12/27/16 04:25 12/27/16 12:50 Sodium Level 139 mmol/L (136-145) Potassium Level 4.1 mmol/L (3.5-5.1) Chloride Level 103 mmol/L (98-107) Carbon Dioxide Level 32 mmol/L (21-32) Anion Gap 4 (6-14) Blood Urea Nitrogen 9 mg/dL (7-20) Creatinine 0.8 mg/dL (0.6-1.0) Estimated GFR (Cockcroft-Gault) 72.4 BUN/Creatinine Ratio 11 (6-20) Glucose Level 102 mg/dL (70-99) Calcium Level 8.9 mg/dL (8.5-10.1) Total Bilirubin 1.6 mg/dL (0.2-1.0) Aspartate Amino Transf (AST/SGOT) 372 U/L (15-37) Alanine Aminotransferase (ALT/SGPT) 988 U/L (14-59) Alkaline Phosphatase 631 U/L (46-116) Total Protein 7.1 g/dL (6.4-8.2) Albumin 2.3 g/dL (3.4-5.0) Albumin/Globulin Ratio 0.5 (1.0-1.7) D-Dimer (Kathy) 3.04 ug/mlFEU (0.00-0.50) Review of Systems Review of Systems soa, no cp, abd pain, emesis, no fevers Comment Review of Relevant I have reviewed the following items les (where applicable) has been applied. Labs Laboratory Tests Test 12/26/16 03:45 12/27/16 04:25 12/27/16 12:50 White Blood Count 9.3 x10^3/uL (4.0-11.0) Red Blood Count 3.54 x10^6/uL (3.50-5.40) Hemoglobin 11.2 g/dL (12.0-15.5) Hematocrit 32.2 % (36.0-47.0) Mean Corpuscular Volume 91 fL (79-100) Mean Corpuscular Hemoglobin 32 pg (25-35) Mean Corpuscular Hemoglobin Concent 35 g/dL (31-37) Red Cell Distribution Width 12.8 % (11.5-14.5) Platelet Count 182 x10^3/uL (140-400) Neutrophils (%) (Auto) 79 % (31-73) Lymphocytes (%) (Auto) 13 % (24-48) Monocytes (%) (Auto) 8 % (0-9) Eosinophils (%) (Auto) 0 % (0-3) Basophils (%) (Auto) 0 % (0-3) Neutrophils # (Auto) 7.3 x10^3uL (1.8-7.7) Lymphocytes # (Auto) 1.3 x10^3/uL (1.0-4.8) Monocytes # (Auto) 0.7 x10^3/uL (0.0-1.1) Eosinophils # (Auto) 0.0 x10^3/uL (0.0-0.7) Basophils # (Auto) 0.0 x10^3/uL (0.0-0.2) Sodium Level 139 mmol/L (136-145) 139 mmol/L (136-145) Potassium Level 4.1 mmol/L (3.5-5.1) 4.1 mmol/L (3.5-5.1) Chloride Level 106 mmol/L (98-107) 103 mmol/L (98-107) Carbon Dioxide Level 27 mmol/L (21-32) 32 mmol/L (21-32) Anion Gap 6 (6-14) 4 (6-14) Blood Urea Nitrogen 14 mg/dL (7-20) 9 mg/dL (7-20) Creatinine 0.7 mg/dL (0.6-1.0) 0.8 mg/dL (0.6-1.0) Estimated GFR (Cockcroft-Gault) 84.5 72.4 BUN/Creatinine Ratio 20 (6-20) 11 (6-20) Glucose Level 121 mg/dL (70-99) 102 mg/dL (70-99) Calcium Level 8.4 mg/dL (8.5-10.1) 8.9 mg/dL (8.5-10.1) Total Bilirubin 1.8 mg/dL (0.2-1.0) 1.6 mg/dL (0.2-1.0) Aspartate Amino Transf (AST/SGOT) 660 U/L (15-37) 372 U/L (15-37) Alanine Aminotransferase (ALT/SGPT) 998 U/L (14-59) 988 U/L (14-59) Alkaline Phosphatase 557 U/L (46-116) 631 U/L (46-116) Total Protein 6.3 g/dL (6.4-8.2) 7.1 g/dL (6.4-8.2) Albumin 2.0 g/dL (3.4-5.0) 2.3 g/dL (3.4-5.0) Albumin/Globulin Ratio 0.5 (1.0-1.7) 0.5 (1.0-1.7) D-Dimer (Kathy) 3.04 ug/mlFEU (0.00-0.50) Laboratory Tests Test 12/27/16 04:25 12/27/16 12:50 Sodium Level 139 mmol/L (136-145) Potassium Level 4.1 mmol/L (3.5-5.1) Chloride Level 103 mmol/L (98-107) Carbon Dioxide Level 32 mmol/L (21-32) Anion Gap 4 (6-14) Blood Urea Nitrogen 9 mg/dL (7-20) Creatinine 0.8 mg/dL (0.6-1.0) Estimated GFR (Cockcroft-Gault) 72.4 BUN/Creatinine Ratio 11 (6-20) Glucose Level 102 mg/dL (70-99) Calcium Level 8.9 mg/dL (8.5-10.1) Total Bilirubin 1.6 mg/dL (0.2-1.0) Aspartate Amino Transf (AST/SGOT) 372 U/L (15-37) Alanine Aminotransferase (ALT/SGPT) 988 U/L (14-59) Alkaline Phosphatase 631 U/L (46-116) Total Protein 7.1 g/dL (6.4-8.2) Albumin 2.3 g/dL (3.4-5.0) Albumin/Globulin Ratio 0.5 (1.0-1.7) D-Dimer (Kathy) 3.04 ug/mlFEU (0.00-0.50) Medications Current Medications Sodium Chloride 1,000 ml @ 100 mls/hr Q10H IV Last administered on 12/22/16 20:45; Start 12/22/16 at 20:45; Stop 12/23/16 at 08:51; Status DC Morphine Sulfate 4 mg PRN Q2HR PRN IV PAIN Last administered on 12/25/16 05: 11; Start 12/22/16 at 20:45; Stop 12/27/16 at 12:58; Status DC Ondansetron HCl (Zofran) 4 mg PRN Q8HRS PRN IV NAUSEA/VOMITING; Start at 20:45; Stop 12/25/16 at 14:41; Status DC Piperacillin Sod/ Tazobactam Sod (Zosyn Per Pharmacy) 1 each PRN DAILY PRN MC SEE COMMENTS; Start 12/22/16 at 20:45 Piperacillin Sod/ Tazobactam Sod (Zosyn) 3.375 gm Q6HRS IVP Last administered on 12/27/16 12:44; Start 12/23/16 at 00:00 Simvastatin (Zocor) 20 mg HS PO Last administered on 12/26/16 22:37; Start 12/23/16 at 21:00 Hydrochlorothiazide (Hydrodiuril) 25 mg DAILY PO ; Start 12/23/16 at 09:00; Stop 12/23/16 at 14:51; Status DC Amlodipine Besylate (Norvasc) 10 mg DAILY PO ; Start 12/23/16 at 09:00; Stop 12/23/16 at 14:51; Status DC Carvedilol (Coreg) 12.5 mg BIDWMEALS PO Last administered on 12/27/16 08:58; Start 12/23/16 at 08:00 Potassium Chloride/Dextrose/ Sod Cl 1,000 ml @ 100 mls/hr BID IV Last administered on 12/23/16 06:26; Start 12/23/16 at 09:00; Stop 12/23/16 at 09 :00; Status DC Potassium Chloride/Dextrose/ Sod Cl 1,000 ml @ 250 mls/hr CONT PRN IV SEE I/O RECORD; Start 12/23/16 at 09:00; Status Cancel Potassium Chloride 40 meq/ Sodium Chloride 520 ml @ 130 mls/hr 1X ONCE IV Last administered on 12/23/16 11:19; Start 12/23/16 at 11:00; Stop 12/23/16 at 14:59; Status DC Acetaminophen (Tylenol) 650 mg PRN Q6HRS PRN PO FEVER Last administered on 18:00; Start 12/23/16 at 15:00 Ondansetron HCl (Zofran) 4 mg PRN Q6HRS PRN IV NAUSEA/VOMITING; Start at 15:00; Status UNV Morphine Sulfate 2 mg PRN Q2HR PRN IV PAIN; Start 12/23/16 at 15:00; Status UNV Tramadol HCl (Ultram) 50 mg PRN Q6HRS PRN PO MILD PAIN; Start 12/23/16 at 15: 00 Hydralazine HCl (Apresoline Inj) 10 mg PRN Q4HRS PRN IVP ELEVATED BP, SEE COMMENTS; Start 12/23/16 at 15:00 Docusate Sodium (Colace) 100 mg PRN DAILY PRN PO CONSTIPATION; Start 12/23/16 at 15:00 Famotidine (Pepcid Vial) 20 mg QHS IVP Last administered on 12/25/16 20:32; Start 12/23/16 at 21:00; Stop 12/26/16 at 14:38; Status DC Enoxaparin Sodium (Lovenox 40mg Syringe) 40 mg DAILY SQ ; Start 12/24/16 at 09: 00; Stop 12/24/16 at 14:57; Status DC Iohexol (Omnipaque 300 Mg/ml) 100 ml STK-MED ONCE .ROUTE ; Start 12/23/16 at 16 :19; Stop 12/23/16 at 16:20; Status DC Lidocaine HCl (Lidocaine Pf 2% Vial) 5 ml STK-MED ONCE .ROUTE ; Start 12/23/16 at 16:37; Stop 12/23/16 at 16:38; Status DC Potassium Chloride/Dextrose/ Sod Cl 1,000 ml @ 70 mls/hr [id number] IV Last administered on 12/24/16 23:52; Start 12/24/16 at 01:45; Stop 12/25/16 at 22 :08; Status DC Ondansetron HCl (Zofran) 4 mg PRN Q6HRS PRN IV NAUSEA/VOMITING Last administered on 12/25/16 05:11; Start 12/24/16 at 07:30; Stop 12/25/16 at 07 :29; Status DC Fentanyl Citrate (Fentanyl 2ml Vial) 25 mcg PRN Q5MIN PRN IV MILD PAIN Last administered on 12/24/16 15:44; Start 12/24/16 at 07:30; Stop 12/25/16 at 04 :42; Status DC Fentanyl Citrate (Fentanyl 2ml Vial) 50 mcg PRN Q5MIN PRN IV MODERATE PAIN Last administered on 12/24/16 15:56; Start 12/24/16 at 07:30; Stop 12/25/16 at 04:42; Status DC Morphine Sulfate 1 mg PRN Q10MIN PRN IV SEVERE PAIN; Start 12/24/16 at 07:30; Stop 12/25/16 at 04:42; Status DC Ringer's Solution 1,000 ml @ 30 mls/hr Q24H IV Last administered on 11:30; Start 12/24/16 at 07:29; Stop 12/24/16 at 19:28; Status DC Lidocaine HCl (Xylocaine-Mpf 1% Vial) 2 ml 1X PRN PRN ID IV START; Start 12/24 at 07:30; Stop 12/25/16 at 04:42; Status DC Hydromorphone HCl (Dilaudid) 0.5 mg PRN Q10MIN PRN IV SEV PAIN, Second choice; Start 12/24/16 at 07:30; Stop 12/25/16 at 04:42; Status DC Prochlorperazine Edisylate (Compazine) 5 mg PACU PRN PRN IV NAUSEA, MRX1; Start 12/24/16 at 07:30; Stop 12/25/16 at 04:42; Status DC Iohexol (Omnipaque 300 Mg/ml) 50 ml STK-MED ONCE .ROUTE Last administered on 14:01; Start 12/24/16 at 10:26; Stop 12/24/16 at 10:27; Status DC Bupivacaine HCl/ Epinephrine Bitart (Sensorcain-Mpf Epi 0.5%-1:[id number]) 30 ml STK -MED ONCE .ROUTE Last administered on 12/24/16 14:01; Start 12/24/16 at 10: 26; Stop 12/24/16 at 10:27; Status DC Cellulose 1 each STK-MED ONCE .ROUTE ; Start 12/24/16 at 10:26; Stop 12/24/16 at 10:27; Status DC Heparin Sodium (Porcine) (Heparin Sodium) 10,000 unit STK-MED ONCE .ROUTE Last administered on 12/24/16 14:01; Start 12/24/16 at 10:26; Stop 12/24/16 at 10 :27; Status DC Bisacodyl (Dulcolax Supp) 10 mg STK-MED ONCE .ROUTE Last administered on 14:01; Start 12/24/16 at 10:26; Stop 12/24/16 at 10:27; Status DC Neostigmine Methylsulfate (Bloxiverz) 10 mg STK-MED ONCE .ROUTE ; Start at 12:06; Stop 12/24/16 at 12:07; Status DC Rocuronium [place] (Zemuron) 50 mg STK-MED ONCE .ROUTE ; Start 12/24/16 at 12: 06; Stop 12/24/16 at 12:07; Status DC Fentanyl Citrate (Fentanyl 2ml Vial) 100 mcg STK-MED ONCE .ROUTE ; Start at 12:06; Stop 12/24/16 at 12:07; Status DC Midazolam HCl (Versed) 2 mg STK-MED ONCE .ROUTE ; Start 12/24/16 at 12:06; Stop 12/24/16 at 12:07; Status DC Glycopyrrolate (Robinul) 1 mg STK-MED ONCE .ROUTE ; Start 12/24/16 at 12:07; Stop 12/24/16 at 12:08; Status DC Propofol 20 ml @ As Directed STK-MED ONCE IV ; Start 12/24/16 at 12:07; Stop 12/24/16 at 12:08; Status DC Propofol 20 ml @ As Directed STK-MED ONCE IV ; Start 12/24/16 at 12:07; Stop 12/24/16 at 12:08; Status DC Lidocaine HCl (Lidocaine Pf 2% Vial) 5 ml STK-MED ONCE .ROUTE ; Start 12/24/16 at 12:07; Stop 12/24/16 at 12:08; Status DC Ondansetron HCl (Zofran) 4 mg STK-MED ONCE .ROUTE ; Start 12/24/16 at 12:07; Stop 12/24/16 at 12:08; Status DC Dexamethasone Sodium Phosphate (Decadron) 20 mg STK-MED ONCE .ROUTE ; Start at 12:07; Stop 12/24/16 at 12:08; Status DC Phenylephrine HCl 1 mg STK-MED ONCE IV ; Start 12/24/16 at 13:54; Stop at 13:55; Status DC Fentanyl Citrate (Fentanyl 2ml Vial) 100 mcg STK-MED ONCE .ROUTE ; Start at 14:11; Stop 12/24/16 at 14:12; Status DC Enoxaparin Sodium (Lovenox 40mg Syringe) 40 mg Q24H SQ Last administered on t 17:33; Start 12/24/16 at 18:00 Sodium Chloride (Normal Saline Flush) 3 ml QSHIFT PRN IV AFTER MEDS AND BLOOD DRAWS; Start 12/24/16 at 15:00 Ringer's Solution 1,000 ml @ 100 mls/hr Q10H IV ; Start 12/24/16 at 14:47; Stop 12/25/16 at 04:42; Status DC Dextrose (Dextrose 50%-Water Syringe) 12.5 gm PRN Q15MIN PRN IV SEE COMMENTS; Start 12/24/16 at 15:00 Acetaminophen/ Hydrocodone Bitart (Lortab 5/325) 1 tab PRN Q4HRS PRN PO MODERATE PAIN Last administered on 12/27/16 09:00; Start 12/24/16 at 15:00 Morphine Sulfate 1 mg PRN Q1HR PRN IV PAIN; Start 12/24/16 at 15:00 Docusate Sodium (Colace) 100 mg BID PO Last administered on 12/27/16 08:58; Start 12/24/16 at 21:00 Ondansetron HCl (Zofran) 4 mg PRN Q6HRS PRN IV NAUESA, 1ST CHOICE; Start 12/24 at 15:00 Fentanyl Citrate (Fentanyl 2ml Vial) 100 mcg STK-MED ONCE .ROUTE ; Start at 15:42; Stop 12/24/16 at 15:43; Status DC Lactobacillus Rhamnosus (Culturelle) 1 cap BID PO Last administered on 08:58; Start 12/25/16 at 21:00 Rocuronium [place] (Zemuron) 50 mg STK-MED ONCE .ROUTE ; Start 12/25/16 at 12: 00; Stop 12/26/16 at 08:35; Status DC Propofol (Diprivan) 200 mg STK-MED ONCE IV ; Start 12/25/16 at 12:00; Stop at 08:35; Status DC Famotidine (Pepcid) 20 mg QHS PO Last administered on 12/26/16 22:37; Start 12/26/16 at 21:00 Iohexol (Omnipaque 300 Mg/ml) 75 ml 1X ONCE IV ; Start 12/27/16 at 13:00; Stop 12/27/16 at 13:03; Status DC Info (Do NOT chart on this entry -- for MONITORING) 1 each PRN DAILY PRN MC SEE COMMENTS; Start 12/27/16 at 13:15; Stop 12/29/16 at 13:14 Vitals/I & O Vital Sign - Last 24 Hours 12/26/16 12/26/16 12/26/16 12/26/16 15:00 17:32 17:32 19:00 Temp 98.3 99.0 98.3 99.0 Pulse 61 64 67 Resp 18 18 B/P (MAP) 166/77 (106) 162/75 161/91 (114) Pulse Ox 92 95 O2 Delivery Nasal Cannula Room Air Nasal Cannula O2 Flow Rate 1.0 1.0 12/26/16 12/26/16 12/27/16 12/27/16 23:00 23:00 03:05 07:34 Temp 99.0 99.0 99.1 99.5 99.0 99.0 99.1 99.5 Pulse 67 65 64 60 Resp 16 16 B/P (MAP) 161/91 (114) 163/81 (108) 176/77 (110) 160/73 (102) Pulse Ox 95 93 95 95 O2 Delivery Nasal Cannula Nasal Cannula Nasal Cannula Nasal Cannula O2 Flow Rate 1.0 1.0 1.0 2.0 12/27/16 12/27/16 12/27/16 12/27/16 08:58 09:00 10:02 10:55 Temp 98.4 98.4 Pulse 60 69 Resp 16 B/P (MAP) 160/73 152/80 (104) Pulse Ox 95 94 O2 Delivery Nasal Cannula Room Air Nasal Cannula O2 Flow Rate 2.0 2.0 12/27/16 12:19 Pulse Ox 93 O2 Delivery Room Air Intake and Output 12/26/16 12/26/16 12/27/16 15:00 23:00 07:00 Intake Total 100 ml Balance 100 ml KAMRYN DIALLO MD Dec 27, 2016 13:24
--- NOTE | 2016-12-27 14:04 | RAD ---
CTA chest with contrast Indication: [id number] 75ML, PE PROTOCOL, SOA . Comparison: No comparison is available. Technique: After bolus of intravenous contrast, CT imaging was performed of the chest. MIP reconstructions were obtained. Exposure: One or more of the following individualized dose reduction techniques were utilized for this examination: 1. Automated exposure control 2. Adjustment of the mA and/or kV according to patient size 3. Use of iterative reconstruction technique. Findings: Pulmonary arteries:No evidence of pulmonary embolism. Thoracic aorta: No evidence of an aneurysm. Insufficiently opacified but no obvious dissection. Thyroid gland:Visualized aspect is unremarkable. Lymph nodes: Small mediastinal lymph nodes are noted. No bulky lymph node enlargement. Heart: Enlarged Pleural spaces: Small right pleural effusion. Very small left pleural effusion. Lungs: Infiltrate or consolidation in both lower lobes. Trachea and central airways: Patent Bones: Degenerative changes of the thoracic spine. Upper abdomen: Slices were obtained through the upper abdomen, but are of limited usefulness due to technique. There is a biliary stent. There are surgical clips in the gallbladder fossa. There is a partially visualized fluid and air collection in the gallbladder fossa. This presumably represents a loop of bowel. If there are right upper quadrant symptoms or other clinical concern, an abscess could result in this appearance. If so, recommend CT abdomen with oral contrast. Impression: 1. Negative for pulmonary embolism. 2. Small pleural effusions. 3. Infiltrates or consolidation in both lower lobes. 4. Partially visualized air and fluid collection in the gallbladder fossa is presumably normal bowel. However, if there is any clinical concern, a CT of the abdomen with oral contrast could be of benefit. Electronically signed by: Ulises Foley MD (12/27/2016 2:01 PM) [facility]
--- NOTE | 2016-12-27 14:13 | PDOC3 ---
Discharge Summary Visit Information Date of Admission: Dec 22, 2016 Date of Discharge: Dec 27, 2016 Admitting Diagnosis Comment: Post op lap chyna acute abd pain, acute cholecystitis with choledochalithiasis s acute transaminitis, sepsis, HTN hypoKalemia, corrected Hypoxia neg PE Bilateral small effusions Brief Hospital Course Allergies Allergies Coded Allergies Type Severity Reaction Last Updated Verified No Known Drug Allergies 12/23/16 No Vital Signs Vital Signs Date Time Temp Pulse Resp B/P (MAP) Pulse Ox O2 Delivery O2 Flow Rate FiO2 12/27/16 12:19 93 Room Air 12/27/16 10:55 98.4 69 16 152/80 (104) 2.0 98.4 Lab Results Laboratory Tests Test 12/26/16 03:45 12/27/16 04:25 12/27/16 12:50 White Blood Count 9.3 x10^3/uL (4.0-11.0) Red Blood Count 3.54 x10^6/uL (3.50-5.40) Hemoglobin 11.2 g/dL (12.0-15.5) Hematocrit 32.2 % (36.0-47.0) Mean Corpuscular Volume 91 fL (79-100) Mean Corpuscular Hemoglobin 32 pg (25-35) Mean Corpuscular Hemoglobin Concent 35 g/dL (31-37) Red Cell Distribution Width 12.8 % (11.5-14.5) Platelet Count 182 x10^3/uL (140-400) Neutrophils (%) (Auto) 79 % (31-73) Lymphocytes (%) (Auto) 13 % (24-48) Monocytes (%) (Auto) 8 % (0-9) Eosinophils (%) (Auto) 0 % (0-3) Basophils (%) (Auto) 0 % (0-3) Neutrophils # (Auto) 7.3 x10^3uL (1.8-7.7) Lymphocytes # (Auto) 1.3 x10^3/uL (1.0-4.8) Monocytes # (Auto) 0.7 x10^3/uL (0.0-1.1) Eosinophils # (Auto) 0.0 x10^3/uL (0.0-0.7) Basophils # (Auto) 0.0 x10^3/uL (0.0-0.2) Sodium Level 139 mmol/L (136-145) 139 mmol/L (136-145) Potassium Level 4.1 mmol/L (3.5-5.1) 4.1 mmol/L (3.5-5.1) Chloride Level 106 mmol/L (98-107) 103 mmol/L (98-107) Carbon Dioxide Level 27 mmol/L (21-32) 32 mmol/L (21-32) Anion Gap 6 (6-14) 4 (6-14) Blood Urea Nitrogen 14 mg/dL (7-20) 9 mg/dL (7-20) Creatinine 0.7 mg/dL (0.6-1.0) 0.8 mg/dL (0.6-1.0) Estimated GFR (Cockcroft-Gault) 84.5 72.4 BUN/Creatinine Ratio 20 (6-20) 11 (6-20) Glucose Level 121 mg/dL (70-99) 102 mg/dL (70-99) Calcium Level 8.4 mg/dL (8.5-10.1) 8.9 mg/dL (8.5-10.1) Total Bilirubin 1.8 mg/dL (0.2-1.0) 1.6 mg/dL (0.2-1.0) Aspartate Amino Transf (AST/SGOT) 660 U/L (15-37) 372 U/L (15-37) Alanine Aminotransferase (ALT/SGPT) 998 U/L (14-59) 988 U/L (14-59) Alkaline Phosphatase 557 U/L (46-116) 631 U/L (46-116) Total Protein 6.3 g/dL (6.4-8.2) 7.1 g/dL (6.4-8.2) Albumin 2.0 g/dL (3.4-5.0) 2.3 g/dL (3.4-5.0) Albumin/Globulin Ratio 0.5 (1.0-1.7) 0.5 (1.0-1.7) D-Dimer (Kathy) 3.04 ug/mlFEU (0.00-0.50) Laboratory Tests Test 12/27/16 04:25 12/27/16 12:50 Sodium Level 139 mmol/L (136-145) Potassium Level 4.1 mmol/L (3.5-5.1) Chloride Level 103 mmol/L (98-107) Carbon Dioxide Level 32 mmol/L (21-32) Anion Gap 4 (6-14) Blood Urea Nitrogen 9 mg/dL (7-20) Creatinine 0.8 mg/dL (0.6-1.0) Estimated GFR (Cockcroft-Gault) 72.4 BUN/Creatinine Ratio 11 (6-20) Glucose Level 102 mg/dL (70-99) Calcium Level 8.9 mg/dL (8.5-10.1) Total Bilirubin 1.6 mg/dL (0.2-1.0) Aspartate Amino Transf (AST/SGOT) 372 U/L (15-37) Alanine Aminotransferase (ALT/SGPT) 988 U/L (14-59) Alkaline Phosphatase 631 U/L (46-116) Total Protein 7.1 g/dL (6.4-8.2) Albumin 2.3 g/dL (3.4-5.0) Albumin/Globulin Ratio 0.5 (1.0-1.7) D-Dimer (Kathy) 3.04 ug/mlFEU (0.00-0.50) Brief Hospital Course Ms. Daniels is a 61 old female, no signif past medical, admitted for abd pain with elevated lFts, underwent lap chyna with indwelling ADAN drain, cleared from GS to go home with drain, but had some hypoxia, So i ordered stat CTA and d maxine , CTA neg for pe but some mild small bilateral effusions, She apssed 6mW, Likely will just need IS 2 notes today Home today Discharge Information Condition at Discharge: Improved, Stable Disposition/Orders: D/C to Home KAMRYN DIALLO MD Dec 27, 2016 14:13
--- NOTE | 2016-12-27 14:19 | PATHOLOGY ---
PATHOLOGY REPORT * * * * * * * * FINAL DIAGNOSIS: Gallbladder, laparoscopic cholecystectomy: - Bile sludge. 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 COMMENT: There are no calculi identified within the gallbladder lumen or specimen container. There is no evidence of malignancy. (JPM:; 12/27/2016) REPORT ELECTRONICALLY SIGNED BY: Ray Gage M.D. DATE/TIME: 12/27/2016 14:18 * * * * * * * * GROSS PATHOLOGY: Received in formalin labeled "Megan Bush gallbladder," is an 8.4 x 3.7 x 2.0 cm, previously punctured gallbladder with light tolliver to purple, slightly vascular serosal surfaces. Opening the gallbladder reveals light tolliver, grainy mucosa covered with sludgy material, and an average wall thickness of 0.1 cm. Calculi are not present and no masses are noted grossly. Middle Stitcher sections from the body and fundus are submitted along with the proximal margin in cassette A1. (TSD; 12/26/2016) INITIAL CPT CODE(S): A; 78360 Professional services performed [place] [facility] [place] [address] Technical services performed by [employer] at [address] [place] [address], [facility] [address], [place] [address]. SPECIMEN(S) RECEIVED: A.Gallbladder CLINICAL HISTORY: Cholecystitis with obstruction PATIENT: MEGAN BUSH /AGE: 1112/23/1955 (Age: 61) PATIENT #: [id number] ALT CASE #: SPECIMEN COLLECTION DATE: 12/24/2016 SPECIMEN RECEIVED DATE: 12/26/2016 [facility] - [id number] [place] [address] - PHONE: [phone] * * * END OF REPORT * * *
[2016-12-27 14:55] VITALS: BP 128/70
[2016-12-27 18:39] VITALS: BP 128/70
[2016-12-27] MEDS: ENOXAPARIN 40 MG/0.4 ML SYRINGE. SQ SCH (18:40)
--- NOTE | 2017-01-06 10:54 | DS ---
DATE OF DISCHARGE: 12/27/2016 ADMISSION DIAGNOSIS: Cholecystitis. DISCHARGE DIAGNOSIS: Postop laparoscopic cholecystectomy. HOSPITAL COURSE: The patient is a pleasant 61-year-old female, presented with cholecystitis. She was admitted. We consulted General Surgery. We gave her IV antibiotics. When she was doing better, she was taken for surgery, laparoscopic cholecystectomy. She did well. We discharged to home. DISPOSITION: Home. ACTIVITY: As tolerated. DIET: Low sodium. MEDICATIONS: Please see the MRAD. TOTAL TIME: 34 minutes. SIENA ALMONTE DO DR: BULMARO/francia JOB#: [id number] / [id number]
== END 2016-12-27 17:00 | disposition home or self-care (01) | DRG 853 ==
LOC: 4 NORTH 19:35
PROVIDERS: ADMIT Internal Medicine; ATTEND Internal Medicine
PROC: 0FT44ZZ Resection of Gallbladder, Percutaneous Endoscopic Approach (ICD-10-PCS; principal; 2016-12-22)
PROC: BF101ZZ Fluoroscopy of Bile Ducts using Low Osmolar Contrast (ICD-10-PCS; 2016-12-23)
PROC: 0FC98ZZ Extirpation of Matter from Common Bile Duct, Via Natural or Artificial Opening Endoscopic (ICD-10-PCS; 2016-12-23)
DX: A41.9 Sepsis, unspecified organism (principal); E43 Unspecified severe protein-calorie malnutrition; K80.43 Calculus of bile duct with acute cholecystitis with obstruction; E78.5 Hyperlipidemia, unspecified; E87.6 Hypokalemia; I10 Essential (primary) hypertension; K82.8 Other specified diseases of gallbladder; R09.02 Hypoxemia; Z68.24 Body mass index [BMI] 24.0-24.9, adult; R74.0 Nonspecific elevation of levels of transaminase and lactic acid dehydrogenase [LDH]
CPT/HCPCS: 36415; 71275; 74300; 74328; 80053; 82248; 83735; 84132; 85007; 85025; 85379; 85610; 88304; 94620; C1726; J1100; J1644; J1650; J2250; J2270; J2370; J2405; J2543; J2704; J2710; J3010; J3490; J7030; J7040; J7042; J7120; Q9967; S0028; J2001

== ENCOUNTER 2017-02-04 10:03 | Emergency (ER) | payer OTHER ==
[2017-02-04 10:35] LABS: ADD MAN DIFF? NO
[2017-02-04 10:36] LABS: BILIRUBIN,URINE SMALL (NEG); GLUCOSE,URINE NEGATIVE (NEG); NITRITE,URINE NEGATIVE (NEG); PROTEIN,URINE 30 mg/dL (NEG-TRACE)
[2017-02-04 10:52] LABS: ANION GAP 9 (6-14); BLOOD UREA NITROGEN 10 mg/dL (7-20); BUN/CREATININE RATIO 11 (6-20); CALCIUM 9.1 mg/dL (8.5-10.1); CARBON DIOXIDE 33 mmol/L (21-32); CHLORIDE 99 mmol/L (98-107); CREATININE 0.9 mg/dL (0.6-1.0); GFR 63.2; GLUCOSE 134 mg/dL (70-99); POTASSIUM 3.2 mmol/L (3.5-5.1); SODIUM 141 mmol/L (136-145)
[2017-02-04 10:54] LABS: C-REACTIVE PROTEIN 15.2 mg/L (0-3.3)
[2017-02-04 10:57] LABS: BACTERIA,URINE 0 /HPF (0-FEW); RBC,URINE 0 /HPF (0-2); SQUAMOUS EPITHELIAL CELL,UR FEW /LPF
[2017-02-04 11:00] LABS: BASO # 0.1 x10^3/uL (0.0-0.2); BASO % 1 % (0-3); EOS % 3 % (0-3); HEMATOCRIT 39.6 % (36.0-47.0); HEMOGLOBIN 13.5 g/dL (12.0-15.5); LYMPH # 2.2 x10^3/uL (1.0-4.8); LYMPH % 18 % (24-48); MEAN CORPUSCULAR HEMOGLOBIN 30 pg (25-35); MEAN CORPUSCULAR HGB CONC 34 g/dL (31-37); MEAN CORPUSCULAR VOLUME 89 fL (79-100); MONO % 7 % (0-9); NEUT % 71 % (31-73); PLATELET COUNT 332 x10^3/uL (140-400); RED BLOOD COUNT 4.44 x10^6/uL (3.50-5.40); RED CELL DISTRIBUTION WIDTH 12.6 % (11.5-14.5); WHITE BLOOD COUNT 11.8 x10^3/uL (4.0-11.0)
[2017-02-04 11:02] LABS: ALBUMIN 3.6 g/dL (3.4-5.0); ALBUMIN/GLOBULIN RATIO 0.8 (1.0-1.7); ALK PHOS 130 U/L (46-116); ALT (SGPT) 34 U/L (14-59); AST (SGOT) 24 U/L (15-37); TOTAL BILIRUBIN 0.5 mg/dL (0.2-1.0); TOTAL PROTEIN 8.3 g/dL (6.4-8.2)
[2017-02-04] MEDS ORDERED: CONTRAST GIVEN MC (11:15)
[2017-02-04] MEDS: IOHEXOL 300 MG/ML 100ML VIAL. IV (11:41)
== END 2017-02-04 13:05 | disposition home or self-care (01) ==
LOC: ER 10:03
DX: G89.18 Other acute postprocedural pain (principal); R10.11 Right upper quadrant pain; L08.89 Other specified local infections of the skin and subcutaneous tissue; I10 Essential (primary) hypertension; Z90.49 Acquired absence of other specified parts of digestive tract
CPT/HCPCS: 36415; 74177; 80053; 81001; 83690; 85025; 86140; 87086; 99285-25; Q9967